=== PATIENT | female | born 1940 | race Caucasian/White ===

== ENCOUNTER 2016-12-30 17:05 | Observation (INO) | payer MEDICARE, OTHER ==
[~2016-12-30] VITALS: Ht 154.9 cm; Wt 71.3 kg
[~2016-12-30 17:05] MED LIST: ADV250INH INH; LEVO100T5 PO; LOTE1TAB PO
[2016-12-30] MEDS ORDERED: ALBU83IN INH (17:25)
[2016-12-30 17:54] LABS: BASO % 0.7 % (0.0-1.0); EOS # 0.3 K/mm3 (0.0-0.50); EOS % 3.2 % (0.0-3.0); LARGE UNSTAINED CELL # 0.1 K/mm3 (0.0-0.4); LARGE UNSTAINED CELL % 1.3 % (0.0-4.0); LYMPH # 1.5 K/mm3 (1.5-4.5); LYMPH % 16.6 % (24.0-44.0); MEAN CORPUSCULAR HEMOGLOBIN 35.9 pg (27.0-33.0); MEAN CORPUSCULAR VOLUME 105.5 fl (80.0-96.0); MONO # 0.5 K/mm3 (0.0-0.8); MONO % 5.5 % (0.0-5.0); NEUTROPHILS # 6.1 K/mm3 (1.8-7.7); NEUTROPHILS % 72.8 % (36.0-66.0); PLATELET COUNT, AUTOMATED 289 k/mm3 (150-450); WHITE BLOOD COUNT 8.4 K/mm3 (4.0-10.0)
[2016-12-30 18:14] LABS: CREATININE FOR GFR 1.65 MG/DL (0.55-1.02); GLOMERULAR FILTRATION RATE 32.2 (>39); POTASSIUM SERUM 3.4 MEQ/L (3.5-5.1)
[2016-12-30] MEDS ORDERED: SODIUM CHLORIDE 0.9% 1000 ML IV ONE (18:15)
[2016-12-30 19:01] LABS: MAGNESIUM LEVEL 1.4 MG/DL (1.8-2.4)
--- NOTE | 2016-12-30 19:20 | REPUSA ---
CT of the abdomen and pelvis without contrast Clinical statement: Pain. Technique: Multiple axial CT images were obtained from the base of the lungs to the floor of the pelv is utilizing 5 mm axial slices without administration of contrast. Coronal and sagittal reconstructio ns were also obtained. Comparison: 02/25/2015. Findings: Chest: The visualized lung bases demonstrate minimal atelectasis bilaterally. Abdomen: The kidneys are normal in size bilaterally. There is no evidence of hydronephrosis or nephro lithiasis. The liver, spleen, pancreas, gallbladder and adrenal glands are unremarkable. The aorta de monstrates normal caliber and contour. There is no abdominal lymphadenopathy or ascites. Pelvis: The bowel is unremarkable, with no obstructive or inflammatory changes. Diffuse left-sided di verticulosis is stable. The urinary bladder is within normal limits. There is no pelvic lymphadenopat hy or ascites. The other pelvic structures appear unremarkable. Bones: There are no suspicious osseous abnormalities seen. There is moderate degenerative disc diseas e at L2/L3 and L4/L5. Impression: 1. No obstructive or inflammatory bowel changes. Diffuse left-sided diverticulosis. 2. No evidence of hydronephrosis or nephrolithiasis. 3. Minimal atelectasis in the lung bases bilaterally. 4. Multilevel degenerative disc disease in the lumbar spine as described.
[2016-12-30] MEDS ORDERED: MAG SULF 1GM/100ML (MAG RUN) 1 GM in APPROPRIATE DILUENT 1 EA IV ONE (20:00)
[2016-12-30] MEDS ORDERED: VITA500L3 PO (20:45)
[2016-12-30] MEDS ORDERED: OMEP20CA3 PO (20:45)
[2016-12-30] MEDS ORDERED: VITA100041 PO (20:45)
[2016-12-30] MEDS ORDERED: VITA500C3 PO (20:45)
[2016-12-30] MEDS ORDERED: ALBUTEROL SULFATE 2.5 MG/0.5 ML INH NEB SOLN INH PRN (21:15)
[2016-12-30] MEDS ORDERED: OMEPRAZOLE 20 MG CAP PO PRN (21:15)
[2016-12-30] MEDS ORDERED: ACETAMINOPHEN TAB 650MG DOSE (2X325MG) PO PRN (21:15)
[2016-12-30] MEDS ORDERED: BENAZEPRIL 20 MG TAB PO ONE (21:30)
[2016-12-30] MEDS ORDERED: POTASSIUM CHLORIDE 10% LIQ 20 MEQ/15 ML UDC PO ONE (21:45)
--- NOTE | 2016-12-30 22:11 | HPE ---
DATE OF ADMISSION: 12/30/2016 CHIEF COMPLAINT: Syncopal episode. PRIMARY CARE PROVIDER: KECIA Pineda, [facility] in [place]. HISTORY OF PRESENT ILLNESS: This is a 76-year-old female with a history of asthma, hypothyroidism, hypertension who was out shopping with her daughter, they were going to get something to drink, when she became very diaphoretic, felt faint, lightheaded, and the daughter witnessed the patient to have a syncopal episode. Emergency medical service (EMS) was called. Patient was brought to the emergency room. Per EMS, their blood pressure was 99/82. Upon arrival in the emergency room, blood pressure was 113/62, pulse was 80, respirations were 18. Patient states that she has a history of intermittent low abdominal pain that will radiate into her back. She states that she started having the abdominal pain last evening, but it was more intense than she has had it in the past, it lasted all day. She denied any fever, chills, nausea, vomiting, diarrhea, hematochezia, or melena. She states they went shopping, the pain had eased up some, and then she had the faint episode. In the emergency room, white count was 8.4, hemoglobin 12.8, hematocrit 37.7, platelets were 289, sodium was slightly low at 135, potassium 3.4, BUN 48, creatinine 1.6. CPK, CK-MB and troponin were normal. TSH was slightly elevated at 6.38. Magnesium was 1.4. She was given a gram of magnesium and a liter of normal saline. She was feeling better. CT of the abdomen and pelvis was done. She had no obstructive or inflammatory bowel changes, diffuse left-sided diverticulosis, no evidence of hydronephrosis or nephrolithiasis, minimal atelectasis in the lung bases bilaterally, multilevel degenerative disc disease in the lumbar spine. Assessment was done. Patient will be admitted to observation status on telemetry, rule out cardiac arrhythmia, monitor blood pressure, recheck magnesium. ALLERGIES: CODEINE, DIPHENHYDRAMINE, MOXIFLOXACIN, SULFA. SOCIAL HISTORY: Patient is . She does not smoke cigarettes. She occasionally drinks alcohol. She does not use recreational drugs. PAST MEDICAL HISTORY: 1. Asthma. 2. Hypothyroidism. 3. Hypertension. She had a normal echocardiogram 02/26/2015, after a vasovagal syncopal episode at that time. She had normal EGD and colonoscopy, noting only a small hiatal hernia on 02/11/2014. PAST SURGICAL HISTORY: 1. Appendectomy. 2. Vaginal hysterectomy. 3. EGD and colonoscopy. 4. Skin cancer removed from left leg. FAMILY HISTORY: Noncontributory. 10-systems review, other than as described in history of present illness (HPI), was unremarkable. CURRENT MEDICATIONS: - Advair Diskus 250/50 one inhalation twice a day - Lotensin HCT 20/25 one by mouth daily - levothyroxine 100 mcg by mouth daily - albuterol 2.5 mg/3 mL one vial via nebulizer four times a day as needed for shortness of breath or wheeze PHYSICAL EXAMINATION: 76-year-old cooperative female in no acute distress. Blood pressure now 126/66. Height 5 feet 1 inches, weight 150 pounds. The patient is alert and oriented times three. Pupils equal and reactive to light. Extraocular movements are intact. Cornea and sclerae clear. Conjunctivae is normal. No facial asymmetry. Pharynx, tongue, gums pink and moist. Tongue is midline. Neck is supple without lymphadenopathy. No thyromegaly. No goiter. Carotids 2+ without bruit. Chest clear to auscultation without wheeze or retraction. Heart is regular. Abdomen is soft, minimal diffuse tenderness left lower quadrant. No rebound or guarding. No masses, pulsations, or bruits. No organomegaly. Bowel sounds are positive. Genitourinary/rectal not done. Extremities show equal strength, full range of motion. No cyanosis, clubbing, or edema. Hand seed cleaning manager equal. Peripheral pulses equal and palpable bilaterally. Skin is warm and dry. IMPRESSION: Syncopal episode, possible vasovagal. Admit, place on telemetry. Hypomagnesemia. Gram of replacement given. Recheck magnesium level. Hypokalemia. Replacement ordered. Recheck basic metabolic panel (BMP) in the morning. Hypothyroidism. Thyroid stimulating hormone (TSH) is slightly elevated. Will get a thyroid profile in the morning. Adjust dose if needed. History of asthma. Currently clinically stable. Hypertension. Will reorder Lotensin. Hold the HCT now as BUN and creatinine were up slightly. Patient will be admitted to observation status on telemetry. Will monitor for arrhythmias. Will do CT of the head.
[2016-12-30 23:10] VITALS: BP 148/76
--- NOTE | 2016-12-31 03:10 | REPUSA ---
CT of the head Clinical history: Headache. Comparison 02/25/2015. Protocol: Multiple axial CT images obtained with 5 mm slice thickness were obtained through the head without administration of contrast. Findings: The ventricles and sulci are symmetric but prominent in size bilaterally. There are periven tricular areas of low attenuation throughout the deep white matter. There is no evidence of acute hem orrhage or infarct. There is no midline shift, mass effect, or extra-axial fluid collection. The osse ous structures are unremarkable. The visualized paranasal sinuses and mastoid air cells are clear. Impression: No acute hemorrhage or infarct. Findings are consistent with age-related atrophy and [employer]orina small vessel ischemic disease.
[2016-12-31 04:00] VITALS: BP 120/57
[2016-12-31] MEDS ORDERED: LEVOTHYROXINE 0.1 MG TAB (100 MCG) PO SCH (06:00)
[2016-12-31 08:00] VITALS: BP 151/70
--- NOTE | 2016-12-31 08:27 | ECGEPIP ---
Stationary ECG Study [facility] - ED Test Date: 2016-12-30 Pat Name: FRANK SMITH Department: Room: [place] [address] Gender: F Mainframe Consultant: RAVIN : 1940 Requested By: Ronda Wallace Order Number: [id number] Reading MD: Ronda Wallace Measurements Intervals [place] Rate: 83 P: 28 MI: 166 QRS: 3 QRSD: 100 T: 7 QT: 380 QTc: 448 Interpretive Statements SINUS RHYTHM NONSPECIFIC T-WAVE ABNORMALITY DECREASED RATE 02/25/15 Electronically Signed On 12-31-2016 8:26:39 EDT by Ronda Wallace
[2016-12-31] MEDS ORDERED: VITAMIN D 1,000 INTERNATIONAL UNITS TABLET PO SCH (09:00)
[2016-12-31] MEDS ORDERED: ASCORBIC ACID 500 MG TAB PO SCH (09:00)
[2016-12-31] MEDS ORDERED: CYANOCOBALAMIN 500 MCG TAB PO SCH (09:00)
[2016-12-31] MEDS ORDERED: MAGNESIUM OXIDE 400 MG TAB (MAG-OX) PO ONE (09:00)
[2016-12-31] MEDS ORDERED: ADVAIR DISKUS 250/50 INH PWD INH SCH (09:00)
[2016-12-31 09:26] VITALS: BP_SYST 141; BP_SYST 142; BP_SYST 151; BP_DIAS 65; BP_DIAS 67; BP_DIAS 73
[2016-12-31 09:26] LABS: BASO % 0.6 % (0.0-1.0); EOS # 0.4 K/mm3 (0.0-0.50); EOS % 6.9 % (0.0-3.0); LARGE UNSTAINED CELL # 0.1 K/mm3 (0.0-0.4); LARGE UNSTAINED CELL % 2.1 % (0.0-4.0); LYMPH # 1.7 K/mm3 (1.5-4.5); LYMPH % 27.4 % (24.0-44.0); MEAN CORPUSCULAR HEMOGLOBIN 35.9 pg (27.0-33.0); MEAN CORPUSCULAR VOLUME 105.6 fl (80.0-96.0); MONO # 0.4 K/mm3 (0.0-0.8); MONO % 7.1 % (0.0-5.0); NEUTROPHILS # 3.5 K/mm3 (1.8-7.7); PLATELET COUNT, AUTOMATED 281 k/mm3 (150-450); RED CELL DISTRIBUTION WIDTH 12.5 % (11.5-14.5); WHITE BLOOD COUNT 6.2 K/mm3 (4.0-10.0)
[2016-12-31] MEDS ORDERED: POTASSIUM CHLORIDE 10 MEQ SR TABLET PO ONE (09:45)
[2016-12-31] MEDS ORDERED: SODIUM CHLORIDE 0.9% 1000 ML IV ONE (09:45)
[2016-12-31 09:59] LABS: ALBUMIN 3.2 GM/DL (3.2-5.2); ALKALINE PHOSPHATASE 49 U/L (45-117); ALT/SGPT 19 U/L (12-78); ANION GAP 11 MEQ/L (8-16); AST/SGOT 15 U/L (15-37); BILIRUBIN,TOTAL 0.7 MG/DL (0.2-1.0); BLOOD UREA NITROGEN 33 MG/DL (7-18); CALCIUM LEVEL 8.7 MG/DL (8.8-10.2); CARBON DIOXIDE LEVEL 24 MEQ/L (21-32); CHLORIDE LEVEL 101 MEQ/L (98-107); CREATININE FOR GFR 1.23 MG/DL (0.55-1.02); GLOMERULAR FILTRATION RATE 45.2 (>39); GLUCOSE, FASTING 100 MG/DL (83-110); MAGNESIUM LEVEL 1.7 MG/DL (1.8-2.4); POTASSIUM SERUM 4.1 MEQ/L (3.5-5.1); SODIUM LEVEL 136 MEQ/L (136-145); TOTAL PROTEIN 6.1 GM/DL (6.4-8.2)
[2016-12-31 10:06] LABS: T UPTAKE 35 % (30-39)
[2016-12-31 10:09] LABS: FOLATE 10.2 NG/ML; VITAMIN B12 LEVEL 334 PG/ML
--- NOTE | 2016-12-31 10:16 | DSES ---
DATE OF ADMISSION: 12/30/2016 DATE OF DISCHARGE: 12/31/16 PRIMARY CARE PHYSICIAN: Gerhard Watt. PRIMARY DISCHARGE DIAGNOSES: Vasovagal syncope. Abnormal EKG with T wave inversions anterolaterally. negative cardiac markers x3. History of asthma. Hypothyroidism. Hypertension. DISCHARGE MEDICATIONS: - albuterol as needed - vitamin C 500 daily - vitamin D 1000 units daily - vitamin B12 500 mcg daily - levothyroxine 100 mcg daily - Lotensin one tablet daily - omeprazole 20 daily - Advair discus one puff twice daily DISCHARGE INSTRUCTIONS: Hold Lotensin for systolic pressure less than 120. HOSPITAL COURSE: 76-year-old female presented to the emergency room with complaints of diaphoresis, lightheadedness and near syncope. Patient was brought into the emergency room, was found to have blood pressure of 99/82 to 113/62. At that time, patient was also having abdominal cramping and pain. CT abdomen and pelvis were negative. CT of the head to evaluate syncopal episode was negative. EKG initial set had no irregular rhythm. Echo 2014 after vasovagal episode was normal. Normal EGD, colonoscopy 02/11/2014. Patient was admitted on telemetry which showed sinus rhythm. No irregular arrhythmias. Patient was adamant about leaving. Today she felt well. CBC, metabolic panel were within normal limits. Creatinine was 1.65, potassium was low at 3.4 which was supplemented. Baseline creatinine was 1.05. Patient was hydrated with IV fluids. Patient most likely had syncopal episode most likely secondary to dehydration with acute on chronic renal failure. Lotensin was discontinued and potassium was supplemented. Patient is to have repeat metabolic panel to be ordered by her primary care physician as outpatient. Repeat EKG was abnormal with recommendations for outpatient stress test. Troponins were negative times three sets. CT abdomen and pelvis showed no obstructive or inflammatory bowel changes. Diffuse left sided diverticulosis. No inflammation. No evidence of hydronephrosis or nephrolithiasis. Atelectasis bilateral lungs. Mild degenerative disc disease of the lumbar spine. CT of the head: No acute hemorrhage or infarct consistent with age related atrophy and chronic small vessel ischemic disease. LABORATORY DATA: 12/31 CBC, white count 6.2, hemoglobin 12, hematocrit 37, platelet count 281. Metabolic panel is still pending. Baseline creatinine 1.05 02/27/2015. 12/30/2016 sodium 135, potassium 3.4, chloride 100, bicarbonate 22, BUN 48, creatinine 1.65, glucose 112. Troponin less than 0.02. MB fraction 1.3. Total CK of 80. Microbiology: None. FOLLOWUP ISSUES: 1. Abnormal EKG. Will need outpatient stress test for further evaluation of her current syncopal episodes, may benefit from a loop recorder. Check orthostatics to rule out hydration. Hold patient Lotensin if severe dehydration or worsening creatinine. Time spent on discharge: 30 minutes. MTDD
--- NOTE | 2017-01-02 17:40 | ECGEPIP ---
Stationary ECG Study [facility] Test Date: 2016-12-31 Pat Name: FRANK SMITH Department: Room: [place] [address] Gender: F Rubber Splicer: larry : 1940 Requested By: Jessica Gillis [facility] Order Number: [id number] Reading MD: Skip Reza Measurements Intervals [place] Rate: 76 P: 38 ND: 168 QRS: 6 QRSD: 101 T: 15 QT: 402 QTc: 455 Interpretive Statements SINUS RHYTHM MODERATE T-WAVE ABNORMALITY, CONSIDER ANTERIOR ISCHEMIA COMPARED TO THE 2 TRACINGS IN THE SYSTEM, NO SIGNIFICANT CHANGES Electronically Signed On 01-02-2017 17:40:14 EDT by Skip Reza
== END 2016-12-31 11:48 | disposition home or self-care (01) ==
LOC: M ED 18:37 → M ED INP 21:01
PROVIDERS: ADMIT Internal Medicine; ATTEND Internal Medicine
DX: R55 Syncope and collapse (principal); R94.31 Abnormal electrocardiogram [ECG] [EKG]; E03.9 Hypothyroidism, unspecified; E87.6 Hypokalemia; E83.42 Hypomagnesemia; J45.909 Unspecified asthma, uncomplicated; I10 Essential (primary) hypertension; Z79.899 Other long term (current) drug therapy; Z88.2 Allergy status to sulfonamides; Z88.8 Allergy status to other drugs, medicaments and biological substances
CPT/HCPCS: 36415; 70450; 74176; 80048; 80053; 81001; 82550; 82553; 82607; 82746; 83735; 84436; 84443; 84479; 84484; 85025; 87086; 93005; 93041; 94640; 94760; 96360; 96361; 97161; 99285; G0378; G8978; G8979; G8980; J3475

== ENCOUNTER → 2017-01-27 | Outpatient (CLI) | payer MEDICARE, OTHER ==
[~2017-01-27] MED LIST changes: +ALBU83IN INH; +OMEP20CA3 PO; +VITA100041 PO; +VITA500C3 PO; +VITA500L3 PO
[2017-01-27 09:50] LABS: ANION GAP 7 MEQ/L (8-16); BLOOD UREA NITROGEN 14 MG/DL (7-18); CALCIUM LEVEL 8.6 MG/DL (8.8-10.2); CARBON DIOXIDE LEVEL 24 MEQ/L (21-32); CHLORIDE LEVEL 109 MEQ/L (98-107); CREATININE FOR GFR 0.86 MG/DL (0.55-1.02); GLOMERULAR FILTRATION RATE > 60.0 (>39); GLUCOSE, FASTING 99 MG/DL (83-110); MAGNESIUM LEVEL 1.8 MG/DL (1.8-2.4); POTASSIUM SERUM 4.4 MEQ/L (3.5-5.1); SODIUM LEVEL 140 MEQ/L (136-145)
== END ==
LOC: M LAB 08:49
PROVIDERS: ATTEND Internal Medicine Cardiovascular Disease
DX: I10 Essential (primary) hypertension (principal); E83.42 Hypomagnesemia

== ENCOUNTER → 2017-03-19 | Outpatient (REF) ==
[~2017-03-19] MED LIST changes: +VITA-182 PO; -VITA100041 PO
== END ==
LOC: M LAB 11:45
PROVIDERS: ATTEND Nurse Practitioner Adult Health
DX: Z02.9 Encounter for administrative examinations, unspecified (principal)

== ENCOUNTER → 2017-06-02 | Outpatient (CLI) | payer MEDICARE, BC ==
--- NOTE | 2017-06-02 15:48 | REP ---
Chest x-ray: Two views. History: Acute bronchitis. Comparison radiograph February 25, 2015. Findings: There is a surgical clip at the right hilus, unchanged. The lungs are somewhat hyperinflated as before, but free of infiltrate. Pleural angles are sharp. Heart size is borderline, unchanged. The aorta is calcific and somewhat tortuous. There is a dextroconvex rotoscoliotic curve in the lumbar spine. No infiltrate is seen in the lung ramos. Impression: Hyperinflation consistent with COPD. No acute infiltrate. Signed by Rubén Wick MD 06/02/2017 04:58 P
== END ==
LOC: M WUC 14:06
PROVIDERS: ATTEND Family Medicine
DX: R06.9 Unspecified abnormalities of breathing (principal)

== ENCOUNTER → 2017-12-15 | Outpatient (CLI) | payer MEDICARE, BC, OTHER ==
[2017-12-15 16:24] LABS: BASO # 0.1 10^3/uL (0.0-0.2); BASO % 0.5 % (0.0-1.0); EOS # 0.5 10^3/uL (0.0-0.50); EOS % 4.8 % (0.0-3.0); HEMATOCRIT 40.5 % (36.0-47.0); HEMOGLOBIN 13.4 g/dl (12.0-15.5); IMMATURE GRANULOCYTE % 0.7 % (0-3.0); LYMPH # 1.9 10^3/uL (1.5-4.5); LYMPH % 19.9 % (24.0-44.0); MEAN CORPUSCULAR HEMOGLOBIN 33.5 pg (27.0-33.0); MEAN CORPUSCULAR HGB CONC 33.1 g/dl (32.0-36.5); MEAN CORPUSCULAR VOLUME 101.3 fl (80.0-96.0); MONO # 1.1 10^3/uL (0.0-0.8); MONO % 11.1 % (0.0-5.0); NEUTROPHILS # 6.1 10^3/uL (1.8-7.7); PLATELET COUNT, AUTOMATED 261 10^3/uL (150-450); RED CELL DISTRIBUTION WIDTH 12.3 % (11.5-14.5); WHITE BLOOD COUNT 9.7 10^3/uL (4.0-10.0)
[2017-12-15 16:39] LABS: ALBUMIN 3.4 GM/DL (3.2-5.2); ALBUMIN/GLOBULIN RATIO 0.92 (1.00-1.93); ALKALINE PHOSPHATASE 81 U/L (45-117); ALT/SGPT 19 U/L (12-78); ANION GAP 7 MEQ/L (8-16); AST/SGOT 19 U/L (7-37); BILIRUBIN,TOTAL 1.6 MG/DL (0.2-1.0); BLOOD UREA NITROGEN 13 MG/DL (7-18); CALCIUM LEVEL 9.3 MG/DL (8.8-10.2); CARBON DIOXIDE LEVEL 23 MEQ/L (21-32); CHLORIDE LEVEL 109 MEQ/L (98-107); CREATININE FOR GFR 0.88 MG/DL (0.55-1.30); GLOMERULAR FILTRATION RATE > 60.0 (>39); GLUCOSE, FASTING 106 MG/DL (70-100); POTASSIUM SERUM 4.6 MEQ/L (3.5-5.1); SODIUM LEVEL 139 MEQ/L (136-145); TOTAL PROTEIN 7.1 GM/DL (6.4-8.2)
== END ==
LOC: M WUC 12:35
DX: R10.30 Lower abdominal pain, unspecified (principal)
CPT/HCPCS: 80053

== ENCOUNTER → 2018-04-16 | Outpatient (CLI) | payer MEDICARE, BC, OTHER | LOC: M RAD 07:04 | DX: R10.817 Generalized abdominal tenderness (principal); R14.0 Abdominal distension (gaseous); K76.0 Fatty (change of) liver, not elsewhere classified; Z90.710 Acquired absence of both cervix and uterus | CPT/HCPCS: 76700 ==

== ENCOUNTER → 2019-06-02 | Outpatient (CLI) | payer MEDICARE, BC, OTHER ==
[~2019-06-02] MED LIST changes: -OMEP20CA3 PO; +OMEP20CA4 PO
[2019-06-02 18:39] LABS: BASO # 0.1 10^3/uL (0.0-0.2); BASO % 1.4 % (0.0-1.0); EOS % 11.9 % (0.0-3.0); HEMATOCRIT 41.6 % (36.0-47.0); HEMOGLOBIN 13.7 g/dl (12.0-15.5); LYMPH # 1.9 10^3/uL (1.5-5.0); LYMPH % 22.5 % (24.0-44.0); MEAN CORPUSCULAR HEMOGLOBIN 35.1 pg (27.0-33.0); MEAN CORPUSCULAR HGB CONC 32.9 g/dl (32.0-36.5); MEAN CORPUSCULAR VOLUME 106.7 fl (80.0-96.0); MONO % 11.8 % (0.0-5.0); NEUTROPHILS # 4.5 10^3/uL (1.5-8.5); NEUTROPHILS % 52.1 % (36.0-66.0); PLATELET COUNT, AUTOMATED 311 10^3/uL (150-450); WHITE BLOOD COUNT 8.6 10^3/uL (4.0-10.0)
[2019-06-02 18:50] LABS: ALBUMIN 3.8 GM/DL (3.2-5.2); BILIRUBIN,TOTAL 0.7 MG/DL (0.2-1.0); CALCIUM LEVEL 9.2 MG/DL (8.8-10.2); CHOLESTEROL RISK RATIO 2.702 (<5); CREATININE FOR GFR 1.31 MG/DL (0.55-1.30); GLOMERULAR FILTRATION RATE 41.7 (>39); POTASSIUM SERUM 3.9 MEQ/L (3.5-5.1); TOTAL PROTEIN 7.5 GM/DL (6.4-8.2)
[2019-06-02 18:51] LABS: TOTAL 25(OH) VITAMIN D 20.8 NG/ML (30.0-100.0)
== END ==
LOC: M WUC 12:08
PROVIDERS: ATTEND Physician Assistant
DX: I10 Essential (primary) hypertension (principal)

== ENCOUNTER 2019-11-09 12:12 | Emergency (ER) | payer MEDICARE, BC, OTHER ==
[~2019-11-09] VITALS: Ht 154.9 cm; Wt 73.6 kg
[~2019-11-09 12:12] MED LIST changes: +OMEP1CAP73 PO; -OMEP20CA4 PO
[2019-11-09 13:13] LABS: BASO # 0.1 10^3/uL (0.0-0.2); BASO % 0.5 % (0.0-1.0); EOS # 0.1 10^3/uL (0.0-0.5); EOS % 0.4 % (0.0-3.0); HEMATOCRIT 43.2 % (36.0-47.0); LYMPH # 1.9 10^3/uL (1.5-5.0); LYMPH % 13.9 % (24.0-44.0); MEAN CORPUSCULAR HEMOGLOBIN 35.8 pg (27.0-33.0); MEAN CORPUSCULAR HGB CONC 34.7 g/dl (32.0-36.5); MEAN CORPUSCULAR VOLUME 103.1 fl (80.0-96.0); MONO # 1.1 10^3/uL (0.0-0.8); MONO % 7.9 % (0.0-5.0); NEUTROPHILS # 10.4 10^3/uL (1.5-8.5); NEUTROPHILS % 75.7 % (36.0-66.0); PLATELET COUNT, AUTOMATED 309 10^3/uL (150-450); RED BLOOD COUNT 4.19 10^6/uL (4.00-5.40); WHITE BLOOD COUNT 13.8 10^3/uL (4.0-10.0)
[2019-11-09 13:25] LABS: INR 1.01
[2019-11-09 13:26] LABS: PARTIAL THROMBOPLASTIN TIME 27.1 SECONDS (25.0-38.4)
--- NOTE | 2019-11-09 13:30 | REP ---
CT of the brain without IV contrast: Comparison is 12/30/2016. There is no subdural or epidural hematoma. There is no intraparenchymal or subarachnoid hemorrhage. There is no edema, mass effect or midline shift. The ventricles and sulci are dilated compatible with diffuse volume loss. This has progressed from the prior study. There are zones of decreased attenuation in the subcortical white matter, similar to the prior study, compatible with chronic microvascular ischemia. Impression: No acute hemorrhage, mass effect, or midline shift. Chronic diffuse volume loss which has progressed. Findings compatible with chronic microvascular ischemia, unchanged. Electronically Signed by Kingsley Mcdonald MD 11/09/2019 01:22 P
[2019-11-09 13:36] LABS: BLOOD UREA NITROGEN 35 MG/DL (7-18); CALCIUM LEVEL 10.7 MG/DL (8.8-10.2); CARBON DIOXIDE LEVEL 22 MEQ/L (21-32); CHLORIDE LEVEL 99 MEQ/L (98-107); CK-MB VALUE MASS 1.9 NG/ML (<3.6); CPK CREATINE PHOSPHOKINASE 83 U/L (26-192); CREATININE FOR GFR 1.57 MG/DL (0.55-1.30); FREE T4 1.64 NG/DL (0.76-1.46); GLOMERULAR FILTRATION RATE 33.8 (>39); GLUCOSE, FASTING 113 MG/DL (70-100); MAGNESIUM LEVEL 1.6 MG/DL (1.8-2.4); MB/CK RELATIVE INDEX 2.29 (< OR =4); POTASSIUM SERUM 3.6 MEQ/L (3.5-5.1); SODIUM LEVEL 131 MEQ/L (136-145); TROPONIN I < 0.02 NG/ML (< 0.10)
[2019-11-09] MEDS ORDERED: LEVO112T2 (13:36)
[2019-11-09] MEDS ORDERED: AZIT-12 (13:36)
--- NOTE | 2019-11-09 13:56 | REP ---
Chest x-ray: Two views. History: Syncope. Comparison study: June 02, 2017. Findings: The lungs are hyperinflated. There is a surgical clip in the right hilus. Pleural angles are sharp. The heart is enlarged. These findings are unchanged from the comparison study. No new infiltrate is seen. Pulmonary vasculature is not increased. There are degenerative changes in the thoracic spine. Impression: Hyperinflation and mild cardiomegaly unchanged from comparison study. Surgical clip in the right hilus. No acute infiltrate. Electronically Signed by Rubén Wick MD 11/09/2019 01:47 P
[2019-11-09] MEDS ORDERED: MAG SULF 1GM/100ML (MAG RUN) 1 GM in IV 1 EA IV ONE (14:45)
[2019-11-09] MEDS ORDERED: NS 500 ML IV ONE (14:45)
[2019-11-09 17:01] VITALS: BP 151/69
--- NOTE | 2019-11-10 20:48 | ECGEPIP ---
[facility] - ED Test Date: 2019-11-09 Pat Name: FRANK SMITH Department: Room: - Gender: Female Planner Scheduler: MELY : 1940 Requested By: DRU Oropeza Order Number: [id number] Reading MD: Ronda Wallace Measurements Intervals [place] Rate: 84 P: 21 KS: 140 QRS: -2 QRSD: 105 T: 27 QT: 376 QTc: 444 Interpretive Statements SINUS RHYTHM WITH OCCASIONAL SUPRAVENTRICULAR PREMATURE COMPLEXES LOW QRS VOLTAGE IN PRECORDIAL LEADS INCOMPLETE RIGHT BUNDLE BRANCH BLOCK NONSPECIFIC ST & T-WAVE ABNORMALITY LESS PRONOUNCED T-WAVE ABNORMALITY COMPARED 12/31/16 Electronically Signed on 11-10-2019 20:48:02 EDT by Ronda Wallace
== END 2019-11-09 17:06 | disposition home or self-care (01) ==
LOC: M ED 12:12
DX: R55 Syncope and collapse (principal); E86.0 Dehydration; E83.42 Hypomagnesemia; R10.84 Generalized abdominal pain; R94.31 Abnormal electrocardiogram [ECG] [EKG]; I51.7 Cardiomegaly; J45.909 Unspecified asthma, uncomplicated; K58.0 Irritable bowel syndrome with diarrhea; Z88.0 Allergy status to penicillin; Z88.2 Allergy status to sulfonamides; Z88.5 Allergy status to narcotic agent; Z88.8 Allergy status to other drugs, medicaments and biological substances; Z79.899 Other long term (current) drug therapy
CPT/HCPCS: 36415; 70450; 71046; 80048; 82550; 82553; 83735; 84439; 84443; 84484; 85025; 85610; 85730; 87486; 87581; 87633; 87798; 93005; 93041; 94760; 96361; 96365; 99285; J3475

== ENCOUNTER → 2020-06-01 | Outpatient (CLI) | payer MEDICARE, BC, OTHER ==
[~2020-06-01] MED LIST changes: +AUGM875T28 PO; +AZIT-12; +BENA20TA6 PO; +D31000TA2 PO; +DICY1CAP8 PO; +DIPH2.5T14 PO; +LEVO112T2 PO; +MAGN64TASA PO
--- NOTE | 2020-06-07 16:46 | REP ---
LUMBAR SPINE SERIES: 5-VIEWS HISTORY: Low back pain. COMPARISON: No comparison lumbosacral spine radiographs. Comparison is made with imaging CT abdomen and pelvis 12/30/2016. RADIOGRAPHIC FINDINGS: There is a dextroconvex curvature visible on the AP view unchanged from coronal reformation images from 12/2016. Vascular calcification is seen in a normal caliber aorta and in the left upper quadrant. Bowel gas pattern is normal. Psoas margins are symmetric. Sacrum and sacroiliac (SI) joints are intact. There is osteoarthritic facet sclerosis and hypertrophy at L5-S1 and L4-5 bilaterally mild in degree. Degenerative disc changes are noted most pronounced at L4-5 and L2-3, but also present at L3-4. No bony destructive lesion. Pedicles and posterior elements are otherwise intact. There is no evidence of spondylolysis or spondylolisthesis. IMPRESSION: Degenerative spondylosis changes. Degenerative disc disease most pronounced at L4-5 and L2-3. Osteoarthritic facet sclerosis and hypertrophy bilaterally at L5- S1 and L4-5. This latter facet arthropathy finding is more pronounced on the right than the left. No significant change from 12/30/2016 MPR images. MTDD
== END ==
LOC: M RAD 09:17
PROVIDERS: ATTEND Physician Assistant
DX: R10.9 Unspecified abdominal pain (principal); R14.0 Abdominal distension (gaseous); M54.5 Low back pain

== ENCOUNTER → 2020-06-06 | Outpatient (CLI) | payer MEDICARE, BC, OTHER ==
[~2020-06-06] MED LIST changes: -AUGM875T28 PO; -BENA20TA6 PO; -D31000TA2 PO; -DICY1CAP8 PO; -DIPH2.5T14 PO; +LEVO112T2; -LEVO112T2 PO; -MAGN64TASA PO
--- NOTE | 2020-06-12 15:53 | REP ---
COMPLETE ABDOMINAL SONOGRAPHY HISTORY: Abdomen pain and bloating. FINDINGS: Scanning through the right upper quadrant of the abdomen demonstrates a normal size thin walled gallbladder without evidence of stone or polyp. Common bile duct is normal measuring 0.6 cm in greatest diameter. Liver parenchyma is somewhat hyperechoic consistent with fatty infiltration and mildly coarse in texture. No hepatic mass lesion is seen. The liver is not enlarged. No pancreatic abnormality is observed. Normal caliber aorta is seen with mild atherosclerotic plaquing, 2.7 cm in AP dimension. Scanning of the left upper quadrant demonstrates a homogeneous normal size spleen, 8.9 cm x 9.0 x 3.8 cm. There is no evidence of ascites. Renal cortical echogenicity pattern is normal and contours are smooth bilaterally. Right renal dimensions are 8.4 x 3.9 x 4.2 cm. The left kidney measures 9.5 x 3.7 x 4.1 cm. There are two small echogenic foci in the right kidney, one in the upper pole and one in the lower pole, which could conceivably be intrarenal calculi. Vascular calcification could have this appearance as well. No hydronephrosis seen on either side. No renal mass or cyst is observed. IMPRESSION: Cannot exclude intrarenal nephrolithiasis on the right. No hydronephrosis seen. Probable mild fatty infiltration of the liver. Otherwise negative. MTDD
== END ==
LOC: M RAD 09:31
PROVIDERS: ATTEND Physician Assistant
DX: R10.9 Unspecified abdominal pain (principal); R14.0 Abdominal distension (gaseous); M54.5 Low back pain

== ENCOUNTER 2020-07-10 08:44 | Observation (INO) | payer MEDICARE, BC, OTHER ==
[~2020-07-10] VITALS: Ht 154.9 cm; Wt 66.2 kg
[~2020-07-10 08:44] MED LIST changes: -LEVO112T2; +LEVO112T2 PO
[2020-07-10] MEDS ORDERED: DIPH2.5T14 PO (08:57)
[2020-07-10] MEDS ORDERED: ONDANSETRON 4MG/2ML VIAL IV ONE (09:15)
[2020-07-10 09:28] LABS: BASO # 0.1 10^3/uL (0.0-0.2); BASO % 0.5 % (0.0-1.0); EOS # 0.2 10^3/uL (0.0-0.5); EOS % 2.3 % (0.0-3.0); HEMATOCRIT 35.6 % (36.0-47.0); HEMOGLOBIN 11.9 g/dl (12.0-15.5); LYMPH # 1.1 10^3/uL (1.5-5.0); MEAN CORPUSCULAR HEMOGLOBIN 33.8 pg (27.0-33.0); MEAN CORPUSCULAR HGB CONC 33.4 g/dl (32.0-36.5); MEAN CORPUSCULAR VOLUME 101.1 fl (80.0-96.0); MONO # 0.9 10^3/uL (0.0-0.8); MONO % 8.6 % (0.0-5.0); NEUTROPHILS # 7.7 10^3/uL (1.5-8.5); NEUTROPHILS % 77.1 % (36.0-66.0); PLATELET COUNT, AUTOMATED 356 10^3/uL (150-450); RED BLOOD COUNT 3.52 10^6/uL (4.00-5.40)
[2020-07-10] MEDS: NS 1,000 ML IV SCH ×3 (09:33→13:34)
[2020-07-10] MEDS: MORPHINE 2 MG/ML 1ML VIAL (J2270) IV PRN ×2 (09:33→16:41)
[2020-07-10] MEDS: NS 500 ML IV ONE ×2 (09:33→11:02)
[2020-07-10 09:38] LABS: INR 0.99; PROTHROMBIN TIME 13.3 SECONDS (12.5-14.3)
[2020-07-10] MEDS ORDERED: POTASSIUM CHLORIDE 10 MEQ SR TABLET PO ONE ×2 (09:45→21:45)
[2020-07-10 09:52] LABS: ALBUMIN 2.6 GM/DL (3.2-5.2); BILIRUBIN,DIRECT 0.2 MG/DL (0.0-0.2); BILIRUBIN,TOTAL 0.4 MG/DL (0.2-1.0); MAGNESIUM LEVEL 1.5 MG/DL (1.8-2.4); TOTAL PROTEIN 5.8 GM/DL (6.4-8.2)
--- NOTE | 2020-07-10 09:57 | ECGEPIP ---
[facility] - ED Test Date: 2020-07-10 Pat Name: FRANK SMITH Department: Room: - Gender: Female Cannery Worker: vidal : 1940 Requested By: Ronda Wallace Order Number: [id number] Reading MD: Maikel Franklin Measurements Intervals [place] Rate: 77 P: 28 CT: 173 QRS: 15 QRSD: 108 T: 41 QT: 397 QTc: 450 Interpretive Statements SINUS RHYTHM INCOMPLETE RIGHT BUNDLE BRANCH BLOCK NONSPECIFIC ST & T-WAVE ABNORMALITY SIMILAR TO 11/09/19 Electronically Signed on 07-10-2020 9:57:21 EST by Maikel Franklin
[2020-07-10] MEDS ORDERED: METOCLOPRAMIDE INJ 10MG/2ML VIAL (J2765 PER 1) IV ONE (10:45)
[2020-07-10] MEDS ORDERED: ISOVUE-370 76% 100ML VIAL As Ordered ONE (10:55)
--- NOTE | 2020-07-10 11:41 | REP ---
INDICATION: abd pain diarrhea. COMPARISON: CT 12/30/2016. TECHNIQUE: Patient received bolus 100 mL Isovue 370 with scanning through the abdomen pelvis and both coronal and sagittal reconstructions provided. FINDINGS: CT abdomen lung bases show some linear fibrotic change is some eventration of posterior diaphragms with fat unchanged heart mildly prominent no pericardial thickening or effusion. There is no hiatal hernia. Stomach collapsed. There is no hepatomegaly, splenomegaly, focal hepatic or splenic lesion, intrahepatic biliary dilatation or perihepatic ascites. Adrenal glands were normal gallbladder shows no calcified stone or mass. Pancreas shows no ductal dilatation, calcification, peripancreatic adenopathy or fluid. Small bowel loops show some dilatation and wall thickening and proximal loops of jejunum in a nonspecific pattern there is minimal mesenteric edema adjacent to these. Lung window review of all CT slices shows no perforation or free air. Kidneys show some lobation and evidence of scarring bilaterally unchanged. Sinus lipomatosis noted. No visible renal mass, hydronephrosis, stone or hydroureter. Bone windows show degenerative changes greatest at L2-3 and L4-5 disc space narrowing and osteophytes. No compression deformity or destructive lesion. Posterior elements with facet arthropathy but no spondylolysis. Visualized lower ribs are intact. CT pelvis: Sacrum, pelvis hips, SI joints and pubic rami show no fracture or focal bone lesion there are some degenerative changes. Bladder well filled without mass or wall thickening no distal ureteral stone or dilatation. From mid jejunum to the terminal ileum, the small bowel loops were normal caliber. There is extensive diverticulosis of the left colon and particularly the sigmoid I do not see definite diverticulitis, colitis stricture or mass. The cecum and remainder of the abdominal portion of the colon show only a few scattered diverticula without acute finding. Uterus absent. The vaginal cuff intact. No pelvic mass or free fluid. No ventral or inguinal hernia nor pathologic sized inguinal/pelvic adenopathy. IMPRESSION: 1. Nonspecific dilatation and wall thickening of proximal loops of jejunum in the left upper quadrant to central abdomen suggesting gastroenteritis. Caliber of the distal jejunum and ileum is normal and there are no inflammatory changes. No air-fluid levels. 2. Extensive diverticulosis of sigmoid colon somewhat less in the left colon but no definite diverticulitis or colitis, stricture nor mass. 3. Atherosclerotic calcification of the aorta without aneurysm. There is scarring of both kidneys but no mass, hydronephrosis or stone. Solid organs in the upper abdomen were unremarkable otherwise. <Electronically signed by Jim Dunn > 07/10/20 1132
[2020-07-10] MEDS ORDERED: BENA20TA6 PO (11:56)
[2020-07-10] MEDS ORDERED: D31000TA2 PO (11:56)
[2020-07-10] MEDS ORDERED: MAGN64TASA PO (11:56)
[2020-07-10] MEDS ORDERED: MAG SULF 1GM/100ML (MAG RUN) 1 GM in IV 1 EA IV ONE ×2 (13:15→14:15)
[2020-07-10] MEDS: ADVAIR HFA 115/21MCG INHALER INH SCH ×2 (13:32→19:56)
[2020-07-10] MEDS ORDERED: metroNIDAZOLE 500 MG in IV 1 EA IV SCH (14:00)
[2020-07-10] MEDS ORDERED: KETOROLAC 30 MG/ML 1ML VIAL IV PRN (14:15)
--- NOTE | 2020-07-10 14:20 | HPEPDOC ---
[facility] Medical History & Physical Date of Admission Jul 10, 2020 Date of Service: Jul 10, 2020 Attending Physician: Carlie Noyola MD History and Physical CHIEF COMPLAINT: Diarrhea HISTORY OF PRESENT ILLNESS: Patient is an 80-year-old female with past medical history of hypertension, asthma, hypothyroidism, hypomagnesemia, history of TB status post treatment, history of right bundle-branch block who presented to [facility] emergency room after having diarrhea, increased weakness with decreased appetite over the past several weeks. Her symptoms began on 06/28/2020 when she began experiencing inc reased nausea, mid abdominal/epigastric cramping, 5/10, constant. She was having up to 6 bowel movements watery, slimy and the color yellow a day. She also admits to having chills, decreased appetite, weakness with lightheadedness. She went to see her primary care provider on 07/07/2020 and when she was in the office she had a near syncopal episode. Her PCP advised her to continue to hydrate with water, Gatorade and to rest. She admits to losing a total of 9 lbs over the past several weeks. Today she comes to the ER because she continues to have increased loose stools with decreased appetite and weakness. She denies any recent sick contacts, use of antibiotics, recent hospitalization, recent travel, fevers or vomiting. In the emergency room, vital signs were stable. Abnormal labs were H&H 11/35, potassium 2.8, magnesium 1.5. She was given 40 mEq of potassium supplement. CT of the abdomen and pelvis showed gastroenteritis. The patient continued to have some lightheadedness and displayed weakness. She was started on IV fluids. The patient was admitted under observation status for gastroenteritis, dehydration and weakness. REVIEW OF SYSTEMS: CONSTITUTIONAL: Denies unexplained weight gain, fever, night sweats EYES: Denies eye drainage, eye pain, visual changes, dry/irritated eye EARS, NOSE, MOUTH, THROAT: Denies difficulty hearing, ringing in ears, mouth sores, loose teeth, sore throat, facial numbness or pain NECK: Denies swollen glands CARDIOVASCULAR: Denies irregular heartbeat, racing heart, chest pains, swelling of feet or legs, pain in legs with walking RESPIRATORY: Denies shortness of breath, night sweats, wheezing, sputum production, oxygen at home, coughing up blood, cough lasting > 1 month GASTROINTESTINAL: Denies constipation, bloody stool, heartburn, nausea GENITOURINARY: Denies painful urination, bloody urine, frequent urination, urgency, leaking urine, impotence MUSCULOSKELETAL: Denies joint pain, muscle pain, leg swelling INTEGUMENTARY: Denies rash, itching, new skin lesion, change in existing skin lesion, hair loss or increase, breast changes. NEUROLOGICAL: Denies headaches,difficulty walking, numbness or tingling PSYCHIATRIC: Denies depression, anxiety, recurrent bad thoughts, mood swings, hallucinations PAST MEDICAL HISTORY: 1. Hypertension 2. Asthma 3. Hypothyroidism 4. Hx of TB s/p treatment 5. RBBB, old 6. Hypomagnesemia PAST SURGICAL HISTORY: 1. Partial hysterectomy 2. Tonsillectomy 3. appendectomy FAMILY HISTORY: Father: kidney failure. at 34 y/o Mother: Healthy. at 94 y/o SOCIAL HISTORY: Denies smoking, drug use. Drinks alcohol socially. Lives alone. Pcp: Gerhard Watt, Biological Science Aide: Dr. Hassan. DNR with trial intubation per patient. ALLERGIES: Please see below. HOME MEDICATIONS: Please see below. PHYSICAL EXAMINATION: VS: Please see below CONSTITUTIONAL: No acute distress, resting comfortably, AAO x 3 EYES: PERRLA, EOM intact HENT, MOUTH: Normocephalic, atraumatic, moist mucous membranes, NECK: SUPPLE, no JVD, no lymphadenopathy, no carotid bruit CV: Regular rate and rhythm, S1S2 normal, no murmurs/rubs/gallops RESPIRATORY: Clear to auscultation bilaterally, no rales/rhonchi/wheezes GI: BS positive in 4 quadrants, soft, nontender, nondistended, no rebound or guarding, no organomegaly : Deferred MUSCULOSKELETAL: Normal ROM. No cyanosis, clubbing, swelling, joint deformity, extremity edema INTEGUMENTARY: Dry skin, Intact, no rashes, no lesions, no erythema NEUROLOGIC: Cranial Nerves II-XII are intact, no focal deficits PSYCHIATRIC: Mood and affect are normal LABORATORY DATA: Please see below MICROBIOLOGY: GI panel-pending IMAGING: CT abd/pelvis: 1. Nonspecific dilatation and wall thickening of proximal loops of jejunum in the left upper quadrant to central abdomen suggesting gastroenteritis. Caliber of the distal jejunum and ileum is normal and there are no inflammatory changes. No air-fluid levels. 2. Extensive diverticulosis of sigmoid colon somewhat less in the left colon but no definite diverticulitis or colitis, stricture nor mass. 3. Atherosclerotic calcification of the aorta without aneurysm. There is scarring of both kidneys but no mass, hydronephrosis or stone. Solid organs in the upper abdomen were unremarkable otherwise. ASSESSMENT: 80-year-old female with past medical history of hypertension, asthma, hypothyroidism, hypomagnesemia, history of TB status post treatment, history of right bundle-branch block admitted under observation status for further treatment of gastroenteritis, dehydration and weakness. PLAN: #Acute gastroenteritis -Decreased PO intake, persistent diarrhea, continued weakness, lightheadedness -CT abd/pelvis above -Multiple electrolyte deficiencies mentioned below -F/u GI panel to r/o infectious cause, daily labs -Started on IVFs at 100 cc/hr, IV ceftriaxone, flagyl. If infectious cause r/o, can start loperamide PRN #Dehydration likely 2/2 to acute gastroenteritis -Electrolytes low, poor skin turgor, decreased PO intake -IVFs, advance diet as can tolerate with diarrhea #Hypokalemia, acute -K 2.8 in ER, s/p 40m Eq. -F/u repeat BMP this evening -Replace PRN #Hypomagnesemia, chronic -Mag 1.5 -Starting home dose mag plus giving magrun x1 -F/u AM magnesium #Asthma -Stable -C/w home medication #Hypothyroidism -C/w home med #HTN -Stable -Holding diuretic but restarting benazepril #GI px. -PPI # DVT px -Enoxaparin DISPOSITION: Admitted under observation status. Plan is discharge home when medically improved. PT/OT ordered. Vital Signs Vital Signs Date Time Temp Pulse Resp B/P (MAP) Pulse Ox O2 Delivery O2 Flow Rate FiO2 07/10/20 10:00 124/59 (80) 07/10/20 09:59 74 100 07/10/20 09:50 18 07/10/20 09:10 96.9 07/10/20 09:04 Room Air Laboratory Data Labs 24H Laboratory Tests 2 07/10/20 09:16: Immature Granulocyte % (Auto) 0.5, Neutrophils (%) (Auto) 77.1H, Lymphocytes (%) (Auto) 11.0L, Monocytes (%) (Auto) 8.6H, Eosinophils (%) (Auto) 2.3, Basophils (%) (Auto) 0.5, Neutrophils # (Auto) 7.7, Lymphocytes # (Auto) 1.1L, Monocytes # (Auto) 0.9H, Eosinophils # (Auto) 0.2, Basophils # (Auto) 0.1, Nucleated Red Bl ood Cells % (auto) 0.0, Prothrombin Time 13.3, Prothromb Time International Ratio 0.99, Magnesium Level 1.5L, Total Bilirubin 0.4, Direct Bilirubin 0.2, Aspartate Amino Transf (AST/SGOT) 12, Alanine Aminotransferase (ALT/SGPT) 14, Alkaline Phosphatase 78, Total Protein 5.8L, Albumin 2.6L, Albumin/Globulin Ratio 0.8L, Lipase 322 07/10/20 09:17: Lactic Acid Level 1.5 07/10/20 09:18: POC Glucose (Misc Panel) 112H, POC Sodium (Misc Panel) 135L, POC Potassium (Misc Panel) 2.8*L, POC Chloride (Misc Panel) 108, POC Total CO2 (Misc Panel) 15.0L, POC Blood Urea Nitrogen (Misc Panel 22, POC Ionized Calcium (Misc Panel) 5.0, POC Creatinine (Misc Panel) 1.5H, POC Hematocrit (Misc Panel) 38.0 CBC/BMP Laboratory Tests 07/10/20 09:16 Home Medications Scheduled Benazepril/Hydrochlorothiazide (Benazepril-Hctz 20-12.5 mg Tab) 1 Each Tablet, 1 TAB PO DAILY Cholecalciferol (Vitamin D3) (Vitamin D3) 1,000 Unit Tablet, 1,000 UNITS PO DAILY Levothyroxine Sodium (Levothyroxine Sodium) 112 Mcg Tablet, 112 MCG PO DAILY Magnesium Chloride (Mag64) 64 Mg Tablet.dr, 128 MG PO DAILY Salmeterol/Fluticasone (Advair 250-50 Diskus) 14 Puff/Inhaler Aerp, 1 PUFF INH BID Scheduled PRN Diphenoxylate HCl/Atropine (Diphenoxylate-Atrop 2.5-0.025) 1 Each Tablet, 1 TAB PO Q4H PRN for DIARRHEA Allergies Coded Allergies: diphenhydramine (Verified Allergy, Unknown, resp distress, 11/09/19) Sulfa (Sulfonamide Antibiotics) (Verified Adverse Reaction, Unknown, "can' t tolerate them", 11/09/19) codeine (Verified Adverse Reaction, Unknown, "works the opposite way", 11/09/19) doxycycline (Verified Adverse Reaction, Unknown, stomach upset, 11/09/19) moxifloxacin (Verified Adverse Reaction, Unknown, "can't tolerate them", 11/09/19) A-FIB/CHADSVASC A-FIB History Current/History of A-Fib/PAF?: No Current PO Anticoag Therapy: No Age/Risk Factor Scoring CHADSVASC: CHADSVASC Response (Comments) Value Age Risk Factor Age >/= 75 years old 2 Gender Risk Factor Female 1 Hx of CHF No 0 Hx of HTN Yes 1 Hx of Stroke/TIA/or VTE No 0 Hx of Diabetes No 0 Hx of Vascular Disease No 0 Total 4 Treatment Treatment ordered: Other Other anticoagulant ordered: enoxaparin Carlie Noyola MD Jul 10, 2020 14:20
[2020-07-10 14:41] LABS: ALBUMIN 2.5 GM/DL (3.2-5.2); BILIRUBIN,TOTAL 0.4 MG/DL (0.2-1.0); CALCIUM LEVEL 8.5 MG/DL (8.8-10.2); CREATININE FOR GFR 1.37 MG/DL (0.55-1.30); GLOMERULAR FILTRATION RATE 39.5 (>32); TOTAL PROTEIN 6.1 GM/DL (6.4-8.2)
[2020-07-10] MEDS ORDERED: cefTRIAXone SOD 1 GM in D5W MINI-BAG PLUS 50 ML IV SCH (15:00)
[2020-07-10 17:00] VITALS: BP 140/64
[2020-07-10] MEDS: metroNIDAZOLE 500 MG in IV 1 EA IV SCH (18:06)
[2020-07-10] MEDS: VITAMIN D 1,000 INTERNATIONAL UNITS TABLET PO SCH (18:06)
[2020-07-10] MEDS: cefTRIAXone SOD 1 GM in D5W MINI-BAG PLUS 50 ML IV SCH (19:33)
[2020-07-10 22:00] VITALS: BP 111/55
[2020-07-10] MEDS ORDERED: DICYCLOMINE 10 MG CAP PO PRN (22:00)
[2020-07-11] MEDS: metroNIDAZOLE 500 MG in IV 1 EA IV SCH ×3 (02:50→18:16)
[2020-07-11] MEDS ORDERED: ACETAMINOPHEN TAB 650MG DOSE (2X325MG) PO PRN (03:15)
[2020-07-11] MEDS: LEVOTHYROXINE 112MCG TABLET (0.112MG) PO SCH (05:41)
[2020-07-11 06:00] VITALS: BP 112/98
[2020-07-11] MEDS: NS 1,000 ML IV SCH ×2 (06:30→09:14)
[2020-07-11] MEDS: DICYCLOMINE 10 MG CAP PO SCH ×3 (06:30→17:38)
[2020-07-11 06:57] LABS: HEMATOCRIT 32.9 % (36.0-47.0); MEAN CORPUSCULAR HGB CONC 33.4 g/dl (32.0-36.5); MEAN CORPUSCULAR VOLUME 101.5 fl (80.0-96.0); PLATELET COUNT, AUTOMATED 324 10^3/uL (150-450); RED BLOOD COUNT 3.24 10^6/uL (4.00-5.40); WHITE BLOOD COUNT 9.8 10^3/uL (4.0-10.0)
[2020-07-11 07:39] LABS: ALBUMIN 2.1 GM/DL (3.2-5.2); BILIRUBIN,TOTAL 0.2 MG/DL (0.2-1.0); CALCIUM LEVEL 8.4 MG/DL (8.8-10.2); CREATININE FOR GFR 1.23 MG/DL (0.55-1.30); GLOMERULAR FILTRATION RATE 44.7 (>32); TOTAL PROTEIN 5.3 GM/DL (6.4-8.2)
[2020-07-11] MEDS: ADVAIR HFA 115/21MCG INHALER INH SCH ×2 (07:43→20:00)
[2020-07-11] MEDS: ENOXAPARIN 30MG/0.3ML SYRINGE (J1650 PER 10MG) SC SCH (09:12)
[2020-07-11] MEDS: BENAZEPRIL 20 MG TAB PO SCH (09:13)
[2020-07-11] MEDS: OMEPRAZOLE 20 MG CAP PO SCH (09:13)
[2020-07-11] MEDS: MAGNESIUM CHLORIDE 64 MG TABCR (SLO MAG) PO SCH (09:13)
[2020-07-11] MEDS: VITAMIN D 1,000 INTERNATIONAL UNITS TABLET PO SCH (09:14)
[2020-07-11] MEDS ORDERED: ONDANSETRON 4 MG TAB PO PRN (11:00)
[2020-07-11] MEDS ORDERED: ONDANSETRON 4MG/2ML VIAL IV PRN (12:00)
[2020-07-11 14:00] VITALS: BP 128/67
[2020-07-11] MEDS: cefTRIAXone SOD 1 GM in D5W MINI-BAG PLUS 50 ML IV SCH (21:08)
[2020-07-11 22:00] VITALS: BP 111/52
[2020-07-12] MEDS: DICYCLOMINE 10 MG CAP PO SCH ×3 (01:00→12:29)
[2020-07-12] MEDS: metroNIDAZOLE 500 MG in IV 1 EA IV SCH ×2 (01:00→10:07)
[2020-07-12] MEDS: NS 1,000 ML IV SCH ×2 (02:27→07:40)
[2020-07-12] MEDS: LEVOTHYROXINE 112MCG TABLET (0.112MG) PO SCH (05:30)
[2020-07-12 05:58] LABS: HEMATOCRIT 36.7 % (36.0-47.0); HEMOGLOBIN 11.7 g/dl (12.0-15.5); MEAN CORPUSCULAR HGB CONC 31.9 g/dl (32.0-36.5); MEAN CORPUSCULAR VOLUME 106.7 fl (80.0-96.0); PLATELET COUNT, AUTOMATED 251 10^3/uL (150-450); RED BLOOD COUNT 3.44 10^6/uL (4.00-5.40); WHITE BLOOD COUNT 7.8 10^3/uL (4.0-10.0)
[2020-07-12 06:00] VITALS: BP 112/53
[2020-07-12 06:19] LABS: ALBUMIN 2.2 GM/DL (3.2-5.2); BILIRUBIN,TOTAL 0.3 MG/DL (0.2-1.0); CALCIUM LEVEL 8.4 MG/DL (8.8-10.2); GLOMERULAR FILTRATION RATE 56.8 (>32); POTASSIUM SERUM 3.6 MEQ/L (3.5-5.1); TOTAL PROTEIN 4.9 GM/DL (6.4-8.2)
--- NOTE | 2020-07-12 07:42 | IPNPDOC ---
Date Seen The patient was seen on 07/12/20. Progress Note SUBJECTIVE: Patient is a -year-old [RACE] [GENDER] with OBJECTIVE PHYSICAL EXAMINATION: VITAL SIGNS: Please see below. GENERAL: HEENT: CARDIOVASCULAR: . RESPIRATORY: . ABDOMINAL: EXTREMITIES: NEUROLOGICAL: PSYCHOLOGICAL: LABORATORY DATA, IMAGING STUDIES, MICROBIOLOGY: Please see below. Echocardiogram: . DVT prophylaxis ordered?: ASSESSMENT AND PLAN: This is a -year-old [RACE] [GENDER] with . PROBLEMS: 1. : . 2. : . 3. : . DISPOSITION: . [facility]s/[facility]&O Vital Signs Date Time Temp Pulse Resp B/P (MAP) Pulse Ox O2 Delivery O2 Flow Rate FiO2 07/12/20 06:00 98.6 63 18 112/53 (72) 99 Room Air I&O- Last 24 Hours up to 6 AM 07/12/20 06:00 Intake Total 2370 ml Output Total 1300 ml Balance 1070 ml Laboratory Data 24H LABS Laboratory Tests 2 07/12/20 05:45: Nucleated Red Blood Cells % (auto) 0.4H, Anion Gap 12, Glomerular Filtration Rate 56.8, Calcium Level 8.4L, Total Bilirubin 0.3, Aspartate Amino Transf (AST/SGOT) 16, Alanine Aminotransferase (ALT/SGPT) 11L, Alkaline Phosphatase 68, Total Protein 4.9L, Albumin 2.2L, Albumin/Globulin Ratio 0.8L CBC/BMP Laboratory Tests 07/12/20 05:45 Microbiology Microbiology 07/11/20 Campylobacter (PCR), Received Pending 07/11/20 Clostridium difficile Toxin A&B PCR, Received Pending 07/11/20 Plesiomonas shigelloides (PCR), Received Pending 07/11/20 Salmonella (PCR)(VICTORINO), Received Pending 07/11/20 Vibrio Species (PCR), Received Pending 07/11/20 Vibrio Cholerae (PCR), Received Pending 07/11/20 Yersinia enterocolitica (PCR), Received Pending 07/11/20 Enteroaggregative E. coli (PCR), Received Pending 07/11/20 Enteropathogenic E. coli (PCR), Received Pending 07/11/20 Enterotoxigenic E. coli (PCR), Received Pending 07/11/20 E. coli Shiga-like Toxin (PCR), Received Pending 07/11/20 Escherichia coli 0157 (PCR), Received Pending 07/11/20 Enteroinvasive E. coli/Shigella PCR, Received Pending 07/11/20 Cryptosporidium (PCR), Received Pending 07/11/20 Cyclospora cayetanensis (PCR), Received Pending 07/11/20 Entamoeba histolytica (PCR), Received Pending 07/11/20 Giardia lamblia (PCR), Received Pending 07/11/20 Adenovirus Type F 40/41 (PCR), Received Pending 07/11/20 Astrovirus (PCR), Received Pending 07/11/20 Norovirus GI/GII (PCR), Received Pending 07/11/20 Rotavirus A (PCR), Received Pending 07/11/20 Sapovirus I/II/IV/V (PCR), Received Pending JANINA MAHAN MD Jul 12, 2020 07:42
[2020-07-12] MEDS: ADVAIR HFA 115/21MCG INHALER INH SCH (07:58)
[2020-07-12] MEDS ORDERED: FLUBLOK(EGG FREE)(QUAD)INFLUENZA VACC 0.5ML SYRINGE 18YRS & OLDER IM ONE (09:00)
[2020-07-12] MEDS: ENOXAPARIN 30MG/0.3ML SYRINGE (J1650 PER 10MG) SC SCH (10:06)
[2020-07-12] MEDS: MAGNESIUM CHLORIDE 64 MG TABCR (SLO MAG) PO SCH (10:07)
[2020-07-12] MEDS: OMEPRAZOLE 20 MG CAP PO SCH (10:08)
[2020-07-12] MEDS: VITAMIN D 1,000 INTERNATIONAL UNITS TABLET PO SCH (10:08)
[2020-07-12 10:14] VITALS: BP 135/65
[2020-07-12] MEDS: BENAZEPRIL 20 MG TAB PO SCH (10:14)
[2020-07-12 10:26] LABS: THYROID STIMULATING HORMONE 0.258 uIU/ML (0.358-3.740)
[2020-07-12] MEDS ORDERED: AUGM875T28 PO (11:27)
[2020-07-12] MEDS ORDERED: DICY1CAP8 PO (11:27)
--- NOTE | 2020-07-12 11:28 | DS.PDOC ---
Discharge Summary General Date of Admission Jul 10, 2020 at 08:45 Date of Discharge 07/12/20 Discharge Summary PROCEDURES PERFORMED DURING STAY: [None]. ADMITTING DIAGNOSES: 1. . DISCHARGE DIAGNOSES: 1. . COMPLICATIONS/CHIEF COMPLAINT: Gastroenteritis. HISTORY OF PRESENT ILLNESS: . HOSPITAL COURSE: . DISCHARGE MEDICATIONS: Please see below. ALLERGIES: Please see below. PHYSICAL EXAMINATION ON DISCHARGE: VITAL SIGNS: Please see below. GENERAL: HEENT: NECK: CARDIOVASCULAR EXAMINATION: RESPIRATORY EXAMINATION: ABDOMINAL EXAMINATION: EXTREMITIES: SKIN: NEUROLOGICAL EXAMINATION: PSYCHIATRIC EXAMINATION: LABORATORY DATA: Please see below. IMAGING: PROGNOSIS: ACTIVITY: [As tolerated]. DIET: DISCHARGE PLAN: DISPOSITION: . DISCHARGE INSTRUCTIONS: 1. . ITEMS TO FOLLOWUP ON ON OUTPATIENT: 1. . DISCHARGE CONDITION: [Stable]. TIME SPENT ON DISCHARGE: Greater than minutes. Vital Signs/I&Os Vital Signs Date Time Temp Pulse Resp B/P (MAP) Pulse Ox O2 Delivery O2 Flow Rate FiO2 07/12/20 10:14 135/65 07/12/20 06:00 98.6 63 18 99 Room Air I&O- Last 24 Hours up to 6 AM 07/12/20 06:00 Intake Total 2370 ml Output Total 1300 ml Balance 1070 ml Laboratory Data Labs 24H Laboratory Tests 2 07/12/20 05:45: Nucleated Red Blood Cells % (auto) 0.4H, Anion Gap 12, Glomerular Filtration Rate 56.8, Calcium Level 8.4L, Total Bilirubin 0.3, Aspartate Amino Transf (AST/SGOT) 16, Alanine Aminotransferase (ALT/SGPT) 11L, Alkaline Phosphatase 68, Total Protein 4.9L, Albumin 2.2L, Albumin/Globulin Ratio 0.8L, Thyroid Stimul ating Hormone (TSH) 0.258L CBC/BMP Laboratory Tests 07/12/20 05:45 Microbiology Microbiology 07/11/20 Campylobacter (PCR), Received Pending 07/11/20 Clostridium difficile Toxin A&B PCR, Received Pending 07/11/20 Plesiomonas shigelloides (PCR), Received Pending 07/11/20 Salmonella (PCR)(VICTORINO), Received Pending 07/11/20 Vibrio Species (PCR), Received Pending 07/11/20 Vibrio Cholerae (PCR), Received Pending 07/11/20 Yersinia enterocolitica (PCR), Received Pending 07/11/20 Enteroaggregative E. coli (PCR), Received Pending 07/11/20 Enteropathogenic E. coli (PCR), Received Pending 07/11/20 Enterotoxigenic E. coli (PCR), Received Pending 07/11/20 E. coli Shiga-like Toxin (PCR), Received Pending 07/11/20 Escherichia coli 0157 (PCR), Received Pending 07/11/20 Enteroinvasive E. coli/Shigella PCR, Received Pending 07/11/20 Cryptosporidium (PCR), Received Pending 07/11/20 Cyclospora cayetanensis (PCR), Received Pending 07/11/20 Entamoeba histolytica (PCR), Received Pending 07/11/20 Giardia lamblia (PCR), Received Pending 07/11/20 Adenovirus Type F 40/41 (PCR), Received Pending 07/11/20 Astrovirus (PCR), Received Pending 07/11/20 Norovirus GI/GII (PCR), Received Pending 07/11/20 Rotavirus A (PCR), Received Pending 07/11/20 Sapovirus I/II/IV/V (PCR), Received Pending Discharge Medications Scheduled Amoxicillin/Potassium Clav (Augmentin 875-125 Tablet) 1 Each Tablet, 1 TAB PO BID Benazepril/Hydrochlorothiazide (Benazepril-Hctz 20-12.5 mg Tab) 1 Each Tablet, 1 TAB PO DAILY, (Reported) Cholecalciferol (Vitamin D3) (Vitamin D3) 1,000 Unit Tablet, 1,000 UNITS PO DAILY, (Reported) Levothyroxine Sodium (Levothyroxine Sodium) 112 Mcg Tablet, 112 MCG PO DAILY, (Reported) Magnesium Chloride (Mag64) 64 Mg Tablet.dr, 128 MG PO DAILY, (Reported) Salmeterol/Fluticasone (Advair 250-50 Diskus) 14 Puff/Inhaler Aerp, 1 PUFF INH BID, (Reported) Scheduled PRN Dicyclomine HCl (Dicyclomine HCl) 10 Mg Capsule, 10 MG PO Q12HP PRN for ABDOMINAL PAIN Diphenoxylate HCl/Atropine (Diphenoxylate-Atrop 2.5-0.025) 1 Each Tablet, 1 TAB PO Q4H PRN for DIARRHEA, (Reported) Allergies Coded Allergies: diphenhydramine (Verified Allergy, Unknown, resp distress, 11/09/19) Sulfa (Sulfonamide Antibiotics) (Verified Adverse Reaction, Unknown, "can't tolerate them", 11/09/19) codeine (Verified Adverse Reaction, Unknown, "works the opposite way", 11/09/19) doxycycline (Verified Adverse Reaction, Unknown, stomach upset, 11/09/19) moxifloxacin (Verified Adverse Reaction, Unknown, "can't tolerate them", 11/09/19) JANINA MAHAN MD Jul 12, 2020 11:28
[2020-07-12 12:03] LABS: FREE T4 1.45 NG/DL (0.76-1.46); MAGNESIUM LEVEL 1.9 MG/DL (1.8-2.4)
[2020-07-12 12:15] LABS: CLOSTRIDIUM DIFFICILE PCR NEGATIVE (NEGATIVE)
== END 2020-07-12 13:30 | disposition home or self-care (01) ==
LOC: M ED 08:44 → M ED INP 08:45 → ENRESERV 13:44 → M MSPAV 16:55
PROVIDERS: ADMIT Internal Medicine; ATTEND Family Medicine
DX: K52.9 Noninfective gastroenteritis and colitis, unspecified (principal); N17.9 Acute kidney failure, unspecified; E86.0 Dehydration; I10 Essential (primary) hypertension; E87.6 Hypokalemia; E83.42 Hypomagnesemia; E03.9 Hypothyroidism, unspecified; Z88.8 Allergy status to other drugs, medicaments and biological substances; Z88.5 Allergy status to narcotic agent; Z88.2 Allergy status to sulfonamides; Z79.899 Other long term (current) drug therapy
CPT/HCPCS: 36415; 74177; 80047; 80053; 83605; 83690; 83735; 84439; 84443; 85025; 85027; 85610; 87493; 87507; 90682; 93005; 93041; 94640; 96361; 96365; 96366; 96372; 96375; 96376; 97112; 97161; 97165; 99285; G0008; G0378; J0696; J1650; J1885; J2270; J2405; J2765; J3475; Q9967; U0002

== ENCOUNTER → 2020-10-10 | Outpatient (CLI) | payer SELFPAY ==
[~2020-10-10] MED LIST changes: +AUGM875T28 PO; +BENA20TA6 PO; +D31000TA2 PO; +DICY1CAP8 PO; +DIPH2.5T14 PO; +MAGN64TASA PO
== END ==
LOC: M LABSMTC 12:56
PROVIDERS: ATTEND Pediatrics
DX: Z20.822 Contact with and (suspected) exposure to COVID-19 (principal)

== ENCOUNTER 2020-10-24 12:47 | Inpatient (IN) | payer MEDICARE, BC, OTHER ==
[~2020-10-24] VITALS: Ht 154.9 cm; Wt 62.3 kg
--- OUTSIDE RECORDS SUMMARY | 2020-10-24 13:39 | CCD | Continuity of Care Document ---
Author Author Rosalee WATT [facility] Organization Unknown Address [address] [facility] [address] [place] [address] Phone [phone] Problems Active Problems Provider Date Asthma without status asthmaticus Evan Watt RPA Ons et: 05/02/2009 Hypothyroidism Evan Watt RPA Onset: 05/02/2009 Anemia Evan Watt RPA Onset: 05/03/2009 Hyperlipidemia Evan Watt RPA Onset: 05/03/2009 Vitamin D deficiency Evan Watt RPA Onset: 0 Sarcoidosis Evan Watt RPA Onset: 01/20/2012 Note: By history von Willebrand disorder Evan Watt RPA Onset: 2011 Impaired renal function disorder Evan Watt RPA Onse t: 12/13/2013 Elevated levels of transaminase & lactic acid dehydrog enase Evan Watt RPA Onset: 12/13/2013 History of polyp of colon Evan Watt RPA Onset: 01/30 Note: 02/11/14 Colonoscopy and Egd-Dr. Mary oscar Hyperparathyroidism Evan Watt RPA Onset: 07/08/2014 Essential hypertension Evan Watt RPA Onset: 015 Proteinuria Evan Watt RPA Onset: 06/23/2015 Hypocalcemia Evan Watt RPA Onset: 01/28/2017 Note: [facility] ER. Insomnia Evan Watt RPA Onset: 03/06/2017 Disorder of magnesium metabolism Evan Watt RPA Onse t: 12/06/2019 Chronic kidney disease stage 3 Evan Watt RPA Onset: 12/06/2019 Hypokalemia Evan Watt RPA Onset: 07/10/2020 Hypomagnesemia ShukriEvan, RPA Onset: 07/10/2020 Social History Type Date Description Comments Sex Unknown ETOH Use Occasionally consumes wine Tobacco Use Start: Unknown Patient has never smoked Allergies, Adverse Reactions, Alerts Active Allergies Reaction Severity Comments Date Benadryl 06/12/2005 Sulfa Drugs 06/12/2005 Penicillin 06/12/2005 Levaquin [employer] and GI effects 0 Pneumovax Contact dermatitis 1 Lexapro Severe 03/08/2015 Escitalopram Severe 03/08/2015 Medications Active Medications SIG Qnty Indications Ordering Provide r Date Lotensin 20mg Tablets 1 by mouth every day (change 07/24/20) 30tabs Min Mcclelland D.O., FAAFP 1 09/23/2019 Potassium Chloride Nany ER 10Meq Tablets ER 1 by mouth every other day 30tabs Min kim D.O., FAAFP 07/19/2020 Lomotil 2.5-0.025mg Tablets 1-2 by mouth four times a day as needed diarrhea (istop: [id number]) 56tabs Min Mcclelland D.O., FAAFP 07/07/2020 Cyclobenzaprine HCL 10mg Tablets take one tablet by mouth every night at bedtime 30tabs Min Mcclelland D.O., FAAFP 06/07/2020 16.2mg/5ML Elixir 1 tsp po bid 120ml Min Mcclelland D.O., FAAFP 06/07/2020 Diclofenac Sodium 1% Gel apply 3 gm to affected area four times a day (hands) 100gm Min Mcclelland D.O., FAAFP 03/21/[address] 1 by mouth every day 90caps Min Mcclelland D.O., FAAFP 01/2020 Proair HFA 108(90Base) mcg/Act Aer osol inhale 2 puffs by mouth every 4 hours as needed for shortness of breath 8.5units J45.909 Min Mcclelland D.O., FAAFP 09/06/2019 Advair Diskus 250-50mcg/Dose Aeros ol inhale one puff by mouth twice a day 180units Min Mcclelland D.O., [facility] WITH [facility] 09/03/2019 Albuterol Sulfate (2 .5mg/3ML) 0.083% Nebulizer 1 vial via nebulizer every 4 hours as needed 100units Min Mcclelland D.O., [facility] 07/01/2019 Zyrtec Allergy 10mg Tablets one tab nightly x 30 30tabs [facility] Nasonex 50mcg/Act Suspension 2 sprays both nares every day - nose over toes! 17gm [facility]im D[facility] 03/27/2018 Levothyroxine Sodium 112mcg Tablet s 1 by mouth every day (replaces the 125mcg dose 01/13/18) 90tabs Min Mcclelland D.O., [facility] 01/13/2018 Vitamin D 2000Unit Capsules 1 by mouth every day Unknown Mag64 64mg Tablets DR 1 by [facility] qd Unknown History Medications Ondansetron 4mg Tablets Dispers dissolve 1 tab on the tongue every 8 hours as needed for nausea 90tabs Min Mcclelland D.O., FAA 05/31/2020 - 06/30/2020 Esgic 50-325-40mg Tablets 1-2 tabs by mouth three times a day for as needed pain 30tabs Min Mcclelland D.O., FAA 05/31/2020 - 06/08/2020 Medrol 4mg TBPK medrol dose pack, standard tapering dose 21units Min Mcclelland D.O., [facility] - 02/23/2020 Medications Administered in Office Medication SIG Qnty Indications Ordering Provider Date Injection (SC)/(Im) Injection Evan Watt, RPA 07/05/2019 Injection (SC)/(Im) Injection Evan Watt, RPA 10/30/2018 Injection (SC)/(Im) Injection Richard Watters RPA 06/23/2018 Injection (SC)/(Im) Injection Richard Watters RPA 03/27/2018 Injection (SC)/(Im) Injection Evan Watt, RPA 10/15/2017 Injection (SC)/(Im) Injection DAVION De [place] 06/02/2017 Injection (SC)/(Im) Injection Evan Watt, RPA 05/01/2017 Injection (SC)/(Im) Injection Evan Watt, RPA 01/09/2017 Injection (SC)/(Im) Injection Min Mcclelland D.O., [facility] 10/22/2016 Injection (SC)/(Im) Injection Evan Watt, RPA 02/29/2016 Injection (SC)/(Im) Injection Evan Watt, RPA 06/23/2015 Injection (SC)/(Im) Injection Evan Watt, RPA 06/26/2010 Injection (SC)/(Im) Injection Evan Watt, RPA 01/26/2010 Injection (SC)/(Im) Injection Evan Watt, RPA 06/20/2009 Injection Subcutaneous Or Intramuscular Injection Evan Watt, RPA 01/14 Immunizations CPT Code Status Date Vaccine Lot # [id number] Given 12/25/2010 Pneumococcal Immunization 12 [id number] Refused 07/29/2016 Influenza Virus Vaccine, Quadrivalent, Slit Virus, Im Use 3Y & Up Vital Signs Date Vital Result Comment 07/24/2020 2:04pm BP Systolic 92 mmHg BP Diastolic 54 mmHg Body Temperature 97.1 F Heart Rate 87 /min Respiratory Rate 16 /min Height 61 inches 5'1" Weight 142.00 lb [place] Body Weight 105 lb BMI (Body Mass Index) 26.8 kg/m2 O2 % BldC Oximetry 98 % 07/17/2020 1:30pm BP Systolic 102 mmHg BP Diastolic 64 mmHg Body Temperature 97.8 F Heart Rate 103 /min Respiratory Rate 16 /min Height 61 inches 5'1" Weight 144.00 lb [place] Body Weight 105 lb BMI (Body Mass Index) 27.2 kg/m2 O2 % BldC Oximetry 99 % Results Test Acquired Date Facility Test Result H/L Range Note Laboratory test finding 07/24/2020 [facility] [place] Magnesium 1.8 mg/dL 1.6-2.3 CMP 07/24/2020 [facility] Glu 118 mg/dL High 70 - 110 1 BUN 25 mg/dL High 8 - 23 Creat 1.6 mg/dL High 0.5 - 1.0 BUN/Creatinine Ratio 15.0 Calc Na 137 mmol/L 136 - 145 K 4.4 mmol/L 3.5 - 5.1 CL 111.3 mmol/L High 98.0 - 107.0 Co2 12.5 mmol/L Low 22.0 - 29.0 CA 9.7 mg/dL 8.6 - 10.2 TP 5.8 g/dL Low 6.6 - 8.7 Alb 3.6 g/dL 3.4 - 4.8 A/G Ratio 1.6 Calc Globulin 2.2 Calc Alp 69.7 U/L 35 - 129 Alt (SGPT) 11 U/L 0 - 41 Ast (Sgot) 18 U/L 0 - 40 Tbili 0.31 mg/dL 0.0 - 1.2 Osmolality-Calculated 279.5 Calc Anion Gap 18 mmol/L Comment VERY SHORT SAMPL <SEE NOTE> High 2 eGFR 35 # Calc 3 eGFR Non-Afr. Brazilian 30 # Calc 4 CMP 07/17/2020 [facility] Glu 95 mg/dL 70 - 110 BUN 10 mg/dL 8 - 23 Creat 1.2 mg/dL High 0.5 - 1.0 BUN/Creatinine Ratio 8.5 CALC Na 136 mmol/L 136 - 145 K 3.3 mmol/L Low 3.5 - 5.1 CL 108.1 mmol/L High 98.0 - 107.0 Co2 11.7 mmol/L Low 22.0 - 29.0 CA 9.5 mg/dL 8.6 - 10.2 TP 5.5 g/dL Low 6.6 - 8.7 Alb 3.5 g/dL 3.4 - 4.8 A/G Ratio 1.7 CALC Globulin 2.1 CALC Alp 81.5 U/L 35 - 129 Alt (SGPT) 15 U/L 0 - 41 Ast (Sgot) 23 U/L 0 - 40 Tbili 0.24 mg/dL 0.0 - 1.2 Osmolality-Calculated 271.1 CALC Anion Gap 20 mmol/L eGFR 49 # Calc 5 eGFR Non-Afr. Brazilian 43 # Calc 6 Laboratory test finding 07/17/2020 [facility] [place] Magnesium 1.4 mg/dL Low 1.6-2.3 Istat Chem8+ Panel 07/10/2020 [facility] (I nterface) [phone] iSTAT HCT 38.0 % Normal 38.0-51.0 iSTAT Glucose 112 mg/dL High 70-105 iSTAT Sodium 135 mEq/L Low 136-145 iSTAT Potassium 2.8 mEq/L Critical low 3.5-5.1 iSTAT CA++ 5.0 mg/dL Normal 4.5-5.3 iSTAT Chloride 108 mEq/L Normal 98-109 iSTAT Co2 15.0 MM/L Low 23.0-27.0 iSTAT BUN 22 mg/dL Normal 8-26 iSTAT Creatinine 1.5 mg/dL High 0.6-1.3 Laboratory test finding 07/10/2020 [facility] (Interface) [phone] Lactic Acid Sepsis Protocol 1.5 mmol/L Normal 0.4- 2.0 7 CBC With Differential 07/10/2020 [facility] (Interface) [phone] White Blood Count 10.0 10 Normal 4.0-10.0 Red Blood Count 3.52 10 Low 4.00-5.40 Hemoglobin 11.9 g/dL Low 12.0-15.5 Hematocrit 35.6 % Low 36.0-47.0 Mean Corpuscular Volume 101.1 fl High 80.0-96.0 Mean Corpuscular Hemoglobin 33.8 pg High 27.0-33.0 Mean Corpuscular HGB Conc 33.4 g/dL Normal 32.0-36.5 Red Cell Distribution Width 12.5 % Normal 11.5-14.5 Platelet Count, Automated 356 10 Normal 150-450 Neutrophils % 77.1 % High 36.0-66.0 Lymph % 11.0 % Low 24.0-44.0 [place] % 8.6 % High 0.0-5.0 Eos % 2.3 % Normal 0.0-3.0 Baso % 0.5 % Normal 0.0-1.0 Immature Granulocyte % 0.5 % Normal 0-3.0 Nucleated Red Blood Cell % 0.0 % Normal 0-0 Neutrophils # 7.7 10 Normal 1.5-8.5 Lymph # 1.1 10 Low 1.5-5.0 [place] # 0.9 10 High 0.0-0.8 Eos # 0.2 10 Normal 0.0-0.5 Baso # 0.1 10 Normal 0.0-0.2 Prothrombin Time/Inr 07/10/2020 [facility] ( Interface) [phone] Prothrombin Time 13.3 seconds Normal 12.5-14.3 Inr 0.99 Normal 8 Liver Profile 07/10/2020 [facility] (I nterface) [phone] Ast/Sgot 12 U/L Normal 7-37 Alt/SGPT 14 U/L Normal 12-78 Alkaline Phosphatase 78 U/L Normal 45-117 Bilirubin,Total 0.4 mg/dL Normal 0.2-1.0 Bilirubin,Direct 0.2 mg/dL Normal 0.0-0.2 Total Protein 5.8 GM/DL Low 6.4-8.2 Albumin 2.6 GM/DL Low 3.2-5.2 Albumin/Globulin Ratio 0.8 Low 1.2-2.2 Laboratory test finding 07/10/2020 [facility] l (Interface) [phone] Magnesium Level 1.5 mg/dL Low 1.8-2.4 Lipase 322 U/L Normal 73-393 Laboratory test finding 03/21/2020 [facility] TSH 0.718 ulU/mL 0.60 - 4.8 1 CHRONIC KIDNEY DISEASE STAGI NG PER NKF: MALE GFR INTERPRETATION: 20-49 YRS: >60 mL/min Normal 50-59 YRS: >56 mL/min Normal 60-69 YRS: >49 mL/min Normal 70-79 YRS: >42 mL/min Normal 80 and above >35 mL/min Normal FEMALE GRF INTERPRETATION: 20-39 YRS: >60 mL/min Normal 40-49 YRS: >58 mL/min Normal 50-59 YRS: >51 mL/min Normal 60-69 YRS: >45 mL/min Normal 70-79 YRS: >39 mL/min Normal 80 and above >32 mL/min Normal 2 VERY SHORT SAMPLE 3 CKD-EPI 4 CKD-EPI 5 CKD-EPI 6 CKD-EPI 7 Y/N query for Sepsis Lactate Rule: Y 8 THERAPUTIC HUMAN INR VALUES INDICATIONS NORMAL RANGES PROPHYLAXIS/TREATMENT OF: VENOUS THROMBOSIS 2.0-3.0 PULMONARY EMBOLISM 2.0-3.0 PREVENTION OF SYSTEMIC EMBOLISM FROM: TISSUE HEART VALVES 2.0-3.0 ACUTE MYOCARDIAL INFARCTION 2.0-3.0 VALVULAR HEART DISEASE 2.0-3.0 ATRIAL FIBRILLATION 2.0-3.0 MECHANICAL VALVES(HIGH RISK) 2.5-3.5 RECURRENT MYOCARDIAL INFARCTION 2.5-3.5 Procedures Description No Information Available Medical Devices Description No Information Available Encounters Type Date Location Provider Dx Diagnosis Office Visit 07/24/2020 2:00p [facility] Evan Watt, RP A E87.6 Hypokalemia E83.42 Hypomagnesemia I95.2 Hypotension due to drugs Office Visit 07/17/2020 1:30p [facility] Evan Watt, RP A R19.7 Diarrhea, unspecified R11.0 Nausea E87.6 Hypokalemia E83.42 Hypomagnesemia Office Visit 07/07/2020 3:00p [facility] Evan Watt, RP A R19.7 Diarrhea, unspecified Office Visit 05/31/2020 2:20p [facility] Evan Watt, RP A M54.5 Low back pain K58.0 Irritable bowel syndrome wit h diarrhea R11.0 Nausea R10.9 Unspecified abdominal pain R14.0 Abdominal distension (gaseou s) Office Visit 03/21/2020 3:00p [facility] Evan Watt, RP A I10 Essential (primary) hypertension J45.909 Unspecified asthma, uncompli cated G47.00 Insomnia, unspecified D86.0 Sarcoidosis of lung D68.0 Von Willebrand's disease E83.42 Hypomagnesemia N18.3 Chronic kidney disease, stag e 3 (moderate) D64.9 Anemia, unspecified E78.5 Hyperlipidemia, unspecified E55.9 Vitamin D deficiency, unspec ified R53.83 Other fatigue Assessments Date Code Description Provider 07/24/2020 E87.6 Hypokalemia Evan Watt, RPA 07/24/2020 E83.42 Hypomagnesemia Evan Watt, RPA 07/24/2020 I95.2 Hypotension due to drugs Evan Watt, RPA 07/17/2020 R19.7 Diarrhea, unspecified Shukri, Mi chael D, RPA 07/17/2020 R11.0 Nausea Evan Watt, RPA 07/17/2020 E87.6 Hypokalemia Evan Watt, RPA 07/17/2020 E83.42 Hypomagnesemia Evan Watt, RPA 07/07/2020 R19.7 Diarrhea, unspecified Shira Watt, RPA 05/31/2020 M54.5 Low back pain Evan Watt, RPA 05/31/2020 K58.0 Irritable bowel syndrome with di arrhea Evan Watt, RPA 05/31/2020 R11.0 Nausea Evan Watt, RPA 05/31/2020 R10.9 Unspecified abdominal pain Evan Sifuentes, RPA 05/31/2020 R14.0 Abdominal distension (gaseous) H Evan anna, RPA 03/21/2020 I10 Essential (primary) hypertension Evan Watt, RPA 03/21/2020 J45.909 Unspecified asthma, uncomplicate d Evan Watt, RPA 03/21/2020 G47.00 Insomnia, unspecified Shria Watt, RPA 03/21/2020 D86.0 Sarcoidosis of lung Manny Watt, RPA 03/21/2020 D68.0 Von Willebrand's disease Evan Watt, RPA 03/21/2020 E83.42 Hypomagnesemia Evan Watt, RPA 03/21/2020 N18.3 Chronic kidney disease, stage 3 (moderate) Evan Watt, RPA 03/21/2020 D64.9 Anemia, unspecified Manny Watt, RPA 03/21/2020 E78.5 Hyperlipidemia, unspecified Evan Smith, RPA 03/21/2020 E55.9 Vitamin D deficiency, unspecifie d Evan Watt, RPA 03/21/2020 R53.83 Other fatigue Evan Watt, RPA Plan of Treatment No Information Available Functional Status Description No Information Available Mental Status Description No Information Available Referrals Refer to Reason for Referral Status Appt Date [facility] Orthopedics Low back pain--see xray and note. Sen t [address] [address] [phone]
--- OUTSIDE RECORDS SUMMARY | 2020-10-24 13:40 | CCD ---
Author Author [facility] Organization [facility] Address Unknown Phone Unavailable Care Team Providers Care Crane Man Name Role Phone Geraldo Watt Unavailable Unavailable Geraldo Watt Unavailable Unavailable Geraldo Watt Unavailable Unavailable Geraldo Watt Unavailable Unavailable Geraldo Watt PA Unavailable Unavailable Geraldo Watt PA Unavailable Unavailable ShukriGeraldo PA Unavailable Unavailable Geraldo Watt PA Unavailable Unavailable Geraldo Watt PA Unavailable Unavailable Geraldo Watt PA Unavailable Unavailable Geraldo Watt PA Unavailable Unavailable Geraldo Watt PA Unavailable Unavailable Shukri, Geraldo Gordon PA Unavailable Unavailable Shukri, Geraldo Gordon PA Unavailable Unavailable Shukri, Geraldo Gordon PA Unavailable Unavailable Geraldo Watt PA Unavailable Unavailable Geraldo Watt PA Unavailable Unavailable Geraldo Watt PA Unavailable Unavailable Geraldo Watt PA Unavailable Unavailable Geraldo Watt PA Unavailable Unavailable Shukri, D Evan PA Unavailable Unavailable Shukri, D Evan PA Unavailable Unavailable Shukri, D Evan PA Unavailable Unavailable Shukri, D Evan PA Unavailable Unavailable Shukri, D Evan PA Unavailable Unavailable Shukri, D Evan PA Unavailable Unavailable Shukri, D Evan PA Unavailable Unavailable Shukri, D Evan PA Unavailable Unavailable Shukri, D Evan PA Unavailable Unavailable Shukri, D Evan PA Unavailable Unavailable Shukri, D Evan PA Unavailable Unavailable Shukri, D Evan PA Unavailable Unavailable Shukri, D Evan PA Unavailable Unavailable Shukri, D Evan PA Unavailable Unavailable Shukri, D Evan PA Unavailable Unavailable Shukri, D Evan PA Unavailable Unavailable Shukri, D Evan PA Unavailable Unavailable Shukri, D Evan PA Unavailable Unavailable Shukri, D Evan PA Unavailable Unavailable Shukri, D Evan PA Unavailable Unavailable Shukri, D Evan PA Unavailable Unavailable Shukri, D Evan PA Unavailable Unavailable Shukri, D Evan PA Unavailable Unavailable Shukri, D Evan PA Unavailable Unavailable Shukri, D Evan PA Unavailable Unavailable Shukri, D Evan PA Unavailable Unavailable Shukri, D Evan PA Unavailable Unavailable Shukri, D Evan PA Unavailable Unavailable Shukri, D Evan PA Unavailable Unavailable Shukri, D Evan PA Unavailable Unavailable Shukri, D Evan PA Unavailable Unavailable Shukri, D Evan PA Unavailable Unavailable Shukri, D Evan PA Unavailable Unavailable Shukri, D Evan PA Unavailable Unavailable Shukri, D Evan PA Unavailable Unavailable Shukri, D Evan PA Unavailable Unavailable Shukri, D Evan PA Unavailable Unavailable Shukri, D Evan PA Unavailable Unavailable Shukri, D Evan PA Unavailable Unavailable Shukri, D Evan PA Unavailable Unavailable Shukri, D Evan PA Unavailable Unavailable Shukri, D Evan PA Unavailable Unavailable Shukri, D Evan PA Unavailable Unavailable Shukri, D Evan PA Unavailable Unavailable Shukri, D Evan PA Unavailable Unavailable Shukri, D Evan PA Unavailable Unavailable Shukri, D Evan PA Unavailable Unavailable Shukri, D Evan PA Unavailable Unavailable Shukri, D Evan PA Unavailable Unavailable Shukri, D Evan PA Unavailable Unavailable Shukri, D Evan PA Unavailable Unavailable Shukri, D Evan PA Unavailable Unavailable Shukri, D Evan PA Unavailable Unavailable Shukri, D Evan PA Unavailable Unavailable Shukri, D Evan PA Unavailable Unavailable Shukri, D Evan PA Unavailable Unavailable Shukri, D Evan PA Unavailable Unavailable Shukri, D Evan PA Unavailable Unavailable Shukri, D Evan PA Unavailable Unavailable Shukri, D Evan PA Unavailable Unavailable Shukri, D Evan PA Unavailable Unavailable Shukri, D Evan PA Unavailable Unavailable Shukri, D Evan PA Unavailable Unavailable Shukri, D Evan PA Unavailable Unavailable Shukri, D Evan PA Unavailable Unavailable Shukri, D Evan PA Unavailable Unavailable Shukri, D Evan PA Unavailable Unavailable Shukri, D Evan PA Unavailable Unavailable Shkuri, D Evan PA Unavailable Unavailable Shukri, D Evan PA Unavailable Unavailable Shukri, D Evan PA Unavailable Unavailable Shukri, D Evan PA Unavailable Unavailable Shukri, D Evan PA Unavailable Unavailable Shukri, D Evan PA Unavailable Unavailable Shukri, D Evan PA Unavailable Unavailable Shukri, D Evan PA Unavailable Unavailable Shukri, D Evan PA Unavailable Unavailable Shukri, D Evan PA Unavailable Unavailable Shukri, D Evan PA Unavailable Unavailable Shukri, D Evan PA Unavailable Unavailable Shukri, D Evan PA Unavailable Unavailable Shukri, D Evan PA Unavailable Unavailable Shukri, D Evan PA Unavailable Unavailable Shukri, D Evan PA Unavailable Unavailable Shukri, D Evan PA Unavailable Unavailable Shukri, D Evan PA Unavailable Unavailable Shukri, D Evan PA Unavailable Unavailable Shukri, D Evan PA Unavailable Unavailable Shukri, D Evan PA Unavailable Unavailable Shukri, D Evan PA Unavailable Unavailable Shukri, D Evan PA Unavailable Unavailable Shukri, D Evan PA Unavailable Unavailable Shukri, D Evan PA Unavailable Unavailable Shukri, D Evan PA Unavailable Unavailable Shukri, D Evan PA Unavailable Unavailable Shukri, D Evan PA Unavailable Unavailable Shukri, D Evan PA Unavailable Unavailable Shukri, D Evan PA Unavailable Unavailable Shukri, D Evan PA Unavailable Unavailable Shukri, D Evan PA Unavailable Unavailable Shukri, D Evan PA Unavailable Unavailable Shukri, D Evan PA Unavailable Unavailable Shukri, D Evan PA Unavailable Unavailable Shukri, D Evan PA Unavailable Unavailable Shukri, D Evan PA Unavailable Unavailable Shukri, D Evan PA Unavailable Unavailable KELVIN, M RACHELLE PA Unavailable Unavailable KELVIN, M RACHELLE PA Unavailable Unavailable KELVIN, M RACHELLE PA Unavailable Unavailable KELVIN, M ARCHELLE PA Unavailable Unavailable KELVIN, M RACHELLE PA Unavailable Unavailable KELVIN, M RACHELLE PA Unavailable Unavailable KELVIN, M RACHELLE PA Unavailable Unavailable KLEVIN, M RACHELLE PA Unavailable Unavailable KELVIN, M RACHELLE PA Unavailable Unavailable KELVIN, M RACHELLE PA Unavailable Unavailable KELVIN, M RACHELLE PA Unavailable Unavailable KELVIN, M RACHELLE PA Unavailable Unavailable KELVIN, M RACHELLE PA Unavailable Unavailable KELVIN, M RACHELLE PA Unavailable Unavailable KELVIN, M RACHELLE PA Unavailable Unavailable KELVIN, M RACHELLE PA Unavailable Unavailable KELVIN, M RACHELLE PA Unavailable Unavailable KELVIN, M RACHELLE PA Unavailable Unavailable KELVIN, M RACHELLE PA Unavailable Unavailable KELVIN, M RACHELLE PA Unavailable Unavailable KELVIN, M RACHELLE PA Unavailable Unavailable KELVIN, M RACHELLE PA Unavailable Unavailable KELVIN, M RACHELLE PA Unavailable Unavailable KELVIN, M RACHELLE PA Unavailable Unavailable Re-disclosure Warning The records that you are about to access may contain information from federally-assisted alcohol or drug abuse programs. If such information is present, then the following federally mandated warning applies: This information has been disclosed to you from records protected by federal confidentiality rules (42 CFR part 2). The federal rules prohibit you from making any further disclosure of this information unless further disclosure is expressly permitted by the written consent of the person to whom it pertains or as otherwise permitted by 42 CFR part 2. A general authorization for the release of medical or other information is NOT sufficient for this purpose. The Federal rules restrict any use of the information to criminally investigate or prosecute any alcohol or drug abuse patient.The records that you are about to access may contain highly sensitive health information, the redisclosure of which is protected by Article 27-F of the [facility] Public Health law. If you continue you may have access to information: Regarding HIV / AIDS; Provided by facilities licensed or operated by the [facility] Office of Mental Health; or Provided by the [facility] Office for People With Developmental Disabilities. If such information is present, then the following [facility] mandated warning applies: This information has been disclosed to you from confidential records which are protected by state law. State law prohibits you from making any further disclosure of this information without the specific written consent of the person to whom it pertains, or as otherwise permitted by law. Any unauthorized further disclosure in violation of state law may result in a fine or longterm sentence or both. A general authorization for the release of medical or other information is NOT sufficient authorization for further disc losure. Family History Family Member Name Family Member Gender Family Member Status Date o f Status Description Data Source(s) Unknown Unknown Problem [facility] ([facility]) Unknown Unknown Problem [facility] ([facility] mother Unknown Unknown Problem [facility] ([facility]) Unknown Male Problem [facility] ([facility] () Unknown Male Problem [facility] ([facility] Unknown Female Problem MED[facility] ([facility]) Encounters Encounter Providers Location Date Indications Data Source(s ) Outpatient Attender: Evan MCDONNELL [place] [facility] 01:00:00 PM EST [facility] ([facility] Outpatient Attender: Evan MCDONNELL [place] [facility] 12:30:00 PM EST [facility] ([facility] Outpatient Attender: Evan MCDONNE[facility] [place] [facility] 01/2020 02:00:00 PM EST MED[facility] ([facility] OFFICE OUTPATIENT NEW 30 MINUTES Attender: RACHELLE MCDONNELL Phys ical Therapy 06/20/2020 01:00:00 PM EDT MED[facility] ([facility]) Outpatient Attender: Evan MCDONNELL [place] [facility] 02:20:00 PM EDT MED[facility] ([facility] Outpatient Attender: Evan MCDONNELL [place] [facility] 03:00:00 PM EDT MED[facility] ([facility] Outpatient Attender: Evan MCDONNELL [place] [facility] 12/2019 02:20:00 PM EDT MED[facility] ([facility] Outpatient Attender: Evan MCDONNELL [place] [facility] 02:20:00 PM EDT MED[facility] ([facility] Outpatient Attender: Evan MCDONNELL [place] [facility] 01/2020 01:30:00 PM EDT [facility] ([facility] Outpatient Attender: Evan VALLECILLO eferrer: Evan Watt PAConsultant: Evan MCDONNELL 12/06/2019 11:24:00 AM EDT - 12/06/2019 11:34: 00 AM EDT [facility] Patient discharged. Outpatient Attender: Evan MCDONNELL [place] [facility] 01/2020 09:00:00 AM EST [facility] ([facility] Immunizations Vaccine Date Status Description Data Source(s) COVID-19 VACCINE, [id number], LNP-S (MODERNA)/PF 10/06/2020 1 2:00:00 AM EST completed [facility] Medications Medication Brand Name Start Date Product Form Dose Route Admi nistrative Instructions Pharmacy Instructions Status Indications Reaction Description Data Source(s) 112 mcg 10/03/2020 12:00:00 AM EST tablet 90 TAKE ONE TABLET BY MOUTH EVERY DAY TAKE ONE TABLET BY MOUTH EVERY DAY SOLD: 10/04/2020 [facility] 20-12.5 mg 09/07/2020 12:00:00 AM EST tablet 90 TAKE ONE TABLET BY MOUTH EVERY DAY TAKE ONE TABLET BY MOUTH EVERY DAY SOLD: 09/10/2020 [facility] buspirone hydrochloride 5 MG Oral Tablet BUSPIRONE HCL 08/01/2020 12:00:00 AM EST tablet 30 TAKE ONE TABLET BY MOUTH THREE TIMES A DAY NEEDED FOR ANXIETY TAKE ONE TABLET BY MOUTH THREE TIMES A DAY NEEDED F OR ANXIETY SOLD: 08/01/2020 [facility] Benazepril hydrochloride 20 MG Oral Tablet [Lotensin] Lotens in 07/24/2020 12:00:00 AM EST ORAL active M EDENT ([facility] Potassium Chloride 10 MEQ Extended Release Oral Tablet Potassium Chloride Nany ER 07/19/2020 12:00:00 AM EST ORAL active [facility] ([facility] 10 mEq 07/19/2020 12:00:00 AM EST tablet,ER particles/cry stals 30 TAKE ONE TABLET BY MOUTH EVERY DAY TAKE ONE TABLET BY MOUTH EVERY DAY SOLD: 07/19/2020 [facility] 875-125 mg 07/12/2020 12:00:00 AM EST tablet 10 TAKE ONE TABLET BY MOUTH TWICE A DAY WITH FOOD FOR 5 DAYS TAKE ONE TABLET BY MOUTH TWICE A DAY WIT H FOOD FOR 5 DAYS SOLD: 07/12/2020 [facility] 10 mg 07/12/2020 12:00:00 AM EST capsule 14 TAKE ONE CAPSULE BY MOUTH EVERY 12 HOURS NEEDED FOR ABDOMINAL PAIN TAKE ONE CAPSULE BY MOUTH EVERY 12 HOURS NEEDED FOR ABDOMINAL PAIN SOLD: 07/12/2020 [facility] 2.5-0.025 mg 07/08/2020 12:00:00 AM EST tablet 56 TAKE ONE TO TWO TABLETS BY MOUTH FOUR TIMES A DAY NEEDED FOR DIARRHEA MAXIMUM DAILY DOSE = EIGHT TABLETS TAKE ONE TO TWO TABLETS BY MOUTH FOUR TI MES A DAY NEEDED FOR DIARRHEA MAXIMUM DAILY DOSE = EIGHT TABLETS SOLD: 07/08/2020 [facility] Atropine Sulfate 0.025 MG / Diphenoxylat e Hydrochloride 2.5 MG Oral Tablet [Lomotil] Lomotil 07/07/2020 12:00:00 AM EST ORAL activ e MEDENT ([facility] 20-12.5 mg 06/29/2020 12:00:00 AM EDT tablet 90 TAKE ONE TABLET BY MOUTH EVERY DAY TAKE ONE TABLET BY MOUTH EVERY DAY SOLD: 07/01/2020 [facility] 112 mcg 06/29/2020 12:00:00 AM EDT tablet 90 TAKE ONE TABLET BY MOUTH EVERY DAY TAKE ONE TABLET BY MOUTH EVERY DAY SOLD: 07/01/2020 [facility] Atropine Sulfate 0.54179 MG/ML / Hyoscya mine Sulfate 0.0207 MG/ML / Phenobarbital 3.24 MG/ML / Scopolamine Hydrobromide 0.0013 MG/ML Oral Solution 16.2-0.1037 -0.0194 mg/5 mL PHENOBARBITAL/HYOSCYAMINE SULF/ATROPINE SULF/SCOPOLAMINE HB 06/09/2020 12:00:00 AM EDT [facility]ixir 120 TAKE 5ML BY MOUTH TWO TIMES A DAY MAXIMUM DAILY DOSE = 10ML TAKE 5ML BY MOUTH TWO TIMES A DAY MAXIMUM DAILY DOSE = 10ML SOLD: 06/10/2020 [facility] Cyclobenzaprine hydrochloride 10 MG Oral Tablet CYCLOBENZAPR INE HCL 06/08/2020 12:00:00 AM EDT tablet 30 TAKE ONE TABLET BY MOUTH AT BEDTIME TAKE ONE TABLET BY MOUTH AT BEDTIME SOLD: 06/10/2020 [facility] Atropine Sulfate 0.20624 MG/ML / Hyoscya mine Sulfate 0.0207 MG/ML / Phenobarbital 3.24 MG/ML / Scopolamine Hydrobromide 0.0013 MG/ML Oral Solution [] 06/07/2020 12:00:00 AM EDT ORAL act adrian MED[facility] ([facility] Cyclobenzaprine hydrochloride 10 MG Oral Tablet Cyclobenzapr ine HCL 06/07/2020 12:00:00 AM EDT ORAL active M [facility] ([facility] 50-325-40 mg 06/01/2020 12:00:00 AM EDT tablet 30 TAKE 1-2 TABLETS BY MOUTH THREE TIMES A DAY NEEDED FOR PAIN TAKE 1-2 TABLETS BY MOUTH THREE TIMES A DAY NEEDED FOR PAIN SOLD: 06/01/2020 [facility] 250-50 mcg/dose 06/01/2020 12:00:00 AM EDT blister with maximino ce 180 INHALE ONE PUFF BY MOUTH TWO TIMES A DAY INHALE ONE PUFF BY MOUTH TWO TIMES A DAY SOLD: 06/01/2020 [facility] 4 mg 06/01/2020 12:00:00 AM EDT tablet,disintegrating 9 0 DISSOLVE ONE TABLET ON TONGUE EVERY 8 HOURS NEEDED FOR NAUSEA DISSOLVE ONE TABLET ON TONGUE EVERY 8 HOURS NEEDED FOR NAUSEA SOLD: 06/01/2020 [facility] Acetaminophen 325 MG / butalbital 50 MG / Caffeine 40 MG Oral Tablet [Esgic] Esgic 05/31/2020 12:00:00 AM EDT ORAL completed [facility] ([facility] Ondansetron 4 MG Disintegrating Oral Tablet Ondansetron 05/31/2020 12:00:00 AM EDT completed [facility] ([facility] 1 % 04/29/2020 12:00:00 AM EDT cream 30 APPLY TO THE FACE SPARINGLY ONCE DAILY APPLY TO THE FACE SPARINGLY ONCE DAILY SOLD: 04/30/2020 [facility] 20-12.5 mg 03/22/2020 12:00:00 AM EDT tablet 90 TAKE ONE TABLET BY MOUTH EVERY DAY TAKE ONE TABLET BY MOUTH EVERY DAY SOLD: 03/24/2020 [facility] 90 mcg/actuation 03/21/2020 12:00:00 AM EDT HFA aerosol inha ler 8 INHALE TWO PUFFS BY MOUTH EVERY 4 HOURS NEEDED FOR SHORTNESS OF BREATH INHALE TWO PUFFS BY MOUTH EVERY 4 HOURS NEEDED FOR SHORTNESS OF BREATH SOLD: 03/22/2020 [facility] Diclofenac Sodium 0.01 MG/MG Topical Gel Diclofenac Sodium 03/21/2020 12:00:00 AM EDT active MED[facility] ([facility] 1 % 03/21/2020 12:00:00 AM EDT gel 100 APPLY 3 GRAMS TO AFFECTED AREA FOUR TIMES A DAY APPLY 3 GRAMS TO AFFECTED AREA FOUR TIMES A DAY SOLD: 03/22/2020 [facility] 112 mcg 03/21/2020 12:00:00 AM EDT tablet 90 TAKE ONE TABLET BY MOUTH EVERY DAY TAKE ONE TABLET BY MOUTH EVERY DAY SOLD: 03/22/2020 [facility] 10 mg 03/21/2020 12:00:00 AM EDT capsule 30 TAKE ONE CAPSULE BY MOUTH FOUR TIMES A DAY NEEDED, 30 MINUTES PRIOR TO EATING AND BEDTIME TAKE ONE CAPSULE BY MOUTH FOUR TIMES A DAY NEEDED, 30 MINUTES PRIOR TO EATING AND BEDTIME SOLD: 03/22/2020 [facility] 10 mg 03/17/2020 12:00:00 AM EDT tablet 120 TAKE ONE TABLET BY MOUTH EVERY 6 HOURS FOR THE ITCH TAKE ONE TABLET BY MOUTH EVERY 6 HOURS FOR THE ITCH SO LD: 03/22/2020 [facility] 0.005 % 03/10/2020 12:00:00 AM EDT ointment 15 APPLY TO FACE TWO TIMES A DAY FOR 5 DAYS NEEDED APPLY TO FACE TWO TIMES A DAY FOR 5 DAYS NEEDED PETTY [facility] 4 mg 02/20/2020 12:00:00 AM EDT tablets,dose pack 21 TAKE BY MOUTH DIRECTED ON PACKAGE TAKE BY MOUTH DIRECTED ON PACKAGE SOLD: 02/22/2020 [facility] Medrol Medrol 02/15/2020 12:00:00 AM EDT completed MED[facility] ([facility] 4 mg 02/15/2020 12:00:00 AM EDT tablets,dose pack 21 DIRECTED DIRECTED SOLD: 02/16/2020 [facility] 10 mg 01/04/2020 12:00:00 AM EDT capsule 30 TAKE ONE CAPSULE BY MOUTH FOUR TIMES A DAY NEEDED, 30 MINUTES PRIOR TO EATING AND AT BEDTIME TAKE ONE CAPSULE BY MOUTH FOUR TIMES A DAY NEEDED, 30 MINUTES PRIOR TO EATING AND AT BEDTIME SOLD: 01/06/2020 [facility] Dicyclomine Hydrochloride 10 MG Oral Capsule Dicyclomine HCL 01/04/2020 12:00:00 AM EDT ORAL active [facility] ([facility] 112 mcg 01/04/2020 12:00:00 AM EDT tablet 90 TAKE ONE TABLET BY MOUTH EVERY DAY REPLACES THE 125MG DOSE 01/13/2018 TAKE ONE TABLET BY MOUTH EVERY DAY REPLACES THE 125MG DOSE 01/13/2018 SOLD: 01/06/2020 [facility] Methylprednisolone 4 MG Oral Tablet [Medrol] Medrol 12:00:00 AM EDT completed MED[facility] ([facility] 4 mg 12/27/2019 12:00:00 AM EDT tablet 21 USE A S DIRECTED USE DIRECTED SOLD: 12/28/2019 [facility] 100 mg 12/10/2019 12:00:00 AM EDT capsule 20 TAKE ONE CAPSULE BY MOUTH TWICE A DAY TAKE ONE CAPSULE BY MOUTH TWICE A DAY SOLD: 12/10/2019 [facility] NITROFURANTOIN, MACROCRYSTALS 100 MG Oral Capsule [Macrodant in] Macrodantin 12/10/2019 12:00:00 AM EDT ORAL completed [facility] ([facility] 40 mg 12/06/2019 12:00:00 AM EDT capsule,delayed release (DR/EC) 90 TAKE ONE CAPSULE BY MOUTH EVERY DAY TAKE ONE CAPSULE BY MOUTH EVERY DAY SOLD: 12/06/2019 [facility] 20 mg 12/06/2019 12:00:00 AM EDT tablet 90 TAKE ONE TABLET BY MOUTH EVERY DAY TAKE ONE TABLET BY MOUTH EVERY DAY SOLD: 12/06/2019 [facility] 10 mg 12/06/2019 12:00:00 AM EDT capsule 30 TAKE ONE CAPSULE BY MOUTH FOUR TIMES A DAY NEEDED 30 MINUTES PRIOR TO EATING AND AT BEDTIME TAKE ONE CAPSULE BY MOUTH FOUR TIMES A DAY NEEDED 30 MINUTES PRIOR TO EATING AND AT BEDTIME SOLD: 12/23/2019 [facility] 40 mg 12/06/2019 12:00:00 AM EDT capsule,delayed release (DR/EC) 90 TAKE ONE CAPSULE BY MOUTH EVERY DAY TAKE ONE CAPSULE BY MOUTH EVERY DAY SOLD: 04/09/2020 [facility] 40 mg 12/06/2019 12:00:00 AM EDT capsule,delayed release (DR/EC) 90 TAKE ONE CAPSULE BY MOUTH EVERY DAY TAKE ONE CAPSULE BY MOUTH EVERY DAY SOLD: 09/25/2020 [facility] 10 mg 12/06/2019 12:00:00 AM EDT capsule 30 TAKE ONE CAPSULE BY MOUTH FOUR TIMES A DAY NEEDED 30 MINUTES PRIOR TO EATING AND AT BEDTIME TAKE ONE CAPSULE BY MOUTH FOUR TIMES A DAY NEEDED 30 MINUTES PRIOR TO EATING AND AT BEDTIME SOLD: 12/06/2019 [facility] Omeprazole 40 MG Delayed Release Oral Capsule Omeprazole 12/06/2019 12:00:00 AM EDT ORAL active MED[facility] ([facility] Dicyclomine Hydrochloride 10 MG Oral Capsule Dicyclomine HCL 12/06/2019 12:00:00 AM EDT ORAL completed [facility] ([facility] Benazepril hydrochloride 20 MG Oral Tablet [Lotensin] Lotens in 12/06/2019 12:00:00 AM EDT ORAL completed [facility] ([facility] 250-50 mcg/dose 11/29/2019 12:00:00 AM EDT blister with maximino ce 180 INHALE ONE PUFF BY MOUTH TWICE A DAY INHALE ONE PUFF BY MOUTH TWICE A DAY SOLD: 03/01/2020 [facility] 250-50 mcg/dose 11/29/2019 12:00:00 AM EDT blister with maximino ce 180 INHALE ONE PUFF BY MOUTH TWICE A DAY INHALE ONE PUFF BY MOUTH TWICE A DAY SOLD: 12/01/2019 [facility] 250 mg 11/04/2019 12:00:00 AM EST tablet 6 TAKE TWO TABLETS BY MOUTH AT ONCE ON THE FIRST DAY THEN TAKE ONE DAILY THEREAFTER TAKE TWO TABLETS BY MOUTH AT ONCE ON THE FIRST DAY THEN TAKE ONE DAILY THEREAFTER SOLD: 11/04/2019 [facility] 100 mg 11/03/2019 12:00:00 AM EST capsule 20 TAKE ONE CAPSULE BY MOUTH TWICE A DAY FOR 10 DAYS TAKE ONE CAPSULE BY MOUTH TWICE A DAY FOR 10 DAYS SOLD : 11/03/2019 [facility] Methylprednisolone Sodium Succinate To 125 MG 11/03/2019 1 2:00:00 AM EST completed MEDENT ([facility]) Medication administered onsite 4 mg 11/03/2019 12:00:00 AM EST tablets,dose pack 21 DIRECTED WITH FOOD DIRECTED WITH FOOD SOLD: 11/03/2019 [facility] Methylprednisolone 4 MG Oral Tablet Methylprednisolone 12/2019 12:00:00 AM EST ORAL active MEDENT ([facility]) Doxycycline Monohydrate 100 MG Oral Capsule Doxycycline [place] hydrate 11/03/2019 12:00:00 AM EST ORAL active M [facility] ([facility]) 20-12.5 mg 10/04/2019 12:00:00 AM EST tablet 90 TAKE ONE TABLET BY MOUTH EVERY DAY TAKE ONE TABLET BY MOUTH EVERY DAY SOLD: 10/06/2019 [facility] 112 mcg 10/04/2019 12:00:00 AM EST tablet 90 TAKE ONE TABLET BY MOUTH EVERY DAY(REPLACES THE 125MG DOSE) TAKE ONE TABLET BY MOUTH EVERY DAY(REPLA MAINOR THE 125MG DOSE) SOLD: 10/06/2019 [facility] 90 mcg/actuation 09/06/2019 12:00:00 AM EST HFA aerosol inha ler 8 INHALE TWO PUFFS BY MOUTH EVERY 4 HOURS NEEDED FOR FOR SHORTNESS OF BREATH INHALE TWO PUFFS BY MOUTH EVERY 4 HOURS NEEDED FOR FOR SHORTNESS OF BREATH SOLD: 09/07/2019 [facility] 200 ACTUAT Albuterol 0.09 MG/ACTUAT Metered Dose Inhaler [Pr oAir] Proair HFA 09/06/2019 12:00:00 AM EST ORAL active [facility] ([facility] 10-8 mg/5 mL 09/06/2019 12:00:00 AM EST suspension,extended rel 12 hr 95 TAKE 5 ML BY MOUTH TWO TIMES A DAY NEEDED FOR COUGH MAXIMUM DAILY DOSE = 10ML TAKE 5 ML BY MOUTH TWO TIMES A DAY NE EDED FOR COUGH MAXIMUM DAILY DOSE = 10ML SOLD: 09/07/2019 [facility] 250-50 mcg/dose 09/06/2019 12:00:00 AM EST blister with maximino ce 180 INHALE ONE PUFF BY MOUTH TWICE A DAY INHALE ONE PUFF BY MOUTH TWICE A DAY SOLD: 09/07/2019 [facility] 60 ACTUAT Fluticasone propionate 0.25 MG /ACTUAT / salmeterol 0.05 MG/ACTUAT Dry Powder Inhaler [Advair] Advair Diskus 09/03/2019 12:00:00 AM EST ORAL active [facility] ([facility] Insurance Providers Payer name Policy type / Coverage type Policy ID Covered libertarian ID Covered libertarian's relationship to garza Policy Garza Plan Information MEDICARE [id number] SP [id number] BCBS EMPIRE KARI DIV [id number] SP [id number] UNITED HEALTHCARE [id number] SP [id number] SELF PAY ONLY MEDICARE [id number] SP [id number] MEDICARE PART A -O/P [id number] 18 [id number] EMPIRE BLUE CROSS BLUE SHIELD -O/P [id number] 18 [id number] EMPIRE BLUE CROSS BLUE SHIELD -O/P [id number] 18 [id number] [place] Medicare Primary [id number] Self [id number] [employer] [place] Medigap Part B [id number] Self [id number] [employer] [place] Medigap Part B [id number] Self [id number] Medicare [place] Gov't Servi Medicare Primary [id number] Self [id number] MEDICARE [id number] SP [id number] A BCBS EMPIRE KARI DIV [id number] SP [id number] [place] Medicare Primary [id number] Self [id number] [employer] [place] Medigap Part B [id number] Self [id number] Medicare [facility] Medicare Primary [id number] Self [id number] [employer] [place] Medigap Part B [id number] Self [id number] Medicare [place] Gov't Servi Medicare Primary [id number] Self [id number] UNITED HEALTHCARE([place]) O [id number] S [id number] MEDICARE C [id number] S [id number] A [employer], [facility] C [id number] S [id number] [place] Plan Medigap Part B [id number] Family Dependent [id number] Medicare - [facility] Medicare Primary [id number] Self [id number] BCBS EMPIRE KARI DIV UNAVAILABLE UNAVAILABLE MEDICAID UNAVAILABLE UNAVAILA BLE [facility] COMMUNITY PLAN MCDO [id number] SP [id number] UNITED HEALTHCARE [id number] [facility] [id number] SP [id number] [facility] DIV [id number] [facility] [id number] [place] Plan-[facility] Medigap Part B [id number] Self [id number] Medicare (Part B) Medicare Primary [id number] Family Depende nt [id number] [facility] [place] Par Medigap Part B [id number] Family Depen dent [id number] Medicare - [place] Medicare Primary [id number] Self [id number] [place] Plan-[facility] Medigap Part B [id number] Self [id number] [facility] Medierie Part B Self [place] Primary Self [facility] DIV [id number] Problems, Conditions, and Diagnoses Code Display Name Description Problem Type Effective Dates Data Source(s) 922653846 Hypomagnesemia Hypomagnesemia Problem 07/10/2020 12:00: 00 AM EST [facility] ([facility] [id number] Hypokalemia Hypokalemia Problem 07/10/2020 12:00:00 AM EST [facility] ([facility] [id number] Chronic kidney disease stage 3 Chronic kidney disease stage 3 Problem 12/06/2019 12:00:00 AM EDT [facility] ([facility] 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 and reported by [facility]. ID Date Data Source [id number] 07/24/2020 02:41:00 PM EST [facility] ([facility] Name Value Range Interpretation Code Description Data Tere rce(s) Supporting Document(s) Magnesium [Mass/volume] in Serum or Plasma 1.8 mg/dL 1.6-2.3 [facility] ([facility] ID Date Data Source [id number] 07/24/2020 02:40:00 PM EST [facility] ([facility] Name Value Range Interpretation Code Description Data Tere rce(s) Supporting Document(s) Glu 118 mg/dL 70-110 Above high normal [facility] ([facility] CHRONIC KIDNEY DISEASE STAGING PER NKF: MALE GFR INTERPRETATION: 20-49 YRS: [...] Normal 80 and above >32 mL/min Normal Creat 1.6 mg/dL 0.5-1.0 Above high normal [facility] ([facility] CHRONIC KIDNEY DISEASE STAGING PER NKF: MALE GFR INTERPRETATION: 20-49 YRS: [...] Normal 80 and above >32 mL/min Normal BUN 25 mg/dL 8-23 Above high normal [facility] ([facility] CHRONIC KIDNEY DISEASE STAGING PER NKF: MALE GFR INTERPRETATION: 20-49 YRS: [...] Normal 80 and above >32 mL/min Normal CL 111.3 mmol/L 98.0-107.0 Above high normal MEDEN T ([facility] CHRONIC KIDNEY DISEASE STAGING PER NKF: MALE GFR INTERPRETATION: 20-49 YRS: [...] Normal 80 and above >32 mL/min Normal BUN/Creatinine Ratio 15.0 Calc [facility] ([facility] CHRONIC KIDNEY DISEASE STAGING PER NKF: MALE GFR INTERPRETATION: 20-49 YRS: [...] Normal 80 and above >32 mL/min Normal Na 137 mmol/L 136-145 [facility] CHRONIC KIDNEY DISEASE STAGING PER NKF: MALE GFR INTERPRETATION: 20-49 YRS: [...] Normal 80 and above >32 mL/min Normal K 4.4 mmol/L 3.5-5.1 [facility] ([facility] CHRONIC KIDNEY DISEASE STAGING PER NKF: MALE GFR INTERPRETATION: 20-49 YRS: [...] Normal 80 and above >32 mL/min Normal CA 9.7 mg/dL 8.6-10.2 [facility] CHRONIC KIDNEY DISEASE STAGING PER NKF: MALE GFR INTERPRETATION: 20-49 YRS: [...] Normal 80 and above >32 mL/min Normal Co2 12.5 mmol/L 22.0-29.0 Below low normal [facility] ([facility] CHRONIC KIDNEY DISEASE STAGING PER NKF: MALE GFR INTERPRETATION: 20-49 YRS: [...] Normal 80 and above >32 mL/min Normal A/G Ratio 1.6 Calc [facility] ([facility] CHRONIC KIDNEY DISEASE STAGING PER NKF: MALE GFR INTERPRETATION: 20-49 YRS: [...] Normal 80 and above >32 mL/min Normal Globulin 2.2 Calc [facility] ([facility] CHRONIC KIDNEY DISEASE STAGING PER NKF: MALE GFR INTERPRETATION: 20-49 YRS: [...] Normal 80 and above >32 mL/min Normal TP 5.8 g/dL 6.6-8.7 Below low normal [facility] ( [facility] CHRONIC KIDNEY DISEASE STAGING PER NKF: MALE GFR INTERPRETATION: 20-49 YRS: [...] Normal 80 and above >32 mL/min Normal Alb 3.6 g/dL 3.4-4.8 [facility] ([facility] CHRONIC KIDNEY DISEASE STAGING PER NKF: MALE GFR INTERPRETATION: 20-49 YRS: [...] Normal 80 and above >32 mL/min Normal Ast (Sgot) 18 U/L 0-40 [facility] ([facility] CHRONIC KIDNEY DISEASE STAGING PER NKF: MALE GFR INTERPRETATION: 20-49 YRS: [...] Normal 80 and above >32 mL/min Normal Alt (SGPT) 11 U/L 0-41 [facility] ([facility] CHRONIC KIDNEY DISEASE STAGING PER NKF: MALE GFR INTERPRETATION: 20-49 YRS: [...] Normal 80 and above >32 mL/min Normal Alp 69.7 U/L 35-129 [facility] ([facility] CHRONIC KIDNEY DISEASE STAGING PER NKF: MALE GFR INTERPRETATION: 20-49 YRS: [...] Normal 80 and above >32 mL/min Normal Osmolality-Calculated 279.5 Calc MED ENT ([facility] CHRONIC KIDNEY DISEASE STAGING PER NKF: MALE GFR INTERPRETATION: 20-49 YRS: [...] Normal 80 and above >32 mL/min Normal Tbili 0.31 mg/dL 0.0-1.2 [facility] ([facility] CHRONIC KIDNEY DISEASE STAGING PER NKF: MALE GFR INTERPRETATION: 20-49 YRS: [...] Normal 80 and above >32 mL/min Normal Anion Gap 18 mmol/L [facility] ([facility] CHRONIC KIDNEY DISEASE STAGING PER NKF: MALE GFR INTERPRETATION: 20-49 YRS: [...] Normal 80 and above >32 mL/min Normal eGFR 35 # MEDNESHA ( [facility] CHRONIC KIDNEY DISEASE STAGING PER NKF: MALE GFR INTERPRETATION: 20-49 YRS: [...] Normal 80 and above >32 mL/min Normal Comment Laboratory test result Above high normal [facility] ([facility] CHRONIC KIDNEY DISEASE STAGING PER NKF: MALE GFR INTERPRETATION: 20-49 YRS: [...] Normal 80 and above >32 mL/min Normal eGFR Non-Afr. Gibraltarian 30 # [facility] ([facility] CHRONIC KIDNEY DISEASE STAGING PER NKF: MALE GFR INTERPRETATION: 20-49 YRS: [...] Normal 80 and above >32 mL/min Normal ID Date Data Source [id number] 07/17/2020 01:36:00 PM EST [facility] ([facility] Name Value Range Interpretation Code Description Data Tere rce(s) Supporting Document(s) Magnesium [Mass/volume] in Serum or Plasma 1.4 mg/dL 1.6-2.3 Bel[place] w low normal [facility] ([facility] ID Date Data Source [id number] 07/17/2020 01:36:00 PM EST [facility] ([facility] Name Value Range Interpretation Code Description Data Tere rce(s) Supporting Document(s) Glu 95 mg/dL 70-110 [facility] ([facility] CHRONIC KIDNEY DISEASE STAGING PER NKF: MALE GFR INTERPRETATION: 20-49 YRS: [...] Normal 80 and above >32 mL/min Normal BUN 10 mg/dL 8-23 [facility] ([facility] CHRONIC KIDNEY DISEASE STAGING PER NKF: MALE GFR INTERPRETATION: 20-49 YRS: [...] Normal 80 and above >32 mL/min Normal BUN/Creatinine Ratio 8.5 CALC [facility] ([facility] CHRONIC KIDNEY DISEASE STAGING PER NKF: MALE GFR INTERPRETATION: 20-49 YRS: [...] Normal 80 and above >32 mL/min Normal Creat 1.2 mg/dL 0.5-1.0 Above high normal [facility] ([facility] CHRONIC KIDNEY DISEASE STAGING PER NKF: MALE GFR INTERPRETATION: 20-49 YRS: [...] Normal 80 and above >32 mL/min Normal Na 136 mmol/L 136-145 [facility] CHRONIC KIDNEY DISEASE STAGING PER NKF: MALE GFR INTERPRETATION: 20-49 YRS: [...] Normal 80 and above >32 mL/min Normal CL 108.1 mmol/L 98.0-107.0 Above high normal MEDEN T ([facility] CHRONIC KIDNEY DISEASE STAGING PER NKF: MALE GFR INTERPRETATION: 20-49 YRS: [...] Normal 80 and above >32 mL/min Normal K 3.3 mmol/L 3.5-5.1 Below low normal [facility] ( [facility] CHRONIC KIDNEY DISEASE STAGING PER NKF: MALE GFR INTERPRETATION: 20-49 YRS: [...] Normal 80 and above >32 mL/min Normal Co2 11.7 mmol/L 22.0-29.0 Below low normal [facility] ([facility] CHRONIC KIDNEY DISEASE STAGING PER NKF: MALE GFR INTERPRETATION: 20-49 YRS: [...] Normal 80 and above >32 mL/min Normal TP 5.5 g/dL 6.6-8.7 Below low normal [facility] ( [facility] CHRONIC KIDNEY DISEASE STAGING PER NKF: MALE GFR INTERPRETATION: 20-49 YRS: [...] Normal 80 and above >32 mL/min Normal CA 9.5 mg/dL 8.6-10.2 [facility] ([facility] CHRONIC KIDNEY DISEASE STAGING PER NKF: MALE GFR INTERPRETATION: 20-49 YRS: [...] Normal 80 and above >32 mL/min Normal Alb 3.5 g/dL 3.4-4.8 [facility] ([facility] CHRONIC KIDNEY DISEASE STAGING PER NKF: MALE GFR INTERPRETATION: 20-49 YRS: [...] Normal 80 and above >32 mL/min Normal A/G Ratio 1.7 CALC [facility] ([facility] CHRONIC KIDNEY DISEASE STAGING PER NKF: MALE GFR INTERPRETATION: 20-49 YRS: [...] Normal 80 and above >32 mL/min Normal Alp 81.5 U/L 35-129 [facility] ([facility] CHRONIC KIDNEY DISEASE STAGING PER NKF: MALE GFR INTERPRETATION: 20-49 YRS: [...] Normal 80 and above >32 mL/min Normal Globulin 2.1 CALC [facility] ([facility] CHRONIC KIDNEY DISEASE STAGING PER NKF: MALE GFR INTERPRETATION: 20-49 YRS: [...] Normal 80 and above >32 mL/min Normal Alt (SGPT) 15 U/L 0-41 [facility] CHRONIC KIDNEY DISEASE STAGING PER NKF: MALE GFR INTERPRETATION: 20-49 YRS: [...] Normal 80 and above >32 mL/min Normal Osmolality-Calculated 271.1 CALC MED ENT ([facility] CHRONIC KIDNEY DISEASE STAGING PER NKF: MALE GFR INTERPRETATION: 20-49 YRS: [...] Normal 80 and above >32 mL/min Normal Tbili 0.24 mg/dL 0.0-1.2 [facility] ([facility] CHRONIC KIDNEY DISEASE STAGING PER NKF: MALE GFR INTERPRETATION: 20-49 YRS: [...] Normal 80 and above >32 mL/min Normal Ast (Sgot) 23 U/L 0-40 [facility]HA ([facility] CHRONIC KIDNEY DISEASE STAGING PER NKF: MALE GFR INTERPRETATION: 20-49 YRS: [...] Normal 80 and above >32 mL/min Normal Anion Gap 20 mmol/L JORGE L ([facility] CHRONIC KIDNEY DISEASE STAGING PER NKF: MALE GFR INTERPRETATION: 20-49 YRS: [...] Normal 80 and above >32 mL/min Normal eGFR 49 # JORGE L ( [facility] CKD-EPI eGFR Non-Afr. [place]ral[place] 43 # JORGE L ([facility] CKD-EPI ID Date Data Source [id number] 07/10/2020 09:18:00 AM EST JORGE L ([facility] Name Value Range Interpretation Code Description Data Tere rce(s) Supporting Document(s) Laboratory test finding (navigational concept) 112 mg/dL 7 0-105 Above high normal JORGE L ([facility] ) Laboratory test finding (navigational concept) 38.0 % 3 8.0-51.0 Normal (applies to non-numeric results) JORGE L ([facility] Laboratory test finding (navigational concept) 2.8 meq/L 3 .5-5.1 Below lower panic limits [facility] ([facility] ) Laboratory test finding (navigational concept) 135 meq/L 1 36-145 Below low normal [facility] ([facility] ) Laboratory test finding (navigational concept) 15.0 MM/L 2 3.0-27.0 Below low normal [facility] ([facility] ) Laboratory test finding (navigational concept) 108 meq/L 9 8-109 Normal (applies to non-numeric results) [facility] ([facility] Laboratory test finding (navigational concept) 5.0 mg/dL 4 .5-5.3 Normal (applies to non-numeric results) [facility] ([facility] Laboratory test finding (navigational concept) 1.5 mg/dL 0 .6-1.3 Above high normal [facility] ([facility] ) Laboratory test finding (navigational concept) 22 mg/dL 8 -26 Normal (applies to non-numeric results) [facility] ([facility]) ID Date Data Source [id number] 07/10/2020 09:17:00 AM EST [facility] ([facility] Name Value Range Interpretation Code Description Data Tere rce(s) Supporting Document(s) Lactate [Mass/volume] in Serum or Plasma 1.5 mmol/L 0.4-2.0 Normal (applies to non-numeric results) [facility] ([facility]) Y/N query for Sepsis Lactate Rule: Y ID Date Data Source [id number] 07/10/2020 09:16:00 AM EST [facility] ([facility] Name Value Range Interpretation Code Description Data Tere rce(s) Supporting Document(s) Lipoprotein lipase [Enzymatic activity/volume] in Serum or P lasma 322 U/L 73-393 Normal (applies to non-numeric results) [facility] ([facility] Magnesium [Mass/volume] in Serum or Plasma 1.5 mg/dL 1.8-2.4 Bel[place] w low normal [facility] ([facility] ID Date Data Source [id number] 07/10/2020 09:16:00 AM EST [facility] ([facility] Name Value Range Interpretation Code Description Data Tere rce(s) Supporting Document(s) Ast/Sgot 12 U/L 7-37 Normal (applies to non-numeric resul ts) [facility] ([facility] Bilirubin,Total 0.4 mg/dL 0.2-1.0 Normal (applies to non-numeric results) [facility] ([facility] Alkaline Phosphatase 78 U/L 45-117 Normal (applies to non-num racquel results) [facility] ([facility] Bilirubin,Direct 0.2 mg/dL 0.0-0.2 Normal (applies to non-numeric results) [facility] ([facility] Alt/SGPT 14 U/L 12-78 Normal (applies to non-numeric resul ts) [facility] ([facility] Albumin 2.6 GM/DL 3.2-5.2 Below low normal [facility] ( [facility] Albumin/Globulin Ratio 0.8 1.2-2.2 Below low normal [facility] ([facility] Total Protein 5.8 GM/DL 6.4-8.2 Below low normal MEDEN T ([facility] ID Date Data Source [id number] 07/10/2020 09:16:00 AM EST [facility] ([facility] Name Value Range Interpretation Code Description Data Tere rce(s) Supporting Document(s) Prothrombin Time 13.3 s 12.5-14.3 Normal (applies to non-numeric results) [facility] ([facility] Inr 0.99 Normal (applies to non-numeric resul ts) [facility] ([facility] THERAPUTIC HUMAN INR VALUES INDICATIONS NORMAL RANGES PROPHYLAXIS/TREATMENT OF: VENOUS THROMBOSIS 2.0-3.0 PULMONARY EMBOLISM 2.0-3.0 PREVENTION OF SYSTEMIC EMBOLISM FROM: TISSUE HEART VALVES 2.0-3.0 ACUTE MYOCARDIAL INFARCTION 2.0-3.0 VALVULAR HEART DISEASE 2.0-3.0 ATRIAL FIBRILLATION 2.0-3.0 MECHANICAL VALVES(HIGH RISK) 2.5-3.5 RECURRENT MYOCARDIAL INFARCTION 2.5-3.5 ID Date Data Source [id number] 07/10/2020 09:16:00 AM EST [facility] ([facility] Name Value Range Interpretation Code Description Data Tere rce(s) Supporting Document(s) Red Blood Count 3.52 10 4.00-5.40 Below low normal MED ENT ([facility] Hemoglobin 11.9 g/dL 12.0-15.5 Below low normal [facility] ( [facility] White Blood Count 10.0 10 4.0-10.0 Normal (applies to non-numeri c results) [facility] ([facility] Hematocrit 35.6 % 36.0-47.0 Below low normal [facility] ( [facility] Mean Corpuscular Volume 101.1 fl 80.0-96.0 Above high normal [facility] ([facility] Mean Corpuscular Hemoglobin 33.8 pg 27.0-33.0 Above high normal [facility] ([facility] Mean Corpuscular HGB Conc 33.4 g/dL 32.0-36.5 Normal (applies to non-numeric results) [facility] ([facility] ) Red Cell Distribution Width 12.5 % 11.5-14.5 Norm al (applies to non-numeric results) [facility] ([facility] ) Platelet Count, Automated 356 10 150-450 Normal (applies to non-numeric results) [facility] ([facility] ) Neutrophils % 77.1 % 36.0-66.0 Above high normal MEDE NT ([facility] Eos % 2.3 % 0.0-3.0 Normal (applies to non-numeric resul ts) [facility] ([facility] Lymph % 11.0 % 24.0-44.0 Below low normal [facility] ( [facility] Traverse % 8.6 % 0.0-5.0 Above high normal [facility] ([facility] Nucleated Red Blood Cell % 0.0 % 0-0 Normal (applies to n on-numeric results) [facility] ([facility] Baso % 0.5 % 0.0-1.0 Normal (applies to non-numeric resul ts) [facility] ([facility] Immature Granulocyte % 0.5 % 0-3.0 Normal (applies to non-n umeric results) [facility] ([facility] Neutrophils # 7.7 10 1.5-8.5 Normal (applies to non-numeric re sults) [facility] ([facility] Eos # 0.2 10 0.0-0.5 Normal (applies to non-numeric resul ts) [facility] ([facility] Traverse # 0.9 10 0.0-0.8 Above high normal [facility] ([facility] Lymph # 1.1 10 1.5-5.0 Below low normal [facility] ( [facility] Baso # 0.1 10 0.0-0.2 Normal (applies to non-numeric resul ts) [facility] ([facility] ID Date Data Source [id number] 03/21/2020 03:35:00 PM EDT [facility] ([facility] Name Value Range Interpretation Code Description Data Tere rce(s) Supporting Document(s) Thyrotropin [Units/volume] in Serum or Plasma 0.718 ulU/mL 0.60-4.8 [facility] ([facility] ID Date Data Source [id number] 01/04/2020 02:29:00 PM EDT [facility] ([facility] Name Value Range Interpretation Code Description Data Tere rce(s) Supporting Document(s) Urine Culture, Routine Laboratory test result [facility] ([facility] SRC:URINE Bacteria identified in Urine by Culture Laboratory test result [facility] ([facility] SRC:URINE ID Date Data Source [id number] 01/04/2020 02:28:00 PM EDT [facility] ([facility] Name Value Range Interpretation Code Description Data Tere rce(s) Supporting Document(s) Appearance of Urine Laboratory test result [facility] ([facility] Specific [place] 1.020 1.00-1.03 [facility] ([facility] Color Urine Laboratory test result M EDENT ([facility] PH Urine 5.5 5.0-8.0 [facility] Glucose Urine Laboratory test result [facility] ([facility] Blood Urine Laboratory test result M EDENT ([facility] Bilirubin.total [Presence] in Urine by Test strip Laboratory alma delia t result Above high normal [facility] ([facility] ) Ketones Laboratory test result [facility] ([facility] Urobilinogen 0.2 EU/dl 0.2-1.0 [facility] Protein Urine Laboratory test result [facility] ([facility] Nitrite Laboratory test result [facility] ([facility] Leukocytes Laboratory test result Above high normal [facility] ([facility] ID Date Data Source [id number] 12/06/2019 02:49:00 PM EDT [facility] ([facility] Name Value Range Interpretation Code Description Data Tere rce(s) Supporting Document(s) Culture Urine Laboratory test result [facility] ([facility] <content>_CULTURE URINE_</content>
<content>^$720850</content>
<content>^^435026</content>
<content>$$121447</content>
<content>^^822251</content>
<content>$$ 903847</content>
<content>$$449756</content>
<content>$$581973</content>
<content>$$ 666509</content>
<content>$$860076</content>
<content>$$780719</content>
<content> $$707067</content>
<content>$$442516</content>
<content>$$007562</conten t>
<content>$$720054</content>
<content>$$602019</content>
<content> $$383212</content>
<content>$$260245</content>
<content>$$659184</content>
<content>$$48212 0</content>
<content>$$622004</content>
<content>$$149085</content>
<content>$$698183</content>
<content>$$223754</content>
<content>$$472373</content>
<content>$$ 744588</content>
<content>$$957534</content>
<content>$$938004</content>
<content> ^^934238</content>
<content>$$512577</content>
<content>$$141376</conten t>
<content>$$626305</content>
<content></content>
<content>-- Continued on next page --</content>
<content>Patient: LUIS Ragsdale Order: [id number] Page 2</content>
<content>Culture: CULTURE URINE Status: Final</rosalino nt>
<content> < /content>
<content></content>
<content></content>
<content>-- Continued on next page --</content>
<content>Patient: LUIS Ragsdale Order: [id number] Page 2</content>
<content>Culture: CULTURE URINE Status: Prelim</content>
<content> < /content>
<content></content>
<content>$$136012</content>
<content>$ $262371</content>
<content></content>
<content>REPORTED DATE/TIME: 12/10/2019 10:05</content>
<content>Culture: CULTURE URINE Status: Final</content>
<content></content>
<content>Isolate 1 Escherichia coli Flag: A . . . . . . .1</content>
<content>10,000-25,000 colony forming units per mL</content>
<content>Cefazolin with an VICTORINO <=16 predicts susceptibility to the oral agents</content>
<content>cefaclor, cefdinir, cefpodoxime, cefprozil, cefuroxime, cephalexin,</content>
<content>and loracarbef when used for therapy of uncomplicated urinary tract</content>
<content>infections due to E. coli, Klebsiella pneumoniae, and Proteus</content>
<content>mirabilis.</content>
<content> Previous result entered on 12/09/2019 03:47 ET </content>
<content>Gram negative rods</content>
<content>Urine Culture,Comprehensive: P1</content>
<content>Escherichia coli Flag: A</content>
<content></content>
<content>Isolate 2 Enterococcus faecalis Flag: A . . . . . . .7</content>
<content>10,000-25,000 colony forming units per mL</content>
<content> Previous result entered on 12/09/2019 03:47 ET </content>
<content>Microbiological testing to rule out the presence of possible pathogens</content>
<content>is in progress.</content>< br/><content>Enterococcus faecalis Flag: A</content>
<content></content>
<content></content>
<content> Patient: LUIS Ragsdale Order: [id number] Page 3</content>
<content>Culture: CULTURE URINE Status: Final</content>
<content> < /content>
<content></content>
<content>ISOLATE 1 Escherichia coli</content>
<content>ISOLATE 2 Enterococcus faecalis</content>
<content></content>
<content>Isolate 1 Isolate 2</content>
<content>Antibiotic VICTORINO Int VICTORINO Int</content>
<content>Units ug/mL ug/mL</content>
<content> </content>
<content></content>
<content> Amoxicillin/Clavulanic Acid I I</content>
<content>Ampicillin R R</content>
<content>Cefazolin S S</content>
<content>Cefepime S S</content>
<content>Ceftriaxone S S</content>
<content>Cefuroxime I I</content>
<content>Ciprofloxacin R R</content>
<content>Ertapenem S S</content>
<content>Gentamicin R R</content>
<content>Imipenem S S</content>
<content>Levofloxacin R R</content>
<content>Meropenem S S</content>
<content>Nitrofurantoin S S</content>
<content>Penicillin</content>
<content>Piperacillin/Tazobact am S S</content>
<content>Tetracycline S S</content>
<content>Tobramycin R R</content>
<content>Trimethoprim/Sulfa R R</content>
<content> Vancomycin</content>
<content></content>
<content>P1 Test performed by: Garrett BECERRA #: [id number]</content>
<content>[address]</content>
<content> [id number]</content>
<content>[place] [address]</content>
<content>Corporate Law Specialist : Tate Wells MD NPI #:</content>
<content>Linoleum Layer Apprentice :</content>
<content>12/09/19.0612.XMT.SENT REF</content>
<content>12/10/19.1045.XMT.SENT REF</content>
<content>12/10/19. .to SHUKRI GLEASON via fax</content>
<content></content>
<content></content> ID Date Data Source [id number] 12/06/2019 02:48:00 PM EDT [facility] Name Value Range Interpretation Code Description Data Tere rce(s) Supporting Document(s) Magnesium [Mass/volume] in Serum or Plasma 2.1 mg/dL 1.6-2.3 [facility] ([facility] ID Date Data Source [id number] 12/06/2019 02:48:00 PM EDT [facility] ([facility] Name Value Range Interpretation Code Description Data Tere rce(s) Supporting Document(s) Color Urine Laboratory test result M [facility] ([facility] Specific [place] 1.020 1.00-1.03 [facility] Appearance of Urine Laboratory test result [facility] PH Urine 6.0 5.0-8.0 [facility] Bilirubin.total [Presence] in Urine by Test strip Laboratory test res ult [facility] Ketones Laboratory test result [facility] Glucose Urine Laboratory test result [facility] Urobilinogen 0.2 EU/dl 0.2-1.0 [facility] Blood Urine Laboratory test result M [facility] ([facility] Protein Urine Laboratory test result [facility] Leukocytes Laboratory test result Above high normal [facility] Nitrite Laboratory test result [facility] ID Date Data Source [id number] 12/10/2019 10:44:00 AM EDT [facility] Name Value Range Interpretation Code Description Data Tere rce(s) Supporting Document(s) CULTURE URINE [facility] _CULTURE URINE_$$[id number]$$[id number]$$[id number]$$[id number]$$[id number]$$[id number]$$[id number]$$424434$$[id number]$$ 704331$$[id number]$$[id number]$$[id number]$$165417$$[id number]$$[id number]$$745010$$423911$$697421$$ 929760$$336774$$[id number]$$[id number]$$[id number]$$[id number]$$[id number]$$[id number] -- Continued on next page --Patient: LUIS Ragsdale Order: [id number] Page 2Culture: CULTURE URINE Status: Final ==== -- Continued on next page --Patient: LUIS Ragsdale Order: [id number] Page 2Culture: CULTURE URINE Status: Prelim =====$$[id number]$$[id number] DATE/TIME: 12/10/2019 10:05Culture: CULTURE URINE Status: FinalIsolate 1 Escherichia coli Flag: A . . . . . . .110,000-25,000 colony forming units per mLCefazolin with an VICTORINO <=16 predicts susceptibility to the oral agentscefaclor, cefdinir, cefpodoxime, cefprozil, cefuroxime, cephalexin,and loracarbef when used for therapy of uncomplicated urinary tractinfections due to E. coli, Klebsiella pneumoniae, and Proteusmirabilis. Previous result entered on 12/09/2019 03:47 ET Gram negative rodsUrine Culture,Comprehensive: [id number] coli Flag: AIsolate 2 Enterococcus faecalis Flag: A . . . . . . .710,000-25,000 colony forming units per mL Previous result entered on 12/09/2019 03:47 ET Microbiological testing to rule out the presence of possible pathogensis in progress.Enterococcus faecalis Flag: APatient: LUIS Ragsdale Order: [id number] Page 3Culture: CULTURE URINE Status: Final ISOLATE 1 Escherichia coliISOLATE 2 Enterococcus faecalis Isolate 1 Isolate 2Antibiotic VICTORINO Int VICTORINO IntUnits ug/mL ug/mL ----Amoxicillin/Clavulanic Acid I I Ampicillin R R Cefazolin S S Cefepime S S Ceftriaxone S S Cefuroxime I I Ciprofloxacin R R Ertapenem S S Gentamicin R R Imipenem S S Levo floxacin R R Meropenem S S Nitrofurantoin S S Penicillin Piperacillin/Tazobactam S S Tetracycline S S Tobramycin R R Trimethoprim/Sulfa R R Vancomycin P1 Test performed by: [facility] #: [id number] [address] [place] [address] [id number] [facility] [id number] Director : Tate Wells MD NPI #:Linoleum Layer Apprentice : 12/09/1912.XMT.SENT REF 12/10/19.5.LURDES.SENT REF 12/10/19. .to [facility] via fax ID Date Data Source [id number] 12/06/2019 02:09:00 PM EDT [facility] ([facility] Name Value Range Interpretation Code Description Data Tere rce(s) Supporting Document(s) Glu 115 mg/dL 70-110 Above high normal [facility] CHRONIC KIDNEY DISEASE STAGING PER NKF: MALE GFR INTERPRETATION: 20-49 YRS: [...] mL/min Normal 80 and above >32 mL/min NormalNORMAL RANGES Age WBC RBC HGB HCT MCV PLT Adult M 4.1-10.9 4.20-6.30 12.0-18.0 37.0-51.0 80-97 140-440 Adult F 4.1-10.9 4.04-5.48 12.0-18.0 37.0-51.0 80-97 140-440 0- 1 Yr 5.0-20.0 3.9-5.9 15-18 MV: 44 MV: 91 MV: 277 2-9 Yr. 6.0-17.0 3.8-5.4 11-13 MV: 37 MV: 78 MV: 300 10 Yrs. 5.0-13.0 3.8-5.4 12-15 MV: 39 MV: 80 MV: 250 NOTE: * FOR ADULT BLACK MALES AND FEMALES, NORMAL WBC IS 2.9-7.7 K/ML * FOR ADULT BLACK MALES AND FEMALES, NORMAL RBC,HGB, AND HCT IS 5% LESS SOURCE FOR DATA: [employer] 1800 OPERATION MANUAL( AUTOMATED BLOOD COUNTS AND DIFF.) APPENDIX B-3 Creat 1.2 mg/dL 0.5-1.0 Above high normal [facility] CHRONIC KIDNEY DISEASE STAGING PER NKF: MALE GFR INTERPRETATION: 20-49 YRS: [...] mL/min Normal 80 and above >32 mL/min NormalNORMAL RANGES Age WBC RBC HGB HCT MCV PLT Adult M 4.1-10.9 4.20-6.30 12.0-18.0 37.0-51.0 80-97 140-440 Adult F 4.1-10.9 4.04-5.48 12.0-18.0 37.0-51.0 80-97 140-440 0- 1 Yr 5.0-20.0 3.9-5.9 15-18 MV: 44 MV: 91 MV: 277 2-9 Yr. 6.0-17.0 3.8-5.4 11-13 MV: 37 MV: 78 MV: 300 10 Yrs. 5.0-13.0 3.8-5.4 12-15 MV: 39 MV: 80 MV: 250 NOTE: * FOR ADULT BLACK MALES AND FEMALES, NORMAL WBC IS 2.9-7.7 K/ML * FOR ADULT BLACK MALES AND FEMALES, NORMAL RBC,HGB, AND HCT IS 5% LESS SOURCE FOR DATA: JAIME DYN 1800 OPERATION MANUAL( AUTOMATED BLOOD COUNTS AND DIFF.) APPENDIX B-3 BUN 14 mg/dL 04-23 [facility] ([facility] CHRONIC KIDNEY DISEASE STAGING PER NKF: MALE GFR INTERPRETATION: 20-49 YRS: [...] mL/min Normal 80 and above >32 mL/min NormalNORMAL RANGES Age WBC RBC HGB HCT MCV PLT Adult M 4.1-10.9 4.20-6.30 12.0-18.0 37.0-51.0 80-97 140-440 Adult F 4.1-10.9 4.04-5.48 12.0-18.0 37.0-51.0 80-97 140-440 0- 1 Yr 5.0-20.0 3.9-5.9 15-18 MV: 44 MV: 91 MV: 277 2-9 Yr. 6.0-17.0 3.8-5.4 11-13 MV: 37 MV: 78 MV: 300 10 Yrs. 5.0-13.0 3.8-5.4 12-15 MV: 39 MV: 80 MV: 250 NOTE: * FOR ADULT BLACK MALES AND FEMALES, NORMAL WBC IS 2.9-7.7 K/ML * FOR ADULT BLACK MALES AND FEMALES, NORMAL RBC,HGB, AND HCT IS 5% LESS SOURCE FOR DATA: [employer] 1800 OPERATION MANUAL( AUTOMATED BLOOD COUNTS AND DIFF.) APPENDIX B-3 K 3.9 mmol/L 3.5-5.1 [facility] CHRONIC KIDNEY DISEASE STAGING PER NKF: MALE GFR INTERPRETATION: 20-49 YRS: [...] mL/min Normal 80 and above >32 mL/min NormalNORMAL RANGES Age WBC RBC HGB HCT MCV PLT Adult M 4.1-10.9 4.20-6.30 12.0-18.0 37.0-51.0 80-97 140-440 Adult F 4.1-10.9 4.04-5.48 12.0-18.0 37.0-51.0 80-97 140-440 0- 1 Yr 5.0-20.0 3.9-5.9 15-18 MV: 44 MV: 91 MV: 277 2-9 Yr. 6.0-17.0 3.8-5.4 11-13 MV: 37 MV: 78 MV: 300 10 Yrs. 5.0-13.0 3.8-5.4 12-15 MV: 39 MV: 80 MV: 250 NOTE: * FOR ADULT BLACK MALES AND FEMALES, NORMAL WBC IS 2.9-7.7 K/ML * FOR ADULT BLACK MALES AND FEMALES, NORMAL RBC,HGB, AND HCT IS 5% LESS SOURCE FOR DATA: [employer] 1800 OPERATION MANUAL( AUTOMATED BLOOD COUNTS AND DIFF.) APPENDIX B-3 BUN/Creatinine Ratio 12.0 CALC [facility] ([facility] CHRONIC KIDNEY DISEASE STAGING PER NKF: MALE GFR INTERPRETATION: 20-49 YRS: [...] mL/min Normal 80 and above >32 mL/min NormalNORMAL RANGES Age WBC RBC HGB HCT MCV PLT Adult M 4.1-10.9 4.20-6.30 12.0-18.0 37.0-51.0 80-97 140-440 Adult F 4.1-10.9 4.04-5.48 12.0-18.0 37.0-51.0 80-97 140-440 0- 1 Yr 5.0-20.0 3.9-5.9 15-18 MV: 44 MV: 91 MV: 277 2-9 Yr. 6.0-17.0 3.8-5.4 11-13 MV: 37 MV: 78 MV: 300 10 Yrs. 5.0-13.0 3.8-5.4 12-15 MV: 39 MV: 80 MV: 250 NOTE: * FOR ADULT BLACK MALES AND FEMALES, NORMAL WBC IS 2.9-7.7 K/ML * FOR ADULT BLACK MALES AND FEMALES, NORMAL RBC,HGB, AND HCT IS 5% LESS SOURCE FOR DATA: [employer] DYN 1800 OPERATION MANUAL( AUTOMATED BLOOD COUNTS AND DIFF.) APPENDIX B-3 Na 130 mmol/L 136-145 Below low normal [facility] ( [facility] CHRONIC KIDNEY DISEASE STAGING PER NKF: MALE GFR INTERPRETATION: 20-49 YRS: [...] mL/min Normal 80 and above >32 mL/min NormalNORMAL RANGES Age WBC RBC HGB HCT MCV PLT Adult M 4.1-10.9 4.20-6.30 12.0-18.0 37.0-51.0 80-97 140-440 Adult F 4.1-10.9 4.04-5.48 12.0-18.0 37.0-51.0 80-97 140-440 0- 1 Yr 5.0-20.0 3.9-5.9 15-18 MV: 44 MV: 91 MV: 277 2-9 Yr. 6.0-17.0 3.8-5.4 11-13 MV: 37 MV: 78 MV: 300 10 Yrs. 5.0-13.0 3.8-5.4 12-15 MV: 39 MV: 80 MV: 250 NOTE: * FOR ADULT BLACK MALES AND FEMALES, NORMAL WBC IS 2.9-7.7 K/ML * FOR ADULT BLACK MALES AND FEMALES, NORMAL RBC,HGB, AND HCT IS 5% LESS SOURCE FOR DATA: JAIME DYN 1800 OPERATION MANUAL( AUTOMATED BLOOD COUNTS AND DIFF.) APPENDIX B-3 Co2 18.2 mmol/L 22.0-29.0 Below low normal [facility] ([facility] CHRONIC KIDNEY DISEASE STAGING PER NKF: MALE GFR INTERPRETATION: 20-49 YRS: [...] mL/min Normal 80 and above >32 mL/min NormalNORMAL RANGES Age WBC RBC HGB HCT MCV PLT Adult M 4.1-10.9 4.20-6.30 12.0-18.0 37.0-51.0 80-97 140-440 Adult F 4.1-10.9 4.04-5.48 12.0-18.0 37.0-51.0 80-97 140-440 0- 1 Yr 5.0-20.0 3.9-5.9 15-18 MV: 44 MV: 91 MV: 277 2-9 Yr. 6.0-17.0 3.8-5.4 11-13 MV: 37 MV: 78 MV: 300 10 Yrs. 5.0-13.0 3.8-5.4 12-15 MV: 39 MV: 80 MV: 250 NOTE: * FOR ADULT BLACK MALES AND FEMALES, NORMAL WBC IS 2.9-7.7 K/ML * FOR ADULT BLACK MALES AND FEMALES, NORMAL RBC,HGB, AND HCT IS 5% LESS SOURCE FOR DATA: [employer] DYN 1800 OPERATION MANUAL( AUTOMATED BLOOD COUNTS AND DIFF.) APPENDIX B-3 CL 96.5 mmol/L 98.0-107.0 Below low normal [facility] ([facility] CHRONIC KIDNEY DISEASE STAGING PER NKF: MALE GFR INTERPRETATION: 20-49 YRS: [...] mL/min Normal 80 and above >32 mL/min NormalNORMAL RANGES Age WBC RBC HGB HCT MCV PLT Adult M 4.1-10.9 4.20-6.30 12.0-18.0 37.0-51.0 80-97 140-440 Adult F 4.1-10.9 4.04-5.48 12.0-18.0 37.0-51.0 80-97 140-440 0- 1 Yr 5.0-20.0 3.9-5.9 15-18 MV: 44 MV: 91 MV: 277 2-9 Yr. 6.0-17.0 3.8-5.4 11-13 MV: 37 MV: 78 MV: 300 10 Yrs. 5.0-13.0 3.8-5.4 12-15 MV: 39 MV: 80 MV: 250 NOTE: * FOR ADULT BLACK MALES AND FEMALES, NORMAL WBC IS 2.9-7.7 K/ML * FOR ADULT BLACK MALES AND FEMALES, NORMAL RBC,HGB, AND HCT IS 5% LESS SOURCE FOR DATA: [employer] 1800 OPERATION MANUAL( AUTOMATED BLOOD COUNTS AND DIFF.) APPENDIX B-3 CA 10.0 mg/dL 8.6-10.2 [facility] ([facility] CHRONIC KIDNEY DISEASE STAGING PER NKF: MALE GFR INTERPRETATION: 20-49 YRS: [...] mL/min Normal 80 and above >32 mL/min NormalNORMAL RANGES Age WBC RBC HGB HCT MCV PLT Adult M 4.1-10.9 4.20-6.30 12.0-18.0 37.0-51.0 80-97 140-440 Adult F 4.1-10.9 4.04-5.48 12.0-18.0 37.0-51.0 80-97 140-440 0- 1 Yr 5.0-20.0 3.9-5.9 15-18 MV: 44 MV: 91 MV: 277 2-9 Yr. 6.0-17.0 3.8-5.4 11-13 MV: 37 MV: 78 MV: 300 10 Yrs. 5.0-13.0 3.8-5.4 12-15 MV: 39 MV: 80 MV: 250 NOTE: * FOR ADULT BLACK MALES AND FEMALES, NORMAL WBC IS 2.9-7.7 K/ML * FOR ADULT BLACK MALES AND FEMALES, NORMAL RBC,HGB, AND HCT IS 5% LESS SOURCE FOR DATA: [employer] 1800 OPERATION MANUAL( AUTOMATED BLOOD COUNTS AND DIFF.) APPENDIX B-3 A/G Ratio 1.5 CALC [facility] CHRONIC KIDNEY DISEASE STAGING PER NKF: MALE GFR INTERPRETATION: 20-49 YRS: [...] mL/min Normal 80 and above >32 mL/min NormalNORMAL RANGES Age WBC RBC HGB HCT MCV PLT Adult M 4.1-10.9 4.20-6.30 12.0-18.0 37.0-51.0 80-97 140-440 Adult F 4.1-10.9 4.04-5.48 12.0-18.0 37.0-51.0 80-97 140-440 0- 1 Yr 5.0-20.0 3.9-5.9 15-18 MV: 44 MV: 91 MV: 277 2-9 Yr. 6.0-17.0 3.8-5.4 11-13 MV: 37 MV: 78 MV: 300 10 Yrs. 5.0-13.0 3.8-5.4 12-15 MV: 39 MV: 80 MV: 250 NOTE: * FOR ADULT BLACK MALES AND FEMALES, NORMAL WBC IS 2.9-7.7 K/ML * FOR ADULT BLACK MALES AND FEMALES, NORMAL RBC,HGB, AND HCT IS 5% LESS SOURCE FOR DATA: JAIME DYN 1800 OPERATION MANUAL( AUTOMATED BLOOD COUNTS AND DIFF.) APPENDIX B-3 Alb 3.7 g/dL 3.4-4.8 [facility] ([facility] CHRONIC KIDNEY DISEASE STAGING PER NKF: MALE GFR INTERPRETATION: 20-49 YRS: [...] mL/min Normal 80 and above >32 mL/min NormalNORMAL RANGES Age WBC RBC HGB HCT MCV PLT Adult M 4.1-10.9 4.20-6.30 12.0-18.0 37.0-51.0 80-97 140-440 Adult F 4.1-10.9 4.04-5.48 12.0-18.0 37.0-51.0 80-97 140-440 0- 1 Yr 5.0-20.0 3.9-5.9 15-18 MV: 44 MV: 91 MV: 277 2-9 Yr. 6.0-17.0 3.8-5.4 11-13 MV: 37 MV: 78 MV: 300 10 Yrs. 5.0-13.0 3.8-5.4 12-15 MV: 39 MV: 80 MV: 250 NOTE: * FOR ADULT BLACK MALES AND FEMALES, NORMAL WBC IS 2.9-7.7 K/ML * FOR ADULT BLACK MALES AND FEMALES, NORMAL RBC,HGB, AND HCT IS 5% LESS SOURCE FOR DATA: JAIME DYN 1800 OPERATION MANUAL( AUTOMATED BLOOD COUNTS AND DIFF.) APPENDIX B-3 TP 6.2 g/dL 6.6-8.7 Below low normal [facility] ( [facility] CHRONIC KIDNEY DISEASE STAGING PER NKF: MALE GFR INTERPRETATION: 20-49 YRS: [...] mL/min Normal 80 and above >32 mL/min NormalNORMAL RANGES Age WBC RBC HGB HCT MCV PLT Adult M 4.1-10.9 4.20-6.30 12.0-18.0 37.0-51.0 80-97 140-440 Adult F 4.1-10.9 4.04-5.48 12.0-18.0 37.0-51.0 80-97 140-440 0- 1 Yr 5.0-20.0 3.9-5.9 15-18 MV: 44 MV: 91 MV: 277 2-9 Yr. 6.0-17.0 3.8-5.4 11-13 MV: 37 MV: 78 MV: 300 10 Yrs. 5.0-13.0 3.8-5.4 12-15 MV: 39 MV: 80 MV: 250 NOTE: * FOR ADULT BLACK MALES AND FEMALES, NORMAL WBC IS 2.9-7.7 K/ML * FOR ADULT BLACK MALES AND FEMALES, NORMAL RBC,HGB, AND HCT IS 5% LESS SOURCE FOR DATA: [employer] 1800 OPERATION MANUAL( AUTOMATED BLOOD COUNTS AND DIFF.) APPENDIX B-3 Globulin 2.5 CALC [facility] ([facility] CHRONIC KIDNEY DISEASE STAGING PER NKF: MALE GFR INTERPRETATION: 20-49 YRS: [...] mL/min Normal 80 and above >32 mL/min NormalNORMAL RANGES Age WBC RBC HGB HCT MCV PLT Adult M 4.1-10.9 4.20-6.30 12.0-18.0 37.0-51.0 80-97 140-440 Adult F 4.1-10.9 4.04-5.48 12.0-18.0 37.0-51.0 80-97 140-440 0- 1 Yr 5.0-20.0 3.9-5.9 15-18 MV: 44 MV: 91 MV: 277 2-9 Yr. 6.0-17.0 3.8-5.4 11-13 MV: 37 MV: 78 MV: 300 10 Yrs. 5.0-13.0 3.8-5.4 12-15 MV: 39 MV: 80 MV: 250 NOTE: * FOR ADULT BLACK MALES AND FEMALES, NORMAL WBC IS 2.9-7.7 K/ML * FOR ADULT BLACK MALES AND FEMALES, NORMAL RBC,HGB, AND HCT IS 5% LESS SOURCE FOR DATA: [employer] DYN 1800 OPERATION MANUAL( AUTOMATED BLOOD COUNTS AND DIFF.) APPENDIX B-3 Alp 81.1 U/L 35-129 [facility] ([facility] CHRONIC KIDNEY DISEASE STAGING PER NKF: MALE GFR INTERPRETATION: 20-49 YRS: [...] mL/min Normal 80 and above >32 mL/min NormalNORMAL RANGES Age WBC RBC HGB HCT MCV PLT Adult M 4.1-10.9 4.20-6.30 12.0-18.0 37.0-51.0 80-97 140-440 Adult F 4.1-10.9 4.04-5.48 12.0-18.0 37.0-51.0 80-97 140-440 0- 1 Yr 5.0-20.0 3.9-5.9 15-18 MV: 44 MV: 91 MV: 277 2-9 Yr. 6.0-17.0 3.8-5.4 11-13 MV: 37 MV: 78 MV: 300 10 Yrs. 5.0-13.0 3.8-5.4 12-15 MV: 39 MV: 80 MV: 250 NOTE: * FOR ADULT BLACK MALES AND FEMALES, NORMAL WBC IS 2.9-7.7 K/ML * FOR ADULT BLACK MALES AND FEMALES, NORMAL RBC,HGB, AND HCT IS 5% LESS SOURCE FOR DATA: [employer] 1800 OPERATION MANUAL( AUTOMATED BLOOD COUNTS AND DIFF.) APPENDIX B-3 Ast (Sgot) 16 U/L 0-40 [facility] ([facility] CHRONIC KIDNEY DISEASE STAGING PER NKF: MALE GFR INTERPRETATION: 20-49 YRS: [...] mL/min Normal 80 and above >32 mL/min NormalNORMAL RANGES Age WBC RBC HGB HCT MCV PLT Adult M 4.1-10.9 4.20-6.30 12.0-18.0 37.0-51.0 80-97 140-440 Adult F 4.1-10.9 4.04-5.48 12.0-18.0 37.0-51.0 80-97 140-440 0- 1 Yr 5.0-20.0 3.9-5.9 15-18 MV: 44 MV: 91 MV: 277 2-9 Yr. 6.0-17.0 3.8-5.4 11-13 MV: 37 MV: 78 MV: 300 10 Yrs. 5.0-13.0 3.8-5.4 12-15 MV: 39 MV: 80 MV: 250 NOTE: * FOR ADULT BLACK MALES AND FEMALES, NORMAL WBC IS 2.9-7.7 K/ML * FOR ADULT BLACK MALES AND FEMALES, NORMAL RBC,HGB, AND HCT IS 5% LESS SOURCE FOR DATA: [employer] 1800 OPERATION MANUAL( AUTOMATED BLOOD COUNTS AND DIFF.) APPENDIX B-3 Tbili 0.33 mg/dL 0.0-1.2 [facility] CHRONIC KIDNEY DISEASE STAGING PER NKF: MALE GFR INTERPRETATION: 20-49 YRS: [...] mL/min Normal 80 and above >32 mL/min NormalNORMAL RANGES Age WBC RBC HGB HCT MCV PLT Adult M 4.1-10.9 4.20-6.30 12.0-18.0 37.0-51.0 80-97 140-440 Adult F 4.1-10.9 4.04-5.48 12.0-18.0 37.0-51.0 80-97 140-440 0- 1 Yr 5.0-20.0 3.9-5.9 15-18 MV: 44 MV: 91 MV: 277 2-9 Yr. 6.0-17.0 3.8-5.4 11-13 MV: 37 MV: 78 MV: 300 10 Yrs. 5.0-13.0 3.8-5.4 12-15 MV: 39 MV: 80 MV: 250 NOTE: * FOR ADULT BLACK MALES AND FEMALES, NORMAL WBC IS 2.9-7.7 K/ML * FOR ADULT BLACK MALES AND FEMALES, NORMAL RBC,HGB, AND HCT IS 5% LESS SOURCE FOR DATA: JAIME DYN 1800 OPERATION MANUAL( AUTOMATED BLOOD COUNTS AND DIFF.) APPENDIX B-3 Alt (SGPT) 13 U/L 0-41 [facility] CHRONIC KIDNEY DISEASE STAGING PER NKF: MALE GFR INTERPRETATION: 20-49 YRS: [...] mL/min Normal 80 and above >32 mL/min NormalNORMAL RANGES Age WBC RBC HGB HCT MCV PLT Adult M 4.1-10.9 4.20-6.30 12.0-18.0 37.0-51.0 80-97 140-440 Adult F 4.1-10.9 4.04-5.48 12.0-18.0 37.0-51.0 80-97 140-440 0- 1 Yr 5.0-20.0 3.9-5.9 15-18 MV: 44 MV: 91 MV: 277 2-9 Yr. 6.0-17.0 3.8-5.4 11-13 MV: 37 MV: 78 MV: 300 10 Yrs. 5.0-13.0 3.8-5.4 12-15 MV: 39 MV: 80 MV: 250 NOTE: * FOR ADULT BLACK MALES AND FEMALES, NORMAL WBC IS 2.9-7.7 K/ML * FOR ADULT BLACK MALES AND FEMALES, NORMAL RBC,HGB, AND HCT IS 5% LESS SOURCE FOR DATA: [employer] 1800 OPERATION MANUAL( AUTOMATED BLOOD COUNTS AND DIFF.) APPENDIX B-3 eGFR 49 # [facility] ( [facility] CHRONIC KIDNEY DISEASE STAGING PER NKF: MALE GFR INTERPRETATION: 20-49 YRS: [...] mL/min Normal 80 and above >32 mL/min NormalNORMAL RANGES Age WBC RBC HGB HCT MCV PLT Adult M 4.1-10.9 4.20-6.30 12.0-18.0 37.0-51.0 80-97 140-440 Adult F 4.1-10.9 4.04-5.48 12.0-18.0 37.0-51.0 80-97 140-440 0- 1 Yr 5.0-20.0 3.9-5.9 15-18 MV: 44 MV: 91 MV: 277 2-9 Yr. 6.0-17.0 3.8-5.4 11-13 MV: 37 MV: 78 MV: 300 10 Yrs. 5.0-13.0 3.8-5.4 12-15 MV: 39 MV: 80 MV: 250 NOTE: * FOR ADULT BLACK MALES AND FEMALES, NORMAL WBC IS 2.9-7.7 K/ML * FOR ADULT BLACK MALES AND FEMALES, NORMAL RBC,HGB, AND HCT IS 5% LESS SOURCE FOR DATA: [employer] DYN 1800 OPERATION MANUAL( AUTOMATED BLOOD COUNTS AND DIFF.) APPENDIX B-3 Anion Gap 19 mmol/L [facility] ([facility] CHRONIC KIDNEY DISEASE STAGING PER NKF: MALE GFR INTERPRETATION: 20-49 YRS: [...] mL/min Normal 80 and above >32 mL/min NormalNORMAL RANGES Age WBC RBC HGB HCT MCV PLT Adult M 4.1-10.9 4.20-6.30 12.0-18.0 37.0-51.0 80-97 140-440 Adult F 4.1-10.9 4.04-5.48 12.0-18.0 37.0-51.0 80-97 140-440 0- 1 Yr 5.0-20.0 3.9-5.9 15-18 MV: 44 MV: 91 MV: 277 2-9 Yr. 6.0-17.0 3.8-5.4 11-13 MV: 37 MV: 78 MV: 300 10 Yrs. 5.0-13.0 3.8-5.4 12-15 MV: 39 MV: 80 MV: 250 NOTE: * FOR ADULT BLACK MALES AND FEMALES, NORMAL WBC IS 2.9-7.7 K/ML * FOR ADULT BLACK MALES AND FEMALES, NORMAL RBC,HGB, AND HCT IS 5% LESS SOURCE FOR DATA: JAIME DYN 1800 OPERATION MANUAL( AUTOMATED BLOOD COUNTS AND DIFF.) APPENDIX B-3 Osmolality-Calculated 261.3 [facility] ([facility] CHRONIC KIDNEY DISEASE STAGING PER NKF: MALE GFR INTERPRETATION: 20-49 YRS: [...] mL/min Normal 80 and above >32 mL/min NormalNORMAL RANGES Age WBC RBC HGB HCT MCV PLT Adult M 4.1-10.9 4.20-6.30 12.0-18.0 37.0-51.0 80-97 140-440 Adult F 4.1-10.9 4.04-5.48 12.0-18.0 37.0-51.0 80- 140-440 0- 1 Yr 5.0-20.0 3.9-5.9 15-18 MV: 44 MV: 91 MV: 277 2-9 Yr. 6.0-17.0 3.8-5.4 11-13 MV: 37 MV: 78 MV: 300 10 Yrs. 5.0-13.0 3.8-5.4 12-15 MV: 39 MV: 80 MV: 250 NOTE: * FOR ADULT BLACK MALES AND FEMALES, NORMAL WBC IS 2.9-7.7 K/ML * FOR ADULT BLACK MALES AND FEMALES, NORMAL RBC,HGB, AND HCT IS 5% LESS SOURCE FOR DATA: [employer] DYN 1800 OPERATION MANUAL( AUTOMATED BLOOD COUNTS AND DIFF.) APPENDIX B-3 eGFR Non-Afr. [place] 43 # [facility] ([facility] CHRONIC KIDNEY DISEASE STAGING PER NKF: MALE GFR INTERPRETATION: 20-49 YRS: [...] mL/min Normal 80 and above >32 mL/min NormalNORMAL RANGES Age WBC RBC HGB HCT MCV PLT Adult M 4.1-10.9 4.20-6.30 12.0-18.0 37.0-51.0 80-97 140-440 Adult F 4.1-10.9 4.04-5.48 12.0-18.0 37.0-51.0 80-97 140-440 0- 1 Yr 5.0-20.0 3.9-5.9 15-18 MV: 44 MV: 91 MV: 277 2-9 Yr. 6.0-17.0 3.8-5.4 11-13 MV: 37 MV: 78 MV: 300 10 Yrs. 5.0-13.0 3.8-5.4 12-15 MV: 39 MV: 80 MV: 250 NOTE: * FOR ADULT BLACK MALES AND FEMALES, NORMAL WBC IS 2.9-7.7 K/ML * FOR ADULT BLACK MALES AND FEMALES, NORMAL RBC,HGB, AND HCT IS 5% LESS SOURCE FOR DATA: [employer] 1800 OPERATION MANUAL( AUTOMATED BLOOD COUNTS AND DIFF.) APPENDIX B-3 ID Date Data Source [id number] 12/06/2019 02:09:00 PM EDT [facility] ([facility] Name Value Range Interpretation Code Description Data Tere rce(s) Supporting Document(s) RBC 3.94 10E6/uL 4.20-6.30 Below low normal [facility] ([facility] CHRONIC KIDNEY DISEASE STAGING PER NKF: MALE GFR INTERPRETATION: 20-49 YRS: [...] mL/min Normal 80 and above >32 mL/min NormalNORMAL RANGES Age WBC RBC HGB HCT MCV PLT Adult M 4.1-10.9 4.20-6.30 12.0-18.0 37.0-51.0 80-97 140-440 Adult F 4.1-10.9 4.04-5.48 12.0-18.0 37.0-51.0 80-97 140-440 0- 1 Yr 5.0-20.0 3.9-5.9 15-18 MV: 44 MV: 91 MV: 277 2-9 Yr. 6.0-17.0 3.8-5.4 11-13 MV: 37 MV: 78 MV: 300 10 Yrs. 5.0-13.0 3.8-5.4 12-15 MV: 39 MV: 80 MV: 250 NOTE: * FOR ADULT BLACK MALES AND FEMALES, NORMAL WBC IS 2.9-7.7 K/ML * FOR ADULT BLACK MALES AND FEMALES, NORMAL RBC,HGB, AND HCT IS 5% LESS SOURCE FOR DATA: [employer] 1800 OPERATION MANUAL( AUTOMATED BLOOD COUNTS AND DIFF.) APPENDIX B-3 WBC 10.1 10E3/uL 4.1-10.9 [facility] ([facility] CHRONIC KIDNEY DISEASE STAGING PER NKF: MALE GFR INTERPRETATION: 20-49 YRS: [...] mL/min Normal 80 and above >32 mL/min NormalNORMAL RANGES Age WBC RBC HGB HCT MCV PLT Adult M 4.1-10.9 4.20-6.30 12.0-18.0 37.0-51.0 80-97 140-440 Adult F 4.1-10.9 4.04-5.48 12.0-18.0 37.0-51.0 80-97 140-440 0- 1 Yr 5.0-20.0 3.9-5.9 15-18 MV: 44 MV: 91 MV: 277 2-9 Yr. 6.0-17.0 3.8-5.4 11-13 MV: 37 MV: 78 MV: 300 10 Yrs. 5.0-13.0 3.8-5.4 12-15 MV: 39 MV: 80 MV: 250 NOTE: * FOR ADULT BLACK MALES AND FEMALES, NORMAL WBC IS 2.9-7.7 K/ML * FOR ADULT BLACK MALES AND FEMALES, NORMAL RBC,HGB, AND HCT IS 5% LESS SOURCE FOR DATA: [employer] DYN 1800 OPERATION MANUAL( AUTOMATED BLOOD COUNTS AND DIFF.) APPENDIX B-3 HGB 13.7 g/dL 12.0-18.0 JORGE L ([facility] CHRONIC KIDNEY DISEASE STAGING PER NKF: MALE GFR INTERPRETATION: 20-49 YRS: [...] mL/min Normal 80 and above >32 mL/min NormalNORMAL RANGES Age WBC RBC HGB HCT MCV PLT Adult M 4.1-10.9 4.20-6.30 12.0-18.0 37.0-51.0 80-97 140-440 Adult F 4.1-10.9 4.04-5.48 12.0-18.0 37.0-51.0 80-97 140-440 0- 1 Yr 5.0-20.0 3.9-5.9 15-18 MV: 44 MV: 91 MV: 277 2-9 Yr. 6.0-17.0 3.8-5.4 11-13 MV: 37 MV: 78 MV: 300 10 Yrs. 5.0-13.0 3.8-5.4 12-15 MV: 39 MV: 80 MV: 250 NOTE: * FOR ADULT BLACK MALES AND FEMALES, NORMAL WBC IS 2.9-7.7 K/ML * FOR ADULT BLACK MALES AND FEMALES, NORMAL RBC,HGB, AND HCT IS 5% LESS SOURCE FOR DATA: [employer] 1800 OPERATION MANUAL( AUTOMATED BLOOD COUNTS AND DIFF.) APPENDIX B-3 MCV 100.8 fL 80.0-97.0 Above high normal [facility] ([facility] CHRONIC KIDNEY DISEASE STAGING PER NKF: MALE GFR INTERPRETATION: 20-49 YRS: [...] mL/min Normal 80 and above >32 mL/min NormalNORMAL RANGES Age WBC RBC HGB HCT MCV PLT Adult M 4.1-10.9 4.20-6.30 12.0-18.0 37.0-51.0 80-97 140-440 Adult F 4.1-10.9 4.04-5.48 12.0-18.0 37.0-51.0 80-97 140-440 0- 1 Yr 5.0-20.0 3.9-5.9 15-18 MV: 44 MV: 91 MV: 277 2-9 Yr. 6.0-17.0 3.8-5.4 11-13 MV: 37 MV: 78 MV: 300 10 Yrs. 5.0-13.0 3.8-5.4 12-15 MV: 39 MV: 80 MV: 250 NOTE: * FOR ADULT BLACK MALES AND FEMALES, NORMAL WBC IS 2.9-7.7 K/ML * FOR ADULT BLACK MALES AND FEMALES, NORMAL RBC,HGB, AND HCT IS 5% LESS SOURCE FOR DATA: [employer] DYN 1800 OPERATION MANUAL( AUTOMATED BLOOD COUNTS AND DIFF.) APPENDIX B-3 HCT 39.7 % 37.0-51.0 [facility] ([facility] CHRONIC KIDNEY DISEASE STAGING PER NKF: MALE GFR INTERPRETATION: 20-49 YRS: [...] mL/min Normal 80 and above >32 mL/min NormalNORMAL RANGES Age WBC RBC HGB HCT MCV PLT Adult M 4.1-10.9 4.20-6.30 12.0-18.0 37.0-51.0 80-97 140-440 Adult F 4.1-10.9 4.04-5.48 12.0-18.0 37.0-51.0 80-97 140-440 0- 1 Yr 5.0-20.0 3.9-5.9 15-18 MV: 44 MV: 91 MV: 277 2-9 Yr. 6.0-17.0 3.8-5.4 11-13 MV: 37 MV: 78 MV: 300 10 Yrs. 5.0-13.0 3.8-5.4 12-15 MV: 39 MV: 80 MV: 250 NOTE: * FOR ADULT BLACK MALES AND FEMALES, NORMAL WBC IS 2.9-7.7 K/ML * FOR ADULT BLACK MALES AND FEMALES, NORMAL RBC,HGB, AND HCT IS 5% LESS SOURCE FOR DATA: [employer] 1800 OPERATION MANUAL( AUTOMATED BLOOD COUNTS AND DIFF.) APPENDIX B-3 MCH 34.8 pg 26.0-32.0 Above high normal [facility] ([facility] CHRONIC KIDNEY DISEASE STAGING PER NKF: MALE GFR INTERPRETATION: 20-49 YRS: [...] mL/min Normal 80 and above >32 mL/min NormalNORMAL RANGES Age WBC RBC HGB HCT MCV PLT Adult M 4.1-10.9 4.20-6.30 12.0-18.0 37.0-51.0 80-97 140-440 Adult F 4.1-10.9 4.04-5.48 12.0-18.0 37.0-51.0 80-97 140-440 0- 1 Yr 5.0-20.0 3.9-5.9 15-18 MV: 44 MV: 91 MV: 277 2-9 Yr. 6.0-17.0 3.8-5.4 11-13 MV: 37 MV: 78 MV: 300 10 Yrs. 5.0-13.0 3.8-5.4 12-15 MV: 39 MV: 80 MV: 250 NOTE: * FOR ADULT BLACK MALES AND FEMALES, NORMAL WBC IS 2.9-7.7 K/ML * FOR ADULT BLACK MALES AND FEMALES, NORMAL RBC,HGB, AND HCT IS 5% LESS SOURCE FOR DATA: JAIME DYN 1800 OPERATION MANUAL( AUTOMATED BLOOD COUNTS AND DIFF.) APPENDIX B-3 MCHC 34.5 g/dL 31.0-36.0 [facility] ([facility] CHRONIC KIDNEY DISEASE STAGING PER NKF: MALE GFR INTERPRETATION: 20-49 YRS: [...] mL/min Normal 80 and above >32 mL/min NormalNORMAL RANGES Age WBC RBC HGB HCT MCV PLT Adult M 4.1-10.9 4.20-6.30 12.0-18.0 37.0-51.0 80-97 140-440 Adult F 4.1-10.9 4.04-5.48 12.0-18.0 37.0-51.0 80- 140-440 0- 1 Yr 5.0-20.0 3.9-5.9 15-18 MV: 44 MV: 91 MV: 277 2-9 Yr. 6.0-17.0 3.8-5.4 11-13 MV: 37 MV: 78 MV: 300 10 Yrs. 5.0-13.0 3.8-5.4 12-15 MV: 39 MV: 80 MV: 250 NOTE: * FOR ADULT BLACK MALES AND FEMALES, NORMAL WBC IS 2.9-7.7 K/ML * FOR ADULT BLACK MALES AND FEMALES, NORMAL RBC,HGB, AND HCT IS 5% LESS SOURCE FOR DATA: JAIME DYN 1800 OPERATION MANUAL( AUTOMATED BLOOD COUNTS AND DIFF.) APPENDIX B-3 Lym% 15.2 % 10.0-58.5 [facility] ([facility] CHRONIC KIDNEY DISEASE STAGING PER NKF: MALE GFR INTERPRETATION: 20-49 YRS: [...] mL/min Normal 80 and above >32 mL/min NormalNORMAL RANGES Age WBC RBC HGB HCT MCV PLT Adult M 4.1-10.9 4.20-6.30 12.0-18.0 37.0-51.0 80-97 140-440 Adult F 4.1-10.9 4.04-5.48 12.0-18.0 37.0-51.0 80-97 140-440 0- 1 Yr 5.0-20.0 3.9-5.9 15-18 MV: 44 MV: 91 MV: 277 2-9 Yr. 6.0-17.0 3.8-5.4 11-13 MV: 37 MV: 78 MV: 300 10 Yrs. 5.0-13.0 3.8-5.4 12-15 MV: 39 MV: 80 MV: 250 NOTE: * FOR ADULT BLACK MALES AND FEMALES, NORMAL WBC IS 2.9-7.7 K/ML * FOR ADULT BLACK MALES AND FEMALES, NORMAL RBC,HGB, AND HCT IS 5% LESS SOURCE FOR DATA: [employer] 1800 OPERATION MANUAL( AUTOMATED BLOOD COUNTS AND DIFF.) APPENDIX B-3 PLT 407 10E3/uL 140-440 [facility] ([facility] CHRONIC KIDNEY DISEASE STAGING PER NKF: MALE GFR INTERPRETATION: 20-49 YRS: [...] mL/min Normal 80 and above >32 mL/min NormalNORMAL RANGES Age WBC RBC HGB HCT MCV PLT Adult M 4.1-10.9 4.20-6.30 12.0-18.0 37.0-51.0 80-97 140-440 Adult F 4.1-10.9 4.04-5.48 12.0-18.0 37.0-51.0 80-97 140-440 0- 1 Yr 5.0-20.0 3.9-5.9 15-18 MV: 44 MV: 91 MV: 277 2-9 Yr. 6.0-17.0 3.8-5.4 11-13 MV: 37 MV: 78 MV: 300 10 Yrs. 5.0-13.0 3.8-5.4 12-15 MV: 39 MV: 80 MV: 250 NOTE: * FOR ADULT BLACK MALES AND FEMALES, NORMAL WBC IS 2.9-7.7 K/ML * FOR ADULT BLACK MALES AND FEMALES, NORMAL RBC,HGB, AND HCT IS 5% LESS SOURCE FOR DATA: [employer] 1800 OPERATION MANUAL( AUTOMATED BLOOD COUNTS AND DIFF.) APPENDIX B-3 RDW-CV 12.7 % 11.5-14.5 [facility] ([facility] CHRONIC KIDNEY DISEASE STAGING PER NKF: MALE GFR INTERPRETATION: 20-49 YRS: [...] mL/min Normal 80 and above >32 mL/min NormalNORMAL RANGES Age WBC RBC HGB HCT MCV PLT Adult M 4.1-10.9 4.20-6.30 12.0-18.0 37.0-51.0 80-97 140-440 Adult F 4.1-10.9 4.04-5.48 12.0-18.0 37.0-51.0 80-97 140-440 0- 1 Yr 5.0-20.0 3.9-5.9 15-18 MV: 44 MV: 91 MV: 277 2-9 Yr. 6.0-17.0 3.8-5.4 11-13 MV: 37 MV: 78 MV: 300 10 Yrs. 5.0-13.0 3.8-5.4 12-15 MV: 39 MV: 80 MV: 250 NOTE: * FOR ADULT BLACK MALES AND FEMALES, NORMAL WBC IS 2.9-7.7 K/ML * FOR ADULT BLACK MALES AND FEMALES, NORMAL RBC,HGB, AND HCT IS 5% LESS SOURCE FOR DATA: [employer] 1800 OPERATION MANUAL( AUTOMATED BLOOD COUNTS AND DIFF.) APPENDIX B-3 Neut% 72.3 % 37.0-92.0 [facility] ([facility] CHRONIC KIDNEY DISEASE STAGING PER NKF: MALE GFR INTERPRETATION: 20-49 YRS: [...] mL/min Normal 80 and above >32 mL/min NormalNORMAL RANGES Age WBC RBC HGB HCT MCV PLT Adult M 4.1-10.9 4.20-6.30 12.0-18.0 37.0-51.0 80-97 140-440 Adult F 4.1-10.9 4.04-5.48 12.0-18.0 37.0-51.0 80-97 140-440 0- 1 Yr 5.0-20.0 3.9-5.9 15-18 MV: 44 MV: 91 MV: 277 2-9 Yr. 6.0-17.0 3.8-5.4 11-13 MV: 37 MV: 78 MV: 300 10 Yrs. 5.0-13.0 3.8-5.4 12-15 MV: 39 MV: 80 MV: 250 NOTE: * FOR ADULT BLACK MALES AND FEMALES, NORMAL WBC IS 2.9-7.7 K/ML * FOR ADULT BLACK MALES AND FEMALES, NORMAL RBC,HGB, AND HCT IS 5% LESS SOURCE FOR DATA: [employer] DYN 1800 OPERATION MANUAL( AUTOMATED BLOOD COUNTS AND DIFF.) APPENDIX B-3 MXD% 12.5 % 0.1-24.0 JORGE L ([facility] CHRONIC KIDNEY DISEASE STAGING PER NKF: MALE GFR INTERPRETATION: 20-49 YRS: [...] mL/min Normal 80 and above >32 mL/min NormalNORMAL RANGES Age WBC RBC HGB HCT MCV PLT Adult M 4.1-10.9 4.20-6.30 12.0-18.0 37.0-51.0 80-97 140-440 Adult F 4.1-10.9 4.04-5.48 12.0-18.0 37.0-51.0 80-97 140-440 0- 1 Yr 5.0-20.0 3.9-5.9 15-18 MV: 44 MV: 91 MV: 277 2-9 Yr. 6.0-17.0 3.8-5.4 11-13 MV: 37 MV: 78 MV: 300 10 Yrs. 5.0-13.0 3.8-5.4 12-15 MV: 39 MV: 80 MV: 250 NOTE: * FOR ADULT BLACK MALES AND FEMALES, NORMAL WBC IS 2.9-7.7 K/ML * FOR ADULT BLACK MALES AND FEMALES, NORMAL RBC,HGB, AND HCT IS 5% LESS SOURCE FOR DATA: [employer] DYN 1800 OPERATION MANUAL( AUTOMATED BLOOD COUNTS AND DIFF.) APPENDIX B-3 Lym# 1.5 10E3/uL 0.6-4.1 [facility] ([facility] CHRONIC KIDNEY DISEASE STAGING PER NKF: MALE GFR INTERPRETATION: 20-49 YRS: [...] mL/min Normal 80 and above >32 mL/min NormalNORMAL RANGES Age WBC RBC HGB HCT MCV PLT Adult M 4.1-10.9 4.20-6.30 12.0-18.0 37.0-51.0 80-97 140-440 Adult F 4.1-10.9 4.04-5.48 12.0-18.0 37.0-51.0 80-97 140-440 0- 1 Yr 5.0-20.0 3.9-5.9 15-18 MV: 44 MV: 91 MV: 277 2-9 Yr. 6.0-17.0 3.8-5.4 11-13 MV: 37 MV: 78 MV: 300 10 Yrs. 5.0-13.0 3.8-5.4 12-15 MV: 39 MV: 80 MV: 250 NOTE: * FOR ADULT BLACK MALES AND FEMALES, NORMAL WBC IS 2.9-7.7 K/ML * FOR ADULT BLACK MALES AND FEMALES, NORMAL RBC,HGB, AND HCT IS 5% LESS SOURCE FOR DATA: [employer] 1800 OPERATION MANUAL( AUTOMATED BLOOD COUNTS AND DIFF.) APPENDIX B-3 MPV 9.6 fL 9.0-13.0 [facility] ([facility] CHRONIC KIDNEY DISEASE STAGING PER NKF: MALE GFR INTERPRETATION: 20-49 YRS: [...] mL/min Normal 80 and above >32 mL/min NormalNORMAL RANGES Age WBC RBC HGB HCT MCV PLT Adult M 4.1-10.9 4.20-6.30 12.0-18.0 37.0-51.0 80-97 140-440 Adult F 4.1-10.9 4.04-5.48 12.0-18.0 37.0-51.0 80-97 140-440 0- 1 Yr 5.0-20.0 3.9-5.9 15-18 MV: 44 MV: 91 MV: 277 2-9 Yr. 6.0-17.0 3.8-5.4 11-13 MV: 37 MV: 78 MV: 300 10 Yrs. 5.0-13.0 3.8-5.4 12-15 MV: 39 MV: 80 MV: 250 NOTE: * FOR ADULT BLACK MALES AND FEMALES, NORMAL WBC IS 2.9-7.7 K/ML * FOR ADULT BLACK MALES AND FEMALES, NORMAL RBC,HGB, AND HCT IS 5% LESS SOURCE FOR DATA: [employer] 1800 OPERATION MANUAL( AUTOMATED BLOOD COUNTS AND DIFF.) APPENDIX B-3 Neut# 7.3 % 2.0-7.8 [facility] ([facility] CHRONIC KIDNEY DISEASE STAGING PER NKF: MALE GFR INTERPRETATION: 20-49 YRS: [...] mL/min Normal 80 and above >32 mL/min NormalNORMAL RANGES Age WBC RBC HGB HCT MCV PLT Adult M 4.1-10.9 4.20-6.30 12.0-18.0 37.0-51.0 80-97 140-440 Adult F 4.1-10.9 4.04-5.48 12.0-18.0 37.0-51.0 80-97 140-440 0- 1 Yr 5.0-20.0 3.9-5.9 15-18 MV: 44 MV: 91 MV: 277 2-9 Yr. 6.0-17.0 3.8-5.4 11-13 MV: 37 MV: 78 MV: 300 10 Yrs. 5.0-13.0 3.8-5.4 12-15 MV: 39 MV: 80 MV: 250 NOTE: * FOR ADULT BLACK MALES AND FEMALES, NORMAL WBC IS 2.9-7.7 K/ML * FOR ADULT BLACK MALES AND FEMALES, NORMAL RBC,HGB, AND HCT IS 5% LESS SOURCE FOR DATA: JAIME DYN 1800 OPERATION MANUAL( AUTOMATED BLOOD COUNTS AND DIFF.) APPENDIX B-3 MXD# 1.3 10E3/uL 0.0-1.8 [facility] ([facility] CHRONIC KIDNEY DISEASE STAGING PER NKF: MALE GFR INTERPRETATION: 20-49 YRS: [...] mL/min Normal 80 and above >32 mL/min NormalNORMAL RANGES Age WBC RBC HGB HCT MCV PLT Adult M 4.1-10.9 4.20-6.30 12.0-18.0 37.0-51.0 80-97 140-440 Adult F 4.1-10.9 4.04-5.48 12.0-18.0 37.0-51.0 80-97 140-440 0- 1 Yr 5.0-20.0 3.9-5.9 15-18 MV: 44 MV: 91 MV: 277 2-9 Yr. 6.0-17.0 3.8-5.4 11-13 MV: 37 MV: 78 MV: 300 10 Yrs. 5.0-13.0 3.8-5.4 12-15 MV: 39 MV: 80 MV: 250 NOTE: * FOR ADULT BLACK MALES AND FEMALES, NORMAL WBC IS 2.9-7.7 K/ML * FOR ADULT BLACK MALES AND FEMALES, NORMAL RBC,HGB, AND HCT IS 5% LESS SOURCE FOR DATA: [employer] 1800 OPERATION MANUAL( AUTOMATED BLOOD COUNTS AND DIFF.) APPENDIX B-3 ID Date Data Source [id number] 11/09/2019 01:59:00 PM EDT [facility] ([facility] Name Value Range Interpretation Code Description Data Tere rce(s) Supporting Document(s) Respiratory Panel Laboratory test result [facility] ([facility] This respiratory PCR panel detects Influ lance A H1, H3 and 2009 H1 viruses, Influenza B virus, Resp iratory syncytial virus, Human metapneumovirus, Parainfluenza virus 1, 2, 3 and 4, Adenovirus, Rhinovirus/Enterovirus, Coronavirus HKU1, NL63, OC43 and 229E, Bordetella pertussis, Mycoplasma pneumoniae and Chlamydia pneumoniae. NEGATIVE by MULTIPLEXED NUCLEIC ACID PCR ID Date Data Source [id number] 11/09/2019 12:56:00 PM EDT [facility] ([facility] Name Value Range Interpretation Code Description Data Tere rce(s) Supporting Document(s) Thyrotropin [Units/volume] in Serum or Plasma 1.670 uIU/ML 0. 358-3.740 Normal (applies to non-numeric results) [facility] By: Y By: Y Magnesium [Mass/volume] in Serum or Plasma 1.6 mg/dL 1.8-2.4 Belo w low normal [facility] ([facility] By: Y By: Y Thyroxine (T4) free [Mass/volume] in Serum or Plasma 1.64 ng/dL 0.76-1.46 Above high normal [facility] ([facility] ) By: Y By: Y ID Date Data Source [id number] 11/09/2019 12:56:00 PM EDT [facility] ([facility] Name Value Range Interpretation Code Description Data Tere rce(s) Supporting Document(s) Glucose, Fasting 113 mg/dL 70-100 Above high normal M [facility] ([facility] Blood Urea Nitrogen 35 mg/dL 7-18 Above high normal [facility] ([facility] Potassium Serum 3.6 meq/L 3.5-5.1 Normal (applies to non-numeric results) [facility] ([facility] Creatinine For GFR 1.57 mg/dL 0.55-1.30 Above high normal [facility] ([facility] Glomerular Filtration Rate 33.8 Below low normal [facility] ([facility] <content>Units are mL/min/1.73 m2</content>
<content></content>
<content>Chronic Kidney Disease Staging per NKF:</content>
<content></content>
<content>Stage I & II GFR >=60 Normal to Mildly Decreased</content>
<content>Stage III GFR 30- 59 Moderately Decreased</content>
<content>Stage IV GFR 15-29 Severely Decreased</content>
<content>Stage V GFR <15 Very Little GFR Left</content>
<content>ESRD GFR <15 on END USER SUPPORT SPECIALIST</content>
<content></content> Sodium Level 131 meq/L 136-145 Below low normal [facility] ([facility] Carbon Dioxide Level 22 meq/L 21-32 Normal (applies to non-num racquel results) [facility] ([facility] Anion Gap 10 meq/L 8-16 Normal (applies to non-numeric resul ts) [facility] ([facility] Chloride Level 99 meq/L 98-107 Normal (applies to non-numeric r esults) [facility] ([facility] Calcium Level 10.7 mg/dL 8.8-10.2 Above high normal [facility] ([facility] ID Date Data Source [id number] 11/09/2019 12:56:00 PM EDT [facility] ([facility] Name Value Range Interpretation Code Description Data Tere rce(s) Supporting Document(s) MB/CK Relative Index 2.29 Normal (applies to non-num racquel results) [facility] <content>DIAGNOSIS CRITERIA</content>
<content>MMB ng/ml Relative Index (RI)</content>
<content>NON-AMI < or = 5 N/A</content>
<content>WOOD ZONE > 5 < or = 4</content>
<content>AMI > 5 > 4</content>
<content></content> CK-MB Value Mass 1.9 ng/mL Normal (applies to non-numeric results) [facility] CPK Creatine Phosphokinase 83 U/L 26-192 Urszula l (applies to non-numeric results) [facility] ) Troponin I Laboratory test result Normal (applies to non-n umeric results) [facility] ([facility] <content>Troponin I Reference Interval f or Siemens [place] LOCI:</content>
<content></content>
<content>99th Percentile= 0.00-0.045 ng/ml</content>
<content></content>
<content>Risk Stratification:</content>
<content><= 0.10 ng/ml Decreased Risk for Adverse Clinical</content>
<content>Events.</content>
<content>0.10-1.50 ng/ml Increased Risk for Adverse Clinical</content>
<content>Events. Evaluation of additional</content>
<content>criterion and/or repeat testing in 2-6</content>
<content>hours is suggested to rule out myocardial</content>
<content>damage.</content>
<content>>= 1.50 ng/ml Indicative of Myocardial Injury.</content>
<content></content> ID Date Data Source [id number] 11/09/2019 12:56:00 PM EDT [facility] ([facility] Name Value Range Interpretation Code Description Data Tere rce(s) Supporting Document(s) aPTT in Platelet poor plasma by Coagulation assay 27.1 s 25.0-38.4 Normal (applies to non-numeric results) [facility] ID Date Data Source [id number] 11/09/2019 12:56:00 PM EDT [facility] ([facility] Name Value Range Interpretation Code Description Data Tere rce(s) Supporting Document(s) Prothrombin Time 13.0 s 11.8-14.0 Normal (applies to non-numeric results) [facility] ([facility] Inr 1.01 Normal (applies to non-numeric resul ts) [facility] THERAPUTIC HUMAN INR VALUES INDICATIONS NORMAL RANGES PROPHYLAXIS/TREATMENT OF: VENOUS THROMBOSIS 2.0-3.0 PULMONARY EMBOLISM 2.0-3.0 PREVENTION OF SYSTEMIC EMBOLISM FROM: TISSUE HEART VALVES 2.0-3.0 ACUTE MYOCARDIAL INFARCTION 2.0-3.0 VALVULAR HEART DISEASE 2.0-3.0 ATRIAL FIBRILLATION 2.0-3.0 MECHANICAL VALVES(HIGH RISK) 2.5-3.5 RECURRENT MYOCARDIAL INFARCTION 2.5-3.5 ID Date Data Source [id number] 11/09/2019 12:56:00 PM EDT [facility] ([facility] Name Value Range Interpretation Code Description Data Tere rce(s) Supporting Document(s) Red Blood Count 4.19 10 4.00-5.40 Normal (applies to non-numeric results) [facility] ([facility] White Blood Count 13.8 10 4.0-10.0 Above high normal [facility] ([facility] Hemoglobin 15.0 g/dL 12.0-15.5 Normal (applies to non-numeric resul ts) [facility] ([facility] Mean Corpuscular Volume 103.1 fl 80.0-96.0 Above high normal [facility] ([facility] Hematocrit 43.2 % 36.0-47.0 Normal (applies to non-numeric resul ts) [facility] ([facility] Red Cell Distribution Width 12.5 % 11.5-14.5 Norm al (applies to non-numeric results) [facility] ([facility] ) Mean Corpuscular Hemoglobin 35.8 pg 27.0-33.0 Above high normal [facility] ([facility] Mean Corpuscular HGB Conc 34.7 g/dL 32.0-36.5 Normal (applies to non-numeric results) [facility] ([facility] ) Platelet Count, Automated 309 10 150-450 Normal (applies to non-numeric results) [facility] ([facility] ) Lymph % 13.9 % 24.0-44.0 Below low normal [facility] ( [facility] Neutrophils % 75.7 % 36.0-66.0 Above high normal [facility] ([facility] Immature Granulocyte % 1.6 % 0-3.0 Normal (applies to non-n umeric results) [facility] ([facility] Eos % 0.4 % 0.0-3.0 Normal (applies to non-numeric resul ts) [facility] ([facility] Baso % 0.5 % 0.0-1.0 Normal (applies to non-numeric resul ts) [facility] ([facility] [place] % 7.9 % 0.0-5.0 Above high normal [facility] ([facility] Neutrophils # 10.4 10 1.5-8.5 Above high normal [facility] ([facility] Nucleated Red Blood Cell % 0.0 % 0-0 Normal (applies to n on-numeric results) [facility] ([facility] Lymph # 1.9 10 1.5-5.0 Normal (applies to non-numeric resul ts) [facility] ([facility] [place] # 1.1 10 0.0-0.8 Above high normal [facility] ([facility] Eos # 0.1 10 0.0-0.5 Normal (applies to non-numeric resul ts) [facility] ([facility] Baso # 0.1 10 0.0-0.2 Normal (applies to non-numeric resul ts) [facility] ([facility] ID Date Data Source [id number] 11/09/2019 12:44:00 PM EDT [facility] ([facility] Name Value Range Interpretation Code Description Data Tere rce(s) Supporting Document(s) Glucose [Mass/volume] in Capillary blood by Glucometer 111 mg/dL 83-110 Above high normal [facility] ([facility] Procedure Social History Code Duration Value Status Description Data Source(s ) Smoking 06/20/2020 12:00:00 AM EDT Patient has never smoked co mpleted Patient has never smoked [facility] ([facility]) Vital Signs ID Date Data Source [id number] Name Value Range Interpretation Code Description Data Source(s) Oxygen saturation in Arterial blood by Pulse oximetry 98 % 98 % [facility] ([facility] Body mass index (BMI) [Ratio] 26.8 kg/m2 26.8 k g/m2 [facility] ([facility] [place] body weight 105 [lb_av] 105 [lb_av] [facility] ([facility] Body weight 142.00 [lb_av] 142.00 [lb_av] [facility] ([facility] Body height 61 [in_i] 61 [in_i] [facility] ([facility] 5'1" Respiratory rate 16 /min 16 /min [facility] ( [facility] Heart rate 87 /min 87 /min MEDENT ([facility] Body temperature 97.1 [degF] 97.1 [degF] MEDENT ([facility] Diastolic blood pressure 54 mm[Hg] 54 mm[Hg] MEDENT ([facility] Systolic blood pressure 92 mm[Hg] 92 mm[Hg] M EDENT ([facility] Body weight 144.00 [lb_av] 144.00 [lb_av] MEDEN T ([facility] Body height 61 [in_i] 61 [in_i] MEDENT ([facility] 5'1" Respiratory rate 16 /min 16 /min MEDENT ( [facility] Heart rate 103 /min 103 /min MEDENT ([facility] Body temperature 97.8 [degF] 97.8 [degF] MEDENT ([facility] Diastolic blood pressure 64 mm[Hg] 64 mm[Hg] MEDENT ([facility] Systolic blood pressure 102 mm[Hg] 102 mm[Hg] M EDENT ([facility] Oxygen saturation in Arterial blood by Pulse oximetry 99 % 99 % MEDENT ([facility] Body mass index (BMI) [Ratio] 27.2 kg/m2 27.2 k g/m2 MEDENT ([facility] [place] body weight 105 [lb_av] 105 [lb_av] MEDEN T ([facility] Oxygen saturation in Arterial blood by Pulse oximetry 98 % 98 % MEDENT ([facility] Body mass index (BMI) [Ratio] 26.8 kg/m2 26.8 k g/m2 MEDENT ([facility] [place] body weight 105 [lb_av] 105 [lb_av] MEDEN T ([facility] Body weight 142.00 [lb_av] 142.00 [lb_av] MEDEN T ([facility] Body height 61 [in_i] 61 [in_i] MEDENT ([facility] 5'1" Respiratory rate 16 /min 16 /min MEDENT ( [facility] Heart rate 100 /min 100 /min MEDENT ([facility] Body temperature 97.3 [degF] 97.3 [degF] MEDENT ([facility] Diastolic blood pressure 58 mm[Hg] 58 mm[Hg] MEDENT ([facility] Systolic blood pressure 96 mm[Hg] 96 mm[Hg] M EDENT ([facility] Body mass index (BMI) [Ratio] 27.8 kg/m2 27.8 k g/m2 MEDENT ([facility] Body weight 147.00 [lb_av] 147.00 [lb_av] MEDEN T ([facility] Body height 61 [in_i] 61 [in_i] MEDENT ([facility] 5'1" Body temperature 96.8 [degF] 96.8 [degF] MEDENT ([facility]) Oxygen saturation in Arterial blood by Pulse oximetry 98 % 98 % MEDENT ([facility] Body mass index (BMI) [Ratio] 28.5 kg/m2 28.5 k g/m2 MEDENT ([facility] [place] body weight 105 [lb_av] 105 [lb_av] MEDEN T ([facility] Body weight 151.00 [lb_av] 151.00 [lb_av] MEDEN T ([facility] Body height 61 [in_i] 61 [in_i] MEDENT ([facility] 5'1" Respiratory rate 16 /min 16 /min MEDENT ( [facility] Heart rate 86 /min 86 /min MEDENT ([facility] Body temperature 97.4 [degF] 97.4 [degF] MEDENT ([facility] Diastolic blood pressure 54 mm[Hg] 54 mm[Hg] MEDENT ([facility] Systolic blood pressure 104 mm[Hg] 104 mm[Hg] M EDENT ([facility] Oxygen saturation in Arterial blood by Pulse oximetry 98 % 98 % MEDENT ([facility] Body mass index (BMI) [Ratio] 29.3 kg/m2 29.3 k g/m2 MEDENT ([facility] [place] body weight 105 [lb_av] 105 [lb_av] MEDEN T ([facility] Body weight 155.00 [lb_av] 155.00 [lb_av] MEDEN T ([facility] Body height 61 [in_i] 61 [in_i] MEDENT ([facility] 5'1" Respiratory rate 16 /min 16 /min MEDENT ( [facility] Heart rate 91 /min 91 /min MEDENT ([facility] Body temperature 97.3 [degF] 97.3 [degF] MEDENT ([facility] Diastolic blood pressure 64 mm[Hg] 64 mm[Hg] MEDENT ([facility] Systolic blood pressure 110 mm[Hg] 110 mm[Hg] M EDENT ([facility] Body weight 156.00 [lb_av] 156.00 [lb_av] MEDEN T ([facility] Body height 61 [in_i] 61 [in_i] MEDENT ([facility] 5'1" Respiratory rate 18 /min 18 /min MEDENT ( [facility] Heart rate 100 /min 100 /min MEDENT ([facility] Body temperature 97.6 [degF] 97.6 [degF] MEDENT ([facility] Diastolic blood pressure 74 mm[Hg] 74 mm[Hg] MEDENT ([facility] Systolic blood pressure 128 mm[Hg] 128 mm[Hg] M EDENT ([facility] Oxygen saturation in Arterial blood by Pulse oximetry 98 % 98 % MEDENT ([facility] Body mass index (BMI) [Ratio] 29.5 kg/m2 29.5 k g/m2 MEDENT ([facility] Oxygen saturation in Arterial blood by Pulse oximetry 98 % 98 % MEDENT ([facility] Body mass index (BMI) [Ratio] 30.0 kg/m2 30.0 k g/m2 MEDENT ([facility] Body weight 159.00 [lb_av] 159.00 [lb_av] MEDEN T ([facility] Body height 61 [in_i] 61 [in_i] MEDENT ([facility] 5'1" Respiratory rate 20 /min 20 /min MEDENT ( [facility] Heart rate 100 /min 100 /min MEDENT ([facility] Body temperature 98.6 [degF] 98.6 [degF] MEDENT ([facility] Diastolic blood pressure 80 mm[Hg] 80 mm[Hg] MEDENT ([facility] Systolic blood pressure 136 mm[Hg] 136 mm[Hg] M EDENT ([facility] Oxygen saturation in Arterial blood by Pulse oximetry 96 % 96 % MEDENT ([facility] Body mass index (BMI) [Ratio] 30.0 kg/m2 30.0 k g/m2 MEDENT ([facility] Body weight 159.00 [lb_av] 159.00 [lb_av] MEDEN T ([facility] Body height 61 [in_i] 61 [in_i] MEDENT ([facility] 5'1" Respiratory rate 16 /min 16 /min MEDENT ( [facility] Heart rate 106 /min 106 /min MEDENT ([facility] Body temperature 97.8 [degF] 97.8 [degF] MEDENT ([facility] Diastolic blood pressure 64 mm[Hg] 64 mm[Hg] MEDENT ([facility] Systolic blood pressure 114 mm[Hg] 114 mm[Hg] M EDENT ([facility] Body mass index (BMI) [Ratio] 30.2 kg/m2 30.2 k g/m2 MEDENT ([facility]) Body height 61 [in_i] 61 [in_i] MEDENT ([facility]) 5'1" Body weight 160.00 [lb_av] 160.00 [lb_av] MEDEN T ([facility]) Body temperature 98.5 [degF] 98.5 [degF] MEDENT ([facility]) Oxygen saturation in Arterial blood by Pulse oximetry 98 % 98 % MEDENT ([facility], [facility]) Respiratory rate 18 /min 18 /min MEDENT ( [facility], [facility]) Heart rate 97 /min 97 /min MEDENT ([facility], [facility]) Diastolic blood pressure 85 mm[Hg] 85 mm[Hg] MEDENT ([facility], [facility]) Systolic blood pressure 141 mm[Hg] 141 mm[Hg] M BARNEY ([facility], [facility]) Oxygen saturation in Arterial blood by Pulse oximetry 97 % 97 % MEDNESHA ([facility] Body mass index (BMI) [Ratio] 31.4 kg/m2 31.4 k g/m2 MEDENT ([facility] Body weight 166.00 [lb_av] 166.00 [lb_av] ARNALDOEN T ([facility] Body height 61 [in_i] 61 [in_i] JORGE L ([facility] 5'1" Respiratory rate 18 /min 18 /min MEDNESHA ( [facility] Heart rate 90 /min 90 /min MEDNESHA ([facility] Body temperature 97.5 [degF] 97.5 [degF] MEDENT ([facility] Diastolic blood pressure 80 mm[Hg] 80 mm[Hg] MEDNESHA ([facility] Systolic blood pressure 110 mm[Hg] 110 mm[Hg] M BARNEY ([facility]
[2020-10-24 13:44] LABS: BASO # 0.1 10^3/uL (0.0-0.2); BASO % 0.8 % (0.0-1.0); EOS # 0.2 10^3/uL (0.0-0.5); EOS % 2.4 % (0.0-3.0); HEMATOCRIT 37.3 % (36.0-47.0); HEMOGLOBIN 12.5 g/dl (12.0-15.5); LYMPH % 11.1 % (24.0-44.0); MEAN CORPUSCULAR HEMOGLOBIN 33.9 pg (27.0-33.0); MEAN CORPUSCULAR HGB CONC 33.5 g/dl (32.0-36.5); MEAN CORPUSCULAR VOLUME 101.1 fl (80.0-96.0); MONO # 0.8 10^3/uL (0.0-0.8); MONO % 9.7 % (2.0-8.0); NEUTROPHILS # 6.5 10^3/uL (1.5-8.5); NEUTROPHILS % 75.5 % (36.0-66.0); PLATELET COUNT, AUTOMATED 270 10^3/uL (150-450); RED BLOOD COUNT 3.69 10^6/uL (4.00-5.40); WHITE BLOOD COUNT 8.6 10^3/uL (4.0-10.0)
[2020-10-24 14:20] LABS: CREATININE FOR GFR 2.21 MG/DL (0.55-1.30); GLOMERULAR FILTRATION RATE 22.7 (>32); POTASSIUM SERUM 3.5 MEQ/L (3.5-5.1)
[2020-10-24 14:21] LABS: ALBUMIN 2.9 GM/DL (3.2-5.2); BILIRUBIN,TOTAL 0.6 MG/DL (0.2-1.0); CALCIUM LEVEL 9.7 MG/DL (8.8-10.2); FREE T4 1.13 NG/DL (0.76-1.46); THYROID STIMULATING HORMONE 0.155 uIU/ML (0.358-3.740); TOTAL PROTEIN 6.5 GM/DL (6.4-8.2)
[2020-10-24] MEDS: NS 1,000 ML IV SCH (14:22)
[2020-10-24] MEDS ORDERED: METOCLOPRAMIDE INJ 10MG/2ML VIAL (J2765 PER 1) IV ONE (14:45)
[2020-10-24] MEDS ORDERED: NS 1,000 ML IV ONE (14:45)
[2020-10-24] MEDS ORDERED: OMEP-221 PO (15:45)
[2020-10-24] MEDS ORDERED: ALBUTEROL 90 MCG/ACT 8GM HFA INHALER INH PRN (15:45)
--- OUTSIDE RECORDS SUMMARY | 2020-10-24 15:50 | CCD ---
Author Author [facility] Organization [facility] Address Unknown Phone Unavailable Care Team Providers Care Dimpling Machine Operator Name Role Phone Geraldo Watt Unavailable Unavailable [...] D Evan PA Unavailable Unavailable Shukri, D Evna PA Unavailable Unavailable Shukri, D Evan PA [...] is protected by Article 27-F of the [facility] Public Health law. If you continue you may have access to information: Regarding HIV / AIDS; Provided by facilities licensed or operated by the [facility] Office of Mental Health; or Provided by the [facility] Office for People With Developmental Disabilities. If such information is present, then the following [facility] mandated warning applies: This information has been [...] law may result in a fine or alf sentence or both. A general authorization for [...] Male Problem [facility] ([facility]) Unknown Female Problem MED[facility] ([facility]) Encounters Encounter Providers Location Date Indications Data Source(s ) Outpatient Attender: Evan MCDONNELL [facility] 01:00:00 PM EST [facility] Outpatient Attender: Evan MCDONNELL [facility] 12:30:00 PM EST [facility] ([facility] Outpatient Attender: Evan MCDONNELL [facility] 01/2020 02:00:00 PM EST [facility] ([facility] OFFICE OUTPATIENT NEW 30 MINUTES Attender: RACHELLE MCDONNELL Phys ical Therapy 06/20/2020 01:00:00 PM EDT MEDENT ([facility]) Outpatient Attender: Evan MCDONNELL [facility] 02:20:00 PM EDT [facility] ([facility] Outpatient Attender: Evan MCDONNELL [facility] 03:00:00 PM EDT [facility] ([facility] Outpatient Attender: Evan MCDONNELL [facility] 12/2019 02:20:00 PM EDT [facility] ([facility] Outpatient Attender: Evan MCDONNELL [facility] 02:20:00 PM EDT [facility] ([facility] Outpatient Attender: Evan MCDONNLEL [facility] 01/2020 01:30:00 PM EDT [facility] ([facility] Outpatient Attender: Evan VALLECILLO eferrer: Evan Watt PAConsultant: Evan MCDONNELL 12/06/2019 11:24:00 AM EDT - 12/06/2019 11:34: 00 AM EDT [facility] Patient discharged. Outpatient Attender: Evan MCDONNELL [facility] 01/2020 09:00:00 AM EST MED[facility] ([facility] Immunizations Vaccine Date Status Description Data Source(s) [...] MOUTH EVERY DAY SOLD: 09/10/2020 [facility] Benazepril hydrochloride 20 MG / Hydroch lorothiazide 12.5 MG Oral Tablet [Lotensin HCT] Lotensin HCT 09/06/2020 12:00:00 AM EST ORAL active MEDENT ([facility] ) buspirone hydrochloride 5 MG Oral Tablet BUSPIRONE HCL 08/01/2020 12:00:00 AM EST tablet 30 TAKE ONE TABLET BY MOUTH THREE TIMES A DAY NEEDED FOR ANXIETY TAKE ONE TABLET BY MOUTH THREE TIMES A DAY NEEDED F OR ANXIETY SOLD: 08/01/2020 [facility] buspirone hydrochloride 5 MG Oral Tablet Buspirone HCL 07/31/2020 12:00:00 AM EST ORAL active MEDENT ([facility] Benazepril hydrochloride 20 MG Oral Tablet [Lotensin] Lotens in 07/24/2020 12:00:00 AM EST ORAL completed MEDENT ([facility] Potassium Chloride 10 MEQ Extended Release Oral Tablet Potassium Chloride Nany ER 07/19/2020 12:00:00 AM EST ORAL active MEDENT ([facility] 10 mEq 07/19/2020 12:00:00 [...] H FOOD FOR 5 DAYS SOLD: 07/12/2020 [facility] 10 mg 07/12/2020 12:00:00 AM EST capsule 14 TAKE ONE CAPSULE BY MOUTH EVERY 12 HOURS NEEDED FOR ABDOMINAL PAIN TAKE ONE CAPSULE BY MOUTH EVERY 12 HOURS NEEDED FOR ABDOMINAL PAIN SOLD: 07/12/2020 [facility] 2.5-0.025 mg 07/08/2020 12:00:00 AM EST tablet 56 TAKE ONE TO TWO TABLETS BY MOUTH FOUR TIMES A DAY NEEDED FOR DIARRHEA MAXIMUM DAILY DOSE = EIGHT TABLETS TAKE ONE TO TWO TABLETS BY MOUTH FOUR TI MES A DAY NEEDED FOR DIARRHEA MAXIMUM DAILY DOSE = EIGHT TABLETS SOLD: 07/08/2020 [facility] Atropine Sulfate 0.025 MG / Diphenoxylat e Hydrochloride 2.5 MG Oral Tablet [Lomotil] Lomotil 07/07/2020 12:00:00 AM EST ORAL activ e MEDENT ([facility] 20-12.5 mg 06/29/2020 12:00:00 AM EDT tablet 90 TAKE ONE TABLET BY MOUTH EVERY DAY TAKE ONE TABLET BY MOUTH EVERY DAY SOLD: 07/01/2020 [facility] 112 mcg 06/29/2020 12:00:00 AM EDT tablet 90 TAKE ONE TABLET BY MOUTH EVERY DAY TAKE ONE TABLET BY MOUTH EVERY DAY SOLD: 07/01/2020 [facility] Atropine Sulfate 0.56311 MG/ML / Hyoscya mine Sulfate 0.0207 MG/ML / Phenobarbital 3.24 MG/ML / Scopolamine Hydrobromide 0.0013 MG/ML Oral Solution 16.2-0.1037 -0.0194 mg/5 mL PHENOBARBITAL/HYOSCYAMINE SULF/ATROPINE SULF/SCOPOLAMINE HB 06/09/2020 12:00:00 AM EDT elixir 120 TAKE 5ML BY MOUTH TWO TIMES A DAY MAXIMUM DAILY DOSE = 10ML TAKE 5ML BY MOUTH TWO TIMES A DAY MAXIMUM DAILY DOSE = 10ML SOLD: 06/10/2020 [facility] Cyclobenzaprine hydrochloride 10 MG Oral Tablet CYCLOBENZAPR INE HCL 06/08/2020 12:00:00 AM EDT tablet 30 TAKE ONE TABLET BY MOUTH AT BEDTIME TAKE ONE TABLET BY MOUTH AT BEDTIME SOLD: 06/10/2020 [facility] Atropine Sulfate 0.53387 MG/ML / Hyoscya mine Sulfate 0.0207 MG/ML [...] Sodium 03/21/2020 12:00:00 AM EDT active MEDENT ([facility] 1 % 03/21/2020 12:00:00 AM [...] Medrol 02/15/2020 12:00:00 AM EDT completed MEDENT ([facility] 4 mg 02/15/2020 12:00:00 AM [...] 12:00:00 AM EDT ORAL active MEDENT ([facility] 112 mcg 01/04/2020 12:00:00 AM EDT tablet 90 TAKE ONE TABLET BY MOUTH EVERY DAY REPLACES THE 125MG DOSE 01/13/2018 TAKE ONE TABLET BY MOUTH EVERY DAY REPLACES THE 125MG DOSE 01/13/2018 SOLD: 01/06/2020 [facility] Methylprednisolone 4 MG Oral Tablet [Medrol] Medrol 12:00:00 AM EDT completed MED[facility] ([facility] 4 mg 12/27/2019 12:00:00 AM [...] 12/10/2019 12:00:00 AM EDT ORAL completed [facility] ([facility] 20 mg 12/06/2019 12:00:00 AM EDT tablet 90 TAKE ONE TABLET BY MOUTH EVERY DAY TAKE ONE TABLET BY MOUTH EVERY DAY SOLD: 12/06/2019 [facility] 40 mg 12/06/2019 12:00:00 AM [...] MOUTH EVERY DAY SOLD: 09/25/2020 [facility] 40 mg 12/06/2019 12:00:00 AM EDT capsule,delayed release (DR/EC) 90 TAKE ONE CAPSULE BY MOUTH EVERY DAY TAKE ONE CAPSULE BY MOUTH EVERY DAY SOLD: 04/09/2020 [facility] 10 mg 12/06/2019 12:00:00 AM [...] 12/06/2019 12:00:00 AM EDT ORAL active MEDENT ([facility] Dicyclomine Hydrochloride 10 MG Oral Capsule Dicyclomine HCL 12/06/2019 12:00:00 AM EDT ORAL completed MED[facility] ([facility] Benazepril hydrochloride 20 MG Oral Tablet [Lotensin] Lotens in 12/06/2019 12:00:00 AM EDT ORAL completed [facility] ([facility] 250-50 mcg/dose 11/29/2019 12:00:00 AM [...] FOR 10 DAYS SOLD : 11/03/2019 [facility] Methylprednisolone Sodium Succinate To 125 MG 11/03/2019 1 2:00:00 AM EST completed MEDENT ([facility]) Medication administered onsite 4 mg 11/03/2019 12:00:00 AM EST tablets,dose pack 21 DIRECTED WITH FOOD DIRECTED WITH FOOD SOLD: 11/03/2019 [facility] Methylprednisolone 4 MG Oral Tablet Methylprednisolone 12/2019 12:00:00 AM EST ORAL active MEDENT ([facility]) Doxycycline Monohydrate 100 MG Oral Capsule Doxycycline Swift hydrate 11/03/2019 12:00:00 AM EST ORAL active M EDENT ([facility]) 20-12.5 mg 10/04/2019 12:00:00 AM EST tablet 90 TAKE ONE TABLET BY MOUTH EVERY DAY TAKE ONE TABLET BY MOUTH EVERY DAY SOLD: 10/06/2019 [facility] 112 mcg 10/04/2019 12:00:00 AM EST tablet [...] FOR FOR SHORTNESS OF BREATH SOLD: 09/07/2019 [facility] 200 ACTUAT Albuterol 0.09 MG/ACTUAT Metered Dose [...] AM EST ORAL active [facility] ([facility] Insurance Providers Payer name Policy type / Coverage type Policy ID Covered democrat ID Covered democrat's relationship to garza Policy Garza Plan Information MEDICARE [id number] SP [id number] BCBS EMPIRE KARI DIV [id number] SP [id number] [facility] [id number] SP [id number] SELF PAY ONLY MEDICARE [id number] SP [id number] MEDICARE PART A -O/P [id number] 18 [id number] EMPIRE BLUE 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 SHIELD -O/P [id number] 18 [id number] EMPIRE BLUE CROSS BLUE SHIELD -O/P [id number] 18 [id number] [place] Medicare Primary [id number] Self [id number] [facility] [place] Medigap Part B [id number] Self [id number] [employer] [place] Medigap Part B [id number] Self [id number] Medicare Natl Gov't Servi Medicare Primary [id number] Self [id number] MEDICARE [id number] SP [id number] A BCBS EMPIRE KARI DIV [id number] SP [id number] [place] Medicare Primary [id number] Self [id number] [employer] [place] Medigap Part B [id number] Self [id number] Medicare [facility] Medicare Primary [id number] Self [id number] [employer] [place] Medigap Part B [id number] Self [id number] Medicare Natl Gov't Servi Medicare Primary [id number] Self [id number] [facility](MCA[facility]) O [id number] S [id number] MEDICARE [id number] S [id number] A [facility] C [id number] S [id number] [place] Plan Medigap Part B [id number] Family Dependent [id number] Medicare - [facility] Medicare Primary [id number] Self [id number] BCBS EMPIRE KARI DIV UNAVAILABLE UNAVAILABLE MEDICAID UNAVAILABLE UNAVAILA BLE UN COMMUNITY PLAN MCDO [id number] SP [id number] UNITED HEALTHCARE [id number] UN COMMUNITY PLAN [facility] [id number] SP [id number] BCBS EMPIRE KARI DIV [id number] UNITED HEALTHCARE [id number] [place] Plan-[employer] Medigap Part B [id number] Self [id number] Medicare (Part B) Medicare Primary [id number] Family Depende nt [id number] [facility] [place] [facility] Medigap Part B [id number] Family Depen dent [id number] Medicare - [facility] Medicare Primary [id number] Self [id number] [place] Plan-[employer] Medigap Part B [id number] Self [id number] [place] [facility] Medigap Part B Self Medicare [facility] Medicare Primary Self BCBS EMPIRE KARI DIV [id number] [id number] Problems, Conditions, and Diagnoses Code Display Name Description Problem Type Effective Dates Data Source(s) 890662952 Hypomagnesemia Hypomagnesemia Problem 07/10/2020 12:00: 00 AM EST [facility] ([facility] [id number] Hypokalemia Hypokalemia Problem 07/10/2020 12:00:00 AM EST [facility] ([facility] N18.3 Chronic kidney disease stage 3 Chronic kidney disease stage 3 Problem 12/06/2019 12:00:00 AM EDT [facility] ([facility] 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 Problem 12/06/2019 12:00:00 AM EDT [facility] ([facility] N390 Urinary tract infection, site not specif ied Urinary tract infection, site not specified Diagnosis 12/06/2019 11:24:00 AM EDT [facility] Results ID Date Data Source [id number] 10/24/2020 01:31:00 PM EST [facility] Name Value Range Interpretation Code Description Data Tere rce(s) Supporting Document(s) Magnesium [Mass/volume] in Serum or Plasma 1.7 mg/dL 1.8-2.4 Belo w low normal [facility] ([facility] ID Date Data Source [id number] 10/24/2020 01:31:00 PM EST [facility] ([facility] Name Value Range Interpretation Code Description Data Tere rce(s) Supporting Document(s) White Blood Count 8.6 10 4.0-10.0 Normal (applies to non-numeri c results) [facility] ([facility] Red Blood Count 3.69 10 4.00-5.40 Below low normal MED ENT ([facility] Hemoglobin 12.5 g/dL 12.0-15.5 Normal (applies to non-numeric resul ts) [facility] ([facility] Mean Corpuscular Hemoglobin 33.9 pg 27.0-33.0 Above high normal [facility] ([facility] Hematocrit 37.3 % 36.0-47.0 Normal (applies to non-numeric resul ts) [facility] ([facility] Mean Corpuscular Volume 101.1 fl 80.0-96.0 Above high normal [facility] ([facility] Red Cell Distribution Width 12.9 % 11.5-14.5 Norm al (applies to non-numeric results) [facility] ([facility] ) Mean Corpuscular HGB Conc 33.5 g/dL 32.0-36.5 Normal (applies to non-numeric results) [facility] ([facility] ) Neutrophils % 75.5 % 36.0-66.0 Above high normal MEDE NT ([facility] Platelet Count, Automated 270 10 150-450 Normal (applies to non-numeric results) [facility] ([facility] ) Lymph % 11.1 % 24.0-44.0 Below low normal MED[facility] ( [facility] Swift % 9.7 % 2.0-8.0 Above high normal [facility] ([facility] Baso % 0.8 % 0.0-1.0 Normal (applies to non-numeric resul ts) [facility] ([facility] Eos % 2.4 % 0.0-3.0 Normal (applies to non-numeric resul ts) [facility] ([facility] Immature Granulocyte % 0.5 % 0-3.0 Normal (applies to non-n umeric results) [facility] ([facility] Nucleated Red Blood Cell % 0.0 % 0-0 Normal (applies to n on-numeric results) [facility] ([facility] Neutrophils # 6.5 10 1.5-8.5 Normal (applies to non-numeric re sults) [facility] ([facility] Lymph # 1.0 10 1.5-5.0 Below low normal [facility] ( [facility] Swift # 0.8 10 0.0-0.8 Normal (applies to non-numeric resul ts) [facility] ([facility] Eos # 0.2 10 0.0-0.5 Normal (applies to non-numeric resul ts) [facility] ([facility] Baso # 0.1 10 0.0-0.2 Normal (applies to non-numeric resul ts) [facility] ([facility] ID Date Data Source [id number] 10/10/2020 01:05:00 PM EST [facility] ([facility] Name Value Range Interpretation Code Description Data Tere rce(s) Supporting Document(s) Laboratory test finding (navigational concept) Laboratory test result MEDENT ([facility] Test: COVID-19 Nasal/Naspharynx Result: POSITIVE for 2019-nCoV Reference Units: Not detected NOTE: The COVID-19 assay is under Emergency Use Authorization(EUA) by the U.S. Food and Drug Administration. [facility] is designated as a high complexity laboratory by the Clinical Laboratory Improvement Amendments of 1988(CLIA) and is qualified to perform this test. ASSAY INFORMATION: Real Time RT-PCR ID Date Data Source [id number] 10/10/2020 12:00:00 AM EST [facility] Name Value Range Interpretation Code Description Data Tere rce(s) Supporting Document(s) SARS-CoV-2 (COVID-19) RNA [Presence] in Respiratory specimen by ANA CRISTINA with probe detection Positive for 2019-nCoV [facility] This lab was ordered by [facility] and reported by [employer] ID Date Data Source [id number] 07/24/2020 02:41:00 PM EST [facility] ([facility] Name Value Range Interpretation Code Description Data Tere rce(s) Supporting Document(s) Magnesium [Mass/volume] in Serum or Plasma 1.8 mg/dL 1.6-2.3 [facility] ([facility] ID Date Data Source [id number] 07/24/2020 02:40:00 PM EST [facility] ([facility] Name Value Range Interpretation Code Description Data Tere rce(s) Supporting Document(s) Glu 118 mg/dL 70-110 Above high normal [facility] ([facility] [...] 25 mg/dL 8-23 Above high normal [facility] ([facility] CHRONIC KIDNEY DISEASE [...] 1.6 mg/dL 0.5-1.0 Above high normal [facility] ([facility] CHRONIC KIDNEY DISEASE [...] mL/min Normal BUN/Creatinine Ratio 15.0 Calc MED[facility] ([facility] CHRONIC KIDNEY DISEASE [...] mL/min Normal Na 137 mmol/L 136-145 [facility] ([facility] CHRONIC KIDNEY DISEASE STAGING PER [...] mL/min Normal K 4.4 mmol/L 3.5-5.1 [facility] ([facility] CHRONIC KIDNEY DISEASE STAGING PER [...] mmol/L 98.0-107.0 Above high normal MEDEN T ([facility] CHRONIC KIDNEY DISEASE [...] mL/min Normal CA 9.7 mg/dL 8.6-10.2 [facility] ([facility] CHRONIC KIDNEY DISEASE STAGING [...] mL/min Normal A/G Ratio 1.6 Calc [facility] CHRONIC KIDNEY DISEASE STAGING PER [...] above >32 mL/min Normal Globulin 2.2 Calc JORGE L [facility] CHRONIC KIDNEY DISEASE STAGING PER [...] mL/min Normal Alb 3.6 g/dL 3.4-4.8 [facility] CHRONIC KIDNEY DISEASE STAGING [...] Normal Ast (Sgot) 18 U/L 0-40 [facility] ([facility] CHRONIC KIDNEY DISEASE STAGING PER [...] Normal Alt (SGPT) 11 U/L 0-41 [facility] ([facility] CHRONIC KIDNEY DISEASE STAGING PER [...] mL/min Normal Alp 69.7 U/L 35-129 MEDENT ([facility] CHRONIC KIDNEY DISEASE STAGING [...] mL/min Normal Osmolality-Calculated 279.5 Calc MED ENT ([facility] CHRONIC KIDNEY DISEASE [...] above >32 mL/min Normal eGFR 35 # [facility] ( [facility] [...] Comment Laboratory test result Above high normal JORGE L ([facility] CHRONIC KIDNEY DISEASE [...] and above >32 mL/min Normal eGFR Non-Afr. Lao 30 # MEDNESHA ([facility] CHRONIC KIDNEY DISEASE [...] >32 mL/min Normal ID Date Data Source [id number] 07/17/2020 01:36:00 PM EST JORGE L ([facility] Name Value Range Interpretation Code Description Data Tere rce(s) Supporting Document(s) Magnesium [Mass/volume] in Serum or Plasma 1.4 mg/dL 1.6-2.3 Belo w low normal JORGE L ([facility] ID Date Data Source [id number] 07/17/2020 01:36:00 PM EST MEDNESHA ([facility] Name Value Range Interpretation Code Description Data Tere rce(s) Supporting Document(s) Glu 95 mg/dL 70-110 JORGE L ([facility] CHRONIC KIDNEY DISEASE STAGING [...] >32 mL/min Normal BUN 10 mg/dL 8-23 MEDNESHA ([facility] CHRONIC KIDNEY DISEASE STAGING PER [...] >32 mL/min Normal BUN/Creatinine Ratio 8.5 CALC MEDNESHA ([facility] CHRONIC KIDNEY DISEASE [...] 1.2 mg/dL 0.5-1.0 Above high normal MEDENT ([facility] [...] mL/min Normal Na 136 mmol/L 136-145 [facility] CHRONIC KIDNEY DISEASE STAGING [...] >32 mL/min Normal Alb 3.5 g/dL 3.4-4.8 JORGE L ([facility] CHRONIC KIDNEY DISEASE STAGING PER [...] >32 mL/min Normal A/G Ratio 1.7 CALC JORGE L ([facility] CHRONIC KIDNEY [...] >32 mL/min Normal Alp 81.5 U/L 35-129 JORGE L ([facility] CHRONIC KIDNEY [...] >32 mL/min Normal Globulin 2.1 CALC [facility] CHRONIC KIDNEY DISEASE STAGING [...] Normal Alt (SGPT) 15 U/L 0-41 [facility] ([facility] CHRONIC KIDNEY [...] mL/min Normal Ast (Sgot) 23 U/L 0-40 [facility] ([facility] CHRONIC KIDNEY [...] mL/min Normal Tbili 0.24 mg/dL 0.0-1.2 [facility] ([facility] [...] Normal Osmolality-Calculated 271.1 CALC MED ENT ([facility] CHRONIC [...] >32 mL/min Normal Anion Gap 20 mmol/L [facility] ([facility] [...] above >32 mL/min Normal eGFR 49 # MED[facility] ( [facility] CKD-EPI eGFR Non-Afr. Lao 43 # MEDENT ([facility] CKD-EPI ID Date Data Source [id number] 07/10/2020 09:18:00 AM EST MEDENT ([facility] Name Value Range Interpretation Code Description Data Tere rce(s) Supporting Document(s) Laboratory test finding (navigational concept) 38.0 % 3 8.0-51.0 Normal (applies to non-numeric results) [facility] ([facility] Laboratory test finding (navigational concept) 112 mg/dL 7 0-105 Above high normal MED[facility] ([facility] ) Laboratory test finding (navigational concept) 135 meq/L 1 36-145 Below low normal [facility] ([facility] ) Laboratory test finding (navigational concept) 5.0 mg/dL 4 .5-5.3 Normal (applies to non-numeric results) [facility] ([facility] Laboratory test finding (navigational concept) 2.8 meq/L 3 .5-5.1 Below lower panic limits MED[facility] ([facility] ) Laboratory test finding (navigational concept) 15.0 MM/L 2 3.0-27.0 Below low normal [facility] ([facility] ) Laboratory test finding (navigational concept) 108 meq/L 9 8-109 Normal (applies to non-numeric results) [facility] ([facility] Laboratory test finding (navigational concept) 1.5 mg/dL 0 .6-1.3 Above high normal [facility] ([facility] ) Laboratory test finding (navigational concept) 22 mg/dL 8 -26 Normal (applies to non-numeric results) [facility] ([facility]) ID Date Data Source [id number] 07/10/2020 09:17:00 AM EST [facility] ([facility] Name Value Range Interpretation Code Description Data Tere rce(s) Supporting Document(s) Lactate [Mass/volume] in Serum or Plasma 1.5 mmol/L 0.4-2.0 Normal (applies to non-numeric results) [facility] ([facility]) Y/N query for Sepsis Lactate Rule: Y ID Date Data Source [id number] 07/10/2020 09:16:00 AM EST [facility] Name Value Range Interpretation Code Description Data Tere rce(s) Supporting Document(s) Magnesium [Mass/volume] in Serum or Plasma 1.5 mg/dL 1.8-2.4 Belo w low normal MED[facility] ([facility] Lipoprotein lipase [Enzymatic activity/volume] in Serum or P lasma 322 U/L 73-393 Normal (applies to non-numeric results) [facility] ([facility] ID Date Data Source [id number] 07/10/2020 09:16:00 AM EST [facility] ([facility] Name Value Range Interpretation Code Description Data Tere rce(s) Supporting Document(s) Ast/Sgot 12 U/L 7-37 Normal (applies to non-numeric resul ts) [facility] ([facility] Alt/SGPT 14 U/L 12-78 Normal (applies to non-numeric resul ts) [facility] ([facility] Bilirubin,Total 0.4 mg/dL 0.2-1.0 Normal (applies to non-numeric results) [facility] ([facility] Alkaline Phosphatase 78 U/L 45-117 Normal (applies to non-num racquel results) [facility] ([facility] Albumin 2.6 GM/DL 3.2-5.2 Below low normal MED[facility] ( [facility] Bilirubin,Direct 0.2 mg/dL 0.0-0.2 Normal (applies to non-numeric results) [facility] ([facility] Total Protein 5.8 GM/DL 6.4-8.2 Below low normal MEDEN T ([facility] Albumin/Globulin Ratio 0.8 1.2-2.2 Below low normal [facility] ([facility] ID Date Data Source [id number] 07/10/2020 09:16:00 AM EST [facility] ([facility] Name Value Range Interpretation Code Description Data Tere rce(s) Supporting Document(s) Prothrombin Time 13.3 s 12.5-14.3 Normal (applies to non-numeric results) [facility] ([facility] Inr 0.99 Normal (applies to non-numeric resul ts) [facility] ([facility] THERAPUTIC HUMAN INR VALUES INDICATIONS NORMAL RANGES PROPHYLAXIS/TREATMENT OF: VENOUS THROMBOSIS 2.0-3.0 PULMONARY EMBOLISM 2.0-3.0 PREVENTION OF SYSTEMIC EMBOLISM FROM: TISSUE HEART VALVES 2.0-3.0 ACUTE MYOCARDIAL INFARCTION 2.0-3.0 VALVULAR HEART DISEASE 2.0-3.0 ATRIAL FIBRILLATION 2.0-3.0 MECHANICAL VALVES(HIGH RISK) 2.5-3.5 RECURRENT MYOCARDIAL INFARCTION 2.5-3.5 ID Date Data Source [id number] 07/10/2020 09:16:00 AM EST [facility] ([facility] Name Value Range Interpretation Code Description Data Tere rce(s) Supporting Document(s) White Blood Count 10.0 10 4.0-10.0 Normal (applies to non-numeri c results) [facility] ([facility] Red Blood Count 3.52 10 4.00-5.40 Below low normal MED ENT ([facility] Hemoglobin 11.9 g/dL 12.0-15.5 Below low normal [facility] ( [facility] Mean Corpuscular Volume 101.1 fl 80.0-96.0 Above high normal [facility] ([facility] Hematocrit 35.6 % 36.0-47.0 Below low normal [facility] ( [facility] Mean Corpuscular Hemoglobin 33.8 pg 27.0-33.0 Above high normal [facility] ([facility] Mean Corpuscular HGB Conc 33.4 g/dL 32.0-36.5 Normal (applies to non-numeric results) [facility] ([facility] Red Cell Distribution Width 12.5 % 11.5-14.5 Norm al (applies to non-numeric results) [facility] ([facility] ) Platelet Count, Automated 356 10 150-450 Normal (applies to non-numeric results) [facility] ([facility] ) Neutrophils % 77.1 % 36.0-66.0 Above high normal MEDE NT ([facility] Lymph % 11.0 % 24.0-44.0 Below low normal [facility] ( [facility] Eos % 2.3 % 0.0-3.0 Normal (applies to non-numeric resul ts) [facility] ([facility] Swift % 8.6 % 0.0-5.0 Above high normal [facility] ([facility] Baso % 0.5 % 0.0-1.0 Normal (applies to non-numeric resul ts) [facility] ([facility] Immature Granulocyte % 0.5 % 0-3.0 Normal (applies to non-n umeric results) [facility] ([facility] Neutrophils # 7.7 10 1.5-8.5 Normal (applies to non-numeric re sults) [facility] ([facility] Nucleated Red Blood Cell % 0.0 % 0-0 Normal (applies to n on-numeric results) [facility] ([facility] Lymph # 1.1 10 1.5-5.0 Below low normal [facility] ( [facility] Eos # 0.2 10 0.0-0.5 Normal (applies to non-numeric resul ts) [facility] ([facility] Swift # 0.9 10 0.0-0.8 Above high normal [facility] ([facility] Baso # 0.1 10 0.0-0.2 Normal (applies to non-numeric resul ts) [facility] ([facility] ID Date Data Source [id number] 03/21/2020 03:35:00 PM EDT [facility] ([facility] Name Value Range Interpretation Code Description Data Tere rce(s) Supporting Document(s) Thyrotropin [Units/volume] in Serum or Plasma 0.718 ulU/mL 0.60-4.8 [facility] ([facility] ID Date Data Source [id number] 01/04/2020 02:29:00 PM EDT [facility] ([facility] Name Value Range Interpretation Code Description Data Tere rce(s) Supporting Document(s) Urine Culture, Routine Laboratory test result [facility] ([facility] SRC:URINE Bacteria identified in Urine by Culture Laboratory test result [facility] ([facility] SRC:URINE ID Date Data Source [id number] 01/04/2020 02:28:00 PM EDT [facility] ([facility] Name Value Range Interpretation Code Description Data Tere rce(s) Supporting Document(s) Appearance of Urine Laboratory test result [facility] ([facility] Specific [place] 1.020 1.00-1.03 [facility] ([facility] Color Urine Laboratory test result M EDENT ([facility] PH Urine 5.5 5.0-8.0 [facility] Glucose Urine Laboratory test result [facility] ([facility] Blood Urine Laboratory test result M EDENT ([facility] Bilirubin.total [Presence] in Urine by Test strip Laboratory alma delia t result Above high normal [facility] ([facility] ) Ketones Laboratory test result [facility] ([facility] Urobilinogen 0.2 EU/dl 0.2-1.0 [facility] Protein Urine Laboratory test result [facility] ([facility] Nitrite Laboratory test result [facility] ([facility] Leukocytes Laboratory test result Above high normal [facility] ([facility] ID Date Data Source [id number] 12/06/2019 02:49:00 PM EDT JORGE L ([facility] Name Value Range Interpretation Code Description Data Tere rce(s) Supporting Document(s) Culture Urine Laboratory test result JORGE L ([facility] <content>_CULTURE URINE_</content>
<content>^$377593</content>
<content>^^614994</content>
<content>$$623310</content>
<content>^^464903</content>
<content>$$ 862328</content>
<content>$$601340</content>
<content>$$556582</content>
<content>$$ 023605</content>
<content>$$137963</content>
<content>$$759163</content>
<content> $$497229</content>
<content>$$724291</content>
<content>$$077072</conten t>
<content>$$221012</content>
<content>$$634246</content>
<content> $$978246</content>
<content>$$801922</content>
<content>$$819389</content>
<content>$$47814 0</content>
<content>$$316211</content>
<content>$$832260</content>
<content>$$372118</content>
<content>$$687700</content>
<content>$$513112</content>
<content>$$ 320791</content>
<content>$$152363</content>
<content>$$404484</content>
<content> ^^181552</content>
<content>$$102541</content>
<content>$$464023</conten t>
<content>$$769099</content>
<content></content>
<content>-- Continued on next page --</content>
<content>Patient: LUIS Ragsdale Order: [id number] Page 2</content>
<content>Culture: CULTURE URINE Status: Final</rosalino nt>
<content> < /content>
<content></content>
<content></content>
<content>-- Continued on next page --</content>
<content>Patient: LUIS Ragsdale Order: [id number] Page 2</content>
<content>Culture: CULTURE URINE Status: Prelim</content>
<content> < /content>
<content></content>
<content>$$077487</content>
<content>$ $227121</content>
<content></content>
<content>REPORTED DATE/TIME: 12/10/2019 10:05</content>
<content>Culture: CULTURE [...]
<content></content>
<content></content>
<content> Patient: LUIS Ragsdale Order: [id number] Page 3</content>
<content>Culture: CULTURE URINE Status: Final</content>
[...]
<content> Vancomycin</content>
<content></content>
<content>P1 Test performed by: [facility] [place]ER[place] #: [id number]</content>
<content>[address]</content>
<content> [id number]</content>
<content>[place] [address]</content>
<content>[employer] : Tate Wells MD NPI #:</content>
<content>Leave Manager :</content>
<content>12/09/19.0612.XMT.SENT REF</content>
<content>12/10/19.1045.XMT.SENT REF</content>
<content>12/10/19.1045.MD .to [facility] via fax</content>
<content></content>
<content></content> ID Date Data Source [id number] 12/06/2019 02:48:00 PM EDT [facility] ([facility] Name Value Range Interpretation Code Description Data Tere rce(s) Supporting Document(s) Magnesium [Mass/volume] in Serum or Plasma 2.1 mg/dL 1.6-2.3 [facility] ([facility] ID Date Data Source [id number] 12/06/2019 02:48:00 PM EDT [facility] ([facility] Name Value Range Interpretation Code Description Data Tere rce(s) Supporting Document(s) Color Urine Laboratory test result M EDENT ([facility] Specific [place] 1.020 1.00-1.03 [facility] ([facility] Appearance of Urine [...] [facility] Urobilinogen 0.2 EU/dl 0.2-1.0 [facility] ([facility] Blood Urine Laboratory test result M EDENT ([facility] Protein Urine Laboratory test result [facility] ([facility] Leukocytes Laboratory test result Above high normal [facility] ([facility] Nitrite Laboratory test result [facility] ([facility] ID Date Data Source [id number] 12/10/2019 10:44:00 AM EDT [facility] Name Value Range Interpretation Code Description Data Tere rce(s) Supporting Document(s) CULTURE URINE [facility] _CULTURE URINE_$$468907$$231058$$692588$$547702$$691424$$841470$$405243$$151113$$914854$$ 954662$$576869$$140538$$493021$$804392$$986121$$273694$$794116$$154166$$580619$$ 018806$$039113$$772866$$985282$$624652$$893218$$613245$$289507 -- Continued on next page --Patient: LUIS Ragsdale Order: [id number] Page 2Culture: CULTURE URINE Status: Final ==== -- Continued on next page --Patient: LUIS Ragsdale Order: [id number] Page 2Culture: CULTURE URINE Status: Prelim =====$$877700$$[id number] DATE/TIME: 12/10/2019 10:05Culture: CULTURE URINE Status: FinalIsolate [...] 12/09/2019 03:47 ET Gram negative rodsUrine Culture,Comprehensive: [id number] coli Flag: AIsolate 2 Enterococcus faecalis Flag: A . . . . . . .710,000-25,000 colony forming units per mL Previous result entered on 12/09/2019 03:47 ET Microbiological testing to rule out the presence of possible pathogensis in progress.Enterococcus faecalis Flag: APatient: LUIS Ragsdale Order: [id number] Page 3Culture: CULTURE URINE Status: Final ISOLATE [...] R R Vancomycin P1 Test performed by: [facility] #: [id number] [address] [place] [address] [id number] [facility] [id number] Director : Tate Wells MD NPI #:Leave Manager : 12/09/19.0612.XMT.SENT REF 12/10/19.1045.XMT.SENT REF 12/10/19.1045. .to [facility] via fax ID Date Data Source [id number] 12/06/2019 02:09:00 PM EDT [facility] ([facility] Name Value Range Interpretation Code Description Data Tere rce(s) Supporting Document(s) Glu 115 mg/dL 70-110 Above high normal [facility] ([facility] CHRONIC KIDNEY DISEASE [...] 1.2 mg/dL 0.5-1.0 Above high normal [facility] (Family [...] DIFF.) APPENDIX B-3 BUN 14 mg/dL 04-[address] [facility] CHRONIC KIDNEY DISEASE STAGING [...] HCT IS 5% LESS SOURCE FOR DATA: [employer] DYN 1800 OPERATION MANUAL( AUTOMATED BLOOD COUNTS AND DIFF.) APPENDIX B-3 K 3.9 mmol/L 3.5-5.1 [facility] ([facility] CHRONIC KIDNEY DISEASE STAGING PER [...] DIFF.) APPENDIX B-3 BUN/Creatinine Ratio 12.[address] [facility] ([facility] CHRONIC KIDNEY DISEASE [...] 140-440 Adult F 4.1-10.9 4.04-5.48 12.0-18.0 37.0-51.0 -97 140-440 0- 1 Yr 5.0-20.0 3.9-5.9 15-18 [...] Na 130 mmol/L 136-145 Below low normal [facility] ( [facility] CHRONIC KIDNEY [...] Co2 18.2 mmol/L 22.0-29.0 Below low normal [facility] ([facility] CHRONIC KIDNEY DISEASE [...] HCT IS 5% LESS SOURCE FOR DATA: [employer] 1800 OPERATION MANUAL( AUTOMATED BLOOD COUNTS AND DIFF.) APPENDIX B-3 CL 96.5 mmol/L 98.0-107.0 Below low normal [facility] ([facility] CHRONIC KIDNEY DISEASE [...] HCT IS 5% LESS SOURCE FOR DATA: [employer] 1800 OPERATION MANUAL( AUTOMATED BLOOD COUNTS AND DIFF.) APPENDIX B-3 CA 10.0 mg/dL 8.6-10.[address] [facility] ([facility] CHRONIC KIDNEY DISEASE STAGING [...] HCT IS 5% LESS SOURCE FOR DATA: [employer] DYN 1800 OPERATION MANUAL( AUTOMATED BLOOD COUNTS AND DIFF.) APPENDIX B-3 A/G Ratio 1.5 CALC [facility] ([facility] CHRONIC KIDNEY DISEASE STAGING [...] DIFF.) APPENDIX B-3 Alb 3.7 g/dL 3.4-4.8 JORGE L [facility] CHRONIC KIDNEY DISEASE STAGING [...] HCT IS 5% LESS SOURCE FOR DATA: [employer] 1800 OPERATION MANUAL( AUTOMATED BLOOD COUNTS AND [...] HCT IS 5% LESS SOURCE FOR DATA: [employer] DYN 1800 OPERATION MANUAL( AUTOMATED BLOOD COUNTS AND DIFF.) APPENDIX B-3 Globulin 2.5 CALC [facility] CHRONIC KIDNEY DISEASE STAGING [...] DIFF.) APPENDIX B-3 Alp 81.1 U/L 35-129 [facility] CHRONIC KIDNEY DISEASE STAGING [...] HCT IS 5% LESS SOURCE FOR DATA: [employer] 1800 OPERATION MANUAL( AUTOMATED BLOOD COUNTS AND DIFF.) APPENDIX B-3 Ast (Sgot) 16 U/L 0-[address] [facility] ([facility] CHRONIC KIDNEY DISEASE STAGING [...] DIFF.) APPENDIX B-3 Tbili 0.33 mg/dL 0.0-1.2 [facility] CHRONIC KIDNEY DISEASE STAGING PER NKF: [...] APPENDIX B-3 Alt (SGPT) 13 U/L 0-41 [facility] CHRONIC KIDNEY DISEASE STAGING [...] HCT IS 5% LESS SOURCE FOR DATA: [employer] 1800 OPERATION MANUAL( AUTOMATED BLOOD COUNTS AND DIFF.) APPENDIX B-3 eGFR 49 # [facility] ( [facility] CHRONIC KIDNEY DISEASE [...] HCT IS 5% LESS SOURCE FOR DATA: [employer] 1800 OPERATION MANUAL( AUTOMATED BLOOD COUNTS AND DIFF.) APPENDIX B-3 Anion Gap 19 mmol/L [facility] CHRONIC KIDNEY DISEASE STAGING [...] HCT IS 5% LESS SOURCE FOR DATA: [employer] 1800 OPERATION MANUAL( AUTOMATED BLOOD COUNTS AND DIFF.) APPENDIX B-3 Osmolality-Calculated 261.3 CALC MED [facility] ([facility] CHRONIC [...] HCT IS 5% LESS SOURCE FOR DATA: [employer] DYN 1800 OPERATION MANUAL( AUTOMATED BLOOD COUNTS AND DIFF.) APPENDIX B-3 eGFR Non-Afr. Lao 43 # [facility] ([facility] CHRONIC KIDNEY DISEASE [...] HCT IS 5% LESS SOURCE FOR DATA: [employer] 1800 OPERATION MANUAL( AUTOMATED BLOOD COUNTS AND DIFF.) APPENDIX B-3 ID Date Data Source [id number] 12/06/2019 02:09:00 PM EDT [facility] ([facility] Name Value Range Interpretation Code Description Data Tere rce(s) Supporting Document(s) RBC 3.94 10E6/uL 4.20-6.30 Below low normal [facility] CHRONIC KIDNEY DISEASE [...] DIFF.) APPENDIX B-3 WBC 10.1 10E3/uL 4.1-10.9 [facility] CHRONIC KIDNEY DISEASE STAGING [...] DIFF.) APPENDIX B-3 HGB 13.7 g/dL 12.0-18.[address] [facility] ([facility] CHRONIC KIDNEY DISEASE STAGING [...] HCT IS 5% LESS SOURCE FOR DATA: [employer] DYN 1800 OPERATION MANUAL( AUTOMATED BLOOD COUNTS AND DIFF.) APPENDIX B-3 MCV 100.8 fL 80.0-97.0 Above high normal [facility] CHRONIC KIDNEY DISEASE [...] HCT IS 5% LESS SOURCE FOR DATA: [employer] 1800 OPERATION MANUAL( AUTOMATED BLOOD COUNTS AND DIFF.) APPENDIX B-3 HCT 39.7 % 37.0-51.[address] [facility] ([facility] CHRONIC KIDNEY DISEASE STAGING [...] HCT IS 5% LESS SOURCE FOR DATA: [employer] 1800 OPERATION MANUAL( AUTOMATED BLOOD COUNTS AND DIFF.) APPENDIX B-3 MCH 34.8 pg 26.0-32.0 Above high normal [facility] ([facility] CHRONIC KIDNEY DISEASE [...] HCT IS 5% LESS SOURCE FOR DATA: [employer] 1800 OPERATION MANUAL( AUTOMATED BLOOD COUNTS AND DIFF.) APPENDIX B-3 MCHC 34.5 g/dL 31.0-36.0 [facility] CHRONIC KIDNEY DISEASE STAGING [...] HCT IS 5% LESS SOURCE FOR DATA: [employer] 1800 OPERATION MANUAL( AUTOMATED BLOOD COUNTS AND DIFF.) APPENDIX B-3 Lym% 15.2 % 10.0-58.[address] [facility] ([facility] CHRONIC KIDNEY DISEASE STAGING [...] DIFF.) APPENDIX B-3 PLT 407 10E3/uL 140-[address] [facility] ([facility] CHRONIC KIDNEY DISEASE [...] HCT IS 5% LESS SOURCE FOR DATA: [employer] DYN 1800 OPERATION MANUAL( AUTOMATED BLOOD COUNTS AND DIFF.) APPENDIX B-3 RDW-CV 12.7 % 11.5-14.5 [facility] CHRONIC KIDNEY DISEASE STAGING [...] APPENDIX B-3 Neut% 72.3 % 37.0-92.0 [facility] ([facility] CHRONIC KIDNEY [...] DIFF.) APPENDIX B-3 MXD% 12.5 % 0.1-24.0 [facility] CHRONIC KIDNEY DISEASE STAGING [...] HCT IS 5% LESS SOURCE FOR DATA: [employer] 1800 OPERATION MANUAL( AUTOMATED BLOOD COUNTS AND DIFF.) APPENDIX B-3 Lym# 1.5 10E3/uL 0.6-4.1 [facility] CHRONIC KIDNEY DISEASE [...] HCT IS 5% LESS SOURCE FOR DATA: [employer] 1800 OPERATION MANUAL( AUTOMATED BLOOD COUNTS AND DIFF.) APPENDIX B-3 MPV 9.6 fL 9.0-13.[address] [facility] CHRONIC KIDNEY DISEASE STAGING [...] HCT IS 5% LESS SOURCE FOR DATA: [employer] 1800 OPERATION MANUAL( AUTOMATED BLOOD COUNTS AND DIFF.) APPENDIX B-3 Neut# 7.3 % 2.0-7.[address] [facility] CHRONIC KIDNEY DISEASE STAGING [...] HCT IS 5% LESS SOURCE FOR DATA: [employer] 1800 OPERATION MANUAL( AUTOMATED BLOOD COUNTS AND DIFF.) APPENDIX B-3 MXD# 1.3 10E3/uL 0.0-1.8 [facility] CHRONIC KIDNEY DISEASE [...] HCT IS 5% LESS SOURCE FOR DATA: [employer] 1800 OPERATION MANUAL( AUTOMATED BLOOD COUNTS AND DIFF.) APPENDIX B-3 ID Date Data Source [id number] 11/09/2019 01:59:00 PM EDT [facility] ([facility] Name Value Range Interpretation Code Description Data Tere rce(s) Supporting Document(s) Respiratory Panel Laboratory test result [facility] ([facility] This respiratory PCR panel detects Influ lance A H1, H3 and 2009 H1 viruses, Influenza B virus, Resp iratory syncytial virus, Human metapneumovirus, Parainfluenza virus 1, 2, 3 and 4, Adenovirus, Rhinovirus/Enterovirus, Coronavirus HKU1, NL63, OC43 and 229E, Bordetella pertussis, Mycoplasma pneumoniae and Chlamydia pneumoniae. NEGATIVE by MULTIPLEXED NUCLEIC ACID PCR ID Date Data Source [id number] 11/09/2019 12:56:00 PM EDT [facility] Name Value Range Interpretation Code Description Data Tere rce(s) Supporting Document(s) Thyrotropin [Units/volume] in Serum or Plasma 1.670 uIU/ML 0. 358-3.740 Normal (applies to non-numeric results) [facility] By: Y By: Y Magnesium [Mass/volume] in Serum or Plasma 1.6 mg/dL 1.8-2.4 Belo w low normal [facility] ([facility] By: Y By: Y Thyroxine (T4) free [Mass/volume] in Serum or Plasma 1.64 ng/dL 0.76-1.46 Above high normal [facility] ([facility] ) By: Y By: Y ID Date Data Source [id number] 11/09/2019 12:56:00 PM EDT [facility] ([facility] Name Value Range Interpretation Code Description Data Tere rce(s) Supporting Document(s) Glucose, Fasting 113 mg/dL 70-100 Above high normal M EDENT ([facility] Blood Urea Nitrogen 35 mg/dL 7-18 Above high normal [facility] ([facility] Potassium Serum 3.6 meq/L 3.5-5.1 Normal (applies to non-numeric results) [facility] ([facility] Creatinine For GFR 1.57 mg/dL 0.55-1.30 Above high normal [facility] ([facility] Glomerular Filtration Rate 33.8 Below low normal [facility] ([facility] <content>Units are mL/min/1.73 m2</content>
<content></content>
<content>Chronic Kidney Disease Staging per NKF:</content>
<content></content>
<content>Stage I & II GFR >=60 Normal to Mildly Decreased</content>
<content>Stage III GFR 30- 59 Moderately Decreased</content>
<content>Stage IV GFR 15-29 Severely Decreased</content>
<content>Stage V GFR <15 Very Little GFR Left</content>
<content>ESRD GFR <15 on BOOM WORKER</content>
<content></content> Sodium Level 131 meq/L 136-145 Below low normal [facility] ([facility] Carbon Dioxide Level 22 meq/L 21-32 Normal (applies to non-num racquel results) [facility] ([facility] Anion Gap 10 meq/L 8-16 Normal (applies to non-numeric resul ts) [facility] ([facility] Chloride Level 99 meq/L 98-107 Normal (applies to non-numeric r esults) [facility] ([facility] Calcium Level 10.7 mg/dL 8.8-10.2 Above high normal [facility] ([facility] ID Date Data Source [id number] 11/09/2019 12:56:00 PM EDT [facility] ([facility] Name Value Range Interpretation Code Description Data Tere rce(s) Supporting Document(s) MB/CK Relative Index 2.29 Normal (applies to non-num racquel results) [facility] ([facility] <content>DIAGNOSIS CRITERIA</content>
<content>MMB ng/ml Relative Index (RI)</content>
<content>NON-AMI < or = 5 N/A</content>
<content>WOOD ZONE > 5 < or = 4</content>
<content>AMI > 5 > 4</content>
<content></content> CK-MB Value Mass 1.9 ng/mL Normal (applies to non-numeric results) [facility] ([facility] CPK Creatine Phosphokinase 83 U/L 26-192 Urszula l (applies to non-numeric results) [facility] ([facility] ) Troponin I Laboratory test result Normal (applies to non-n umeric results) [facility] ([facility] <content>Troponin I Reference Interval f or [employer]ens [place] LOCI:</content>
<content></content>
<content>99th Percentile= 0.00-0.045 ng/ml</content>
<content></content>
<content>Risk Stratification:</content>
<content><= 0.10 ng/ml Decreased Risk for Adverse Clinical</content>
<content>Events.</content>
<content>0.10-1.50 ng/ml Increased Risk for Adverse Clinical</content>
<content>Events. Evaluation of additional</content>
<content>criterion and/or repeat testing in 2-6</content>
<content>hours is suggested to rule out myocardial</content>
<content>damage.</content>
<content>>= 1.50 ng/ml Indicative of Myocardial Injury.</content>
<content></content> ID Date Data Source [id number] 11/09/2019 12:56:00 PM EDT [facility] Name Value Range Interpretation Code Description Data Tere rce(s) Supporting Document(s) aPTT in Platelet poor plasma by Coagulation assay 27.1 s 25.0-38.4 Normal (applies to non-numeric results) [facility] ([facility] ID Date Data Source [id number] 11/09/2019 12:56:00 PM EDT [facility] ([facility] Name Value Range Interpretation Code Description Data Tere rce(s) Supporting Document(s) Prothrombin Time 13.0 s 11.8-14.0 Normal (applies to non-numeric results) [facility] ([facility] Inr 1.01 Normal (applies to non-numeric resul ts) [facility] ([facility] THERAPUTIC HUMAN INR VALUES INDICATIONS NORMAL RANGES PROPHYLAXIS/TREATMENT OF: VENOUS THROMBOSIS 2.0-3.0 PULMONARY EMBOLISM 2.0-3.0 PREVENTION OF SYSTEMIC EMBOLISM FROM: TISSUE HEART VALVES 2.0-3.0 ACUTE MYOCARDIAL INFARCTION 2.0-3.0 VALVULAR HEART DISEASE 2.0-3.0 ATRIAL FIBRILLATION 2.0-3.0 MECHANICAL VALVES(HIGH RISK) 2.5-3.5 RECURRENT MYOCARDIAL INFARCTION 2.5-3.5 ID Date Data Source [id number] 11/09/2019 12:56:00 PM EDT [facility] ([facility] Name Value Range Interpretation Code Description Data Tere rce(s) Supporting Document(s) Red Blood Count 4.19 10 4.00-5.40 Normal (applies to non-numeric results) [facility] ([facility] White Blood Count 13.8 10 4.0-10.0 Above high normal [facility] ([facility] Hemoglobin 15.0 g/dL 12.0-15.5 Normal (applies to non-numeric resul ts) [facility] ([facility] Mean Corpuscular Volume 103.1 fl 80.0-96.0 Above high normal [facility] ([facility] Hematocrit 43.2 % 36.0-47.0 Normal (applies to non-numeric resul ts) [facility] ([facility] Red Cell Distribution Width 12.5 % 11.5-14.5 Norm al (applies to non-numeric results) [facility] ([facility] ) Mean Corpuscular Hemoglobin 35.8 pg 27.0-33.0 Above high normal [facility] ([facility] Mean Corpuscular HGB Conc 34.7 g/dL 32.0-36.5 Normal (applies to non-numeric results) [facility] ([facility] ) Platelet Count, Automated 309 10 150-450 Normal (applies to non-numeric results) [facility] ([facility] ) Lymph % 13.9 % 24.0-44.0 Below low normal [facility] ( [facility] Neutrophils % 75.7 % 36.0-66.0 Above high normal [facility] ([facility] Immature Granulocyte % 1.6 % 0-3.0 Normal (applies to non-n umeric results) [facility] ([facility] Eos % 0.4 % 0.0-3.0 Normal (applies to non-numeric resul ts) [facility] ([facility] Baso % 0.5 % 0.0-1.0 Normal (applies to non-numeric resul ts) [facility] ([facility] Swift % 7.9 % 0.0-5.0 Above high normal [facility] ([facility] Neutrophils # 10.4 10 1.5-8.5 Above high normal [facility] ([facility] Nucleated Red Blood Cell % 0.0 % 0-0 Normal (applies to n on-numeric results) [facility] ([facility] Lymph # 1.9 10 1.5-5.0 Normal (applies to non-numeric resul ts) [facility] ([facility] Swift # 1.1 10 0.0-0.8 Above high normal [facility] ([facility] Eos # 0.1 10 0.0-0.5 Normal (applies to non-numeric resul ts) [facility] ([facility] Baso # 0.1 10 0.0-0.2 Normal (applies to non-numeric resul ts) [facility] ([facility] ID Date Data Source [id number] 11/09/2019 12:44:00 PM EDT [facility] ([facility] Name Value Range Interpretation Code Description Data Tere rce(s) Supporting Document(s) Glucose [Mass/volume] in Capillary blood by Glucometer 111 mg/dL 83-110 Above high normal [facility] ([facility] ) Procedure Social History Code Duration Value Status Description Data Source(s ) Smoking 06/20/2020 12:00:00 AM EDT Patient has never smoked co mpleted Patient has never smoked [facility] ([facility] ) Vital Signs ID Date Data Source UNK Name Value Range Interpretation Code Description Data Source(s) Oxygen saturation in Arterial blood by Pulse oximetry 98 % 98 % [facility] ([facility] Body mass index (BMI) [Ratio] 26.8 kg/m2 26.8 k g/m2 [facility] ([facility] Burton body weight 105 [lb_av] 105 [lb_av] [facility] T ([facility] Body weight 142.00 [lb_av] 142.00 [lb_av] [facility] T ([facility] Body height 61 [in_i] 61 [in_i] [facility] ([facility] 5'1" Respiratory rate 16 /min 16 /min [facility] ( [facility] Heart rate 87 /min 87 /min [facility] ([facility] Body temperature 97.1 [degF] 97.1 [degF] [facility] ([facility] Diastolic blood pressure 54 mm[Hg] 54 mm[Hg] [facility] ([facility] Systolic blood pressure 92 mm[Hg] 92 mm[Hg] M [facility]ENT ([facility] Oxygen saturation in Arterial blood by Pulse oximetry 99 % 99 % [facility] ([facility] Body mass index (BMI) [Ratio] 27.2 kg/m2 27.2 k g/m2 [facility] ([facility] Burton body weight 105 [lb_av] 105 [lb_av] [facility] T ([facility] Body weight 144.00 [lb_av] 144.00 [lb_av] [facility] T ([facility] Body height 61 [in_i] 61 [in_i] [facility] ([facility] 5'1" Respiratory rate 16 /min 16 /min [facility] ( [facility] Heart rate 103 /min 103 /min [facility] ([facility] Body temperature 97.8 [degF] 97.8 [degF] [facility] ([facility] Diastolic blood pressure 64 mm[Hg] 64 mm[Hg] [facility] ([facility] Systolic blood pressure 102 mm[Hg] 102 mm[Hg] M [facility]ENT ([facility] Oxygen saturation in Arterial blood by Pulse oximetry 98 % 98 % [facility] ([facility] Body mass index (BMI) [Ratio] 26.8 kg/m2 26.8 k g/m2 [facility] ([facility] Burton body weight 105 [lb_av] 105 [lb_av] [facility] T ([facility] Body weight 142.00 [lb_av] 142.00 [lb_av] [facility] T ([facility] Body height 61 [in_i] 61 [in_i] [facility] ([facility] 5'1" Respiratory rate 16 /min 16 /min [facility] ( [facility] Heart rate 100 /min 100 /min [facility] ([facility] Body temperature 97.3 [degF] 97.3 [degF] [facility] ([facility] Diastolic blood pressure 58 mm[Hg] 58 mm[Hg] [facility] ([facility] Systolic blood pressure 96 mm[Hg] 96 mm[Hg] M [facility]ENT ([facility] Body mass index (BMI) [Ratio] 27.8 kg/m2 27.8 k g/m2 [facility] ([facility]) Body weight 147.00 [lb_av] 147.00 [lb_av] [facility] T ([facility]) Body height 61 [in_i] 61 [in_i] [facility] ([facility]) 5'1" Body temperature 96.8 [degF] 96.8 [degF] [facility] ([facility]) Oxygen saturation in Arterial blood by Pulse oximetry 98 % 98 % [facility] ([facility] Body mass index (BMI) [Ratio] 28.5 kg/m2 28.5 k g/m2 [facility] ([facility] Burton body weight 105 [lb_av] 105 [lb_av] [facility] T ([facility] Body weight 151.00 [lb_av] 151.00 [lb_av] [facility] T ([facility] Body height 61 [in_i] 61 [in_i] [facility] ([facility] 5'1" Respiratory rate 16 [...] k g/m2 [facility] ([facility] Burton body weight 105 [lb_av] 105 [lb_av] [facility] T ([facility] Body weight 155.00 [lb_av] 155.00 [lb_av] [facility] T ([facility] Body height 61 [in_i] 61 [in_i] [facility] ([facility] 5'1" Respiratory rate 16 [...] Body height 61 [in_i] 61 [in_i] [facility] ([facility] 5'1" Respiratory rate 18 [...] Body height 61 [in_i] 61 [in_i] [facility] ([facility] 5'1" Respiratory rate 20 /min 20 /min [facility] ( [facility] Heart rate 100 /min 100 /min [facility] ([facility] Body temperature 98.6 [degF] 98.6 [degF] [facility] ([facility] Diastolic blood pressure 80 mm[Hg] 80 mm[Hg] [facility] ([facility] Systolic blood pressure 136 mm[Hg] 136 mm[Hg] M [facility]ENT ([facility] Oxygen saturation in Arterial blood by Pulse oximetry 96 % 96 % [facility] ([facility] Body mass index (BMI) [Ratio] 30.0 kg/m2 30.0 k g/m2 [facility] ([facility] Body weight 159.00 [lb_av] 159.00 [lb_av] [facility] T ([facility] Body height 61 [in_i] 61 [in_i] [facility] ([facility] 5'1" Respiratory rate 16 /min 16 /min [facility] ( [facility] Heart rate 106 /min 106 /min [facility] ([facility] Body temperature 97.8 [degF] 97.8 [degF] [facility] ([facility] Diastolic blood pressure 64 mm[Hg] 64 mm[Hg] [facility] ([facility] Systolic blood pressure 114 mm[Hg] 114 mm[Hg] M [facility] ([facility] Body mass index (BMI) [Ratio] 30.2 kg/m2 30.2 k g/m2 [facility] ([facility]) Body height 61 [in_i] 61 [in_i] [facility] ([facility], [facility]) 5'1" Body weight 160.00 [lb_av] 160.00 [lb_av] [facility] T ([facility], [facility]) Body temperature 98.5 [degF] 98.5 [degF] [facility] ([facility], [facility]) Oxygen saturation in Arterial blood by Pulse oximetry 98 % 98 % [facility] ([facility], [facility]) Respiratory rate 18 /min 18 /min [facility] ( [facility], [facility]) Heart rate 97 /min 97 /min [facility] ([facility], [facility]) Diastolic blood pressure 85 mm[Hg] 85 mm[Hg] [facility] ([facility], [facility]) Systolic blood pressure 141 mm[Hg] 141 mm[Hg] M [facility] ([facility], [facility]) Oxygen saturation in Arterial blood by Pulse oximetry 97 % 97 % [facility] ([facility] Body mass index (BMI) [Ratio] 31.4 kg/m2 31.4 k g/m2 [facility] ([facility] Body weight 166.00 [lb_av] 166.00 [lb_av] [facility] T ([facility] Body height 61 [in_i] 61 [in_i] [facility] ([facility] 5'1" Respiratory rate 18 /min 18 /min [facility] ( [facility] Heart rate 90 /min 90 /min [facility] ([facility] Body temperature 97.5 [degF] 97.5 [degF] [facility] ([facility] Diastolic blood pressure 80 mm[Hg] 80 mm[Hg] JORGE L ([facility] Systolic blood pressure 110 mm[Hg] 110 mm[Hg] Kelly CORLEY ([facility]
--- NOTE | 2020-10-24 16:07 | HPEPDOC ---
General Date of Admission 10/24/20 Date of Service: Oct 24, 2020 Chief Complaint The patient is a 80-year-old female admitted with a reason for visit of Nausea. Source: Patient, RN/MD History of Present Illness 80 year old independent female with PMH of Asthma, Latent TB, DM, HTN, was exposed to granddaughter who was tested positive for COVID in the first week of Oct. After that she had some cold, sinus congestion and increased cough so she was tested on 10/10/20 and came back positive. She did not have any other respiratory symptoms. But she has not been feeling well for the past 4 to 5 days, weak tired, poor appetite, nausea. She was taking pepto bismol to help with these. Yesterday she started having crampy abdominal pain located in the center of her abdomen and diarrhea. The pain was about 7/10 in intensity when the cramps would come and would be relieved after a bowel movement. The color was greenish to black in color which she thought was due to the peptobismol. Today she was very tired and weak and could hardly get out of bed. SHe normally drives but has not been able to do so for the past several days. SO she was brought to the ED. In ED she was found to have dehydration and RADHA. Home Medications Scheduled Benazepril/Hydrochlorothiazide (Benazepril-Hctz 20-12.5 mg Tab) 1 Each Tablet, 1 TAB PO DAILY, (Reported) Cholecalciferol (Vitamin D3) (Vitamin D3) 1,000 Unit Tablet, 1,000 UNITS PO DAILY, (Reported) Levothyroxine Sodium (Levothyroxine Sodium) 112 Mcg Tablet, 112 MCG PO DAILY, (Reported) Magnesium Chloride (Mag64) 64 Mg Tablet.dr, 128 MG PO DAILY, (Reported) Salmeterol/Fluticasone (Advair 250-50 Diskus) 14 Puff/Inhaler Aerp, 1 PUFF INH BID, (Reported) Scheduled PRN Omeprazole (Omeprazole) 40 Mg Capsule.dr, 40 MG PO DAILY PRN for HEARTBURN, (Reported) Allergies Coded Allergies: diphenhydramine (Verified Allergy, Unknown, resp distress, 11/09/19) Sulfa (Sulfonamide Antibiotics) (Verified Adverse Reaction, Unknown, "can't tolerate them", 11/09/19) codeine (Verified Adverse Reaction, Unknown, "works the opposite way", 11/09/19) doxycycline (Verified Adverse Reaction, Unknown, stomach upset, 11/09/19) moxifloxacin (Verified Adverse Reaction, Unknown, "can't tolerate them", 11/09/19) Past Medical History Medical History Asymptomatic COVID-19 infection on 10/10/20, Hypertension, Asthma, hypothyroidism, hypomagnesemia, history of TB status post treatment, history of right bundle- branch block Surgical History Partial hysterectomy Tonsillectomy appendectomy Family History Father: kidney failure. at 34 y/o Mother: Healthy. at 94 y/o Social History * Smoker: Denies Alcohol: rarely Drugs: denies A-FIB/CHADSVASC A-FIB History Current/History of A-Fib/PAF?: No Review of Systems Constitutional: Reports: Weakness, Fatigue; Denies: Chills, Fever, Night Sweats Eyes: Denies: Pain, Vision change ENT: Denies: Head Aches, Ear Pain, Dysphagia Skin: Denies: Rash, Lesions, Breakdown Pulmonary: Denies: Dyspnea, Cough Cardiovascular: Denies: Chest Pain, Palpitations, Orthopnea, Paroxysmal Noc. Dyspnea, Lt Headedness Gastrointestinal: Reports: Nausea, Abdominal Pain, Diarrhea Genitourinary: Denies: Dysuria, Frequency, Incontinence, Retention Hematologic: Denies: Bruising, Bleeding Excessively Musculoskeletal: Denies: Neck Pain, Back Pain, Joint Pain, Muscle Pain, Spasms Physical Examination General Exam: Positive: Alert, Cooperative, No Acute Distress Eye Exam: Positive: PERRLA, Conjunctiva & lids normal, EOMI; Negative: Sclera icteric ENT Exam: Positive: Atraumatic, Mucous membr. moist/pink, Pharynx Normal Neck Exam: Positive: Supple; Negative: JVD, thyromegaly Chest Exam: Positive: Clear to auscultation, Normal air movement Heart Exam: Positive: Rate Normal, Regular Rhythm, Normal S1, Normal S2; Negative: Murmurs, Rubs Abdomen Exam: Positive: Normal bowel sounds, Soft, Tenderness (in the periumbilical area), Other (No guarding or rigidity or rebound); Negative: Hepatospenomegaly Vital Signs Vital Signs Date Time Temp Pulse Resp B/P (MAP) Pulse Ox O2 Delivery O2 Flow Rate FiO2 10/24/20 13:11 96.9 10/24/20 13:09 95 100 10/24/20 12:59 18 116/59 (78) Room Air Laboratory Data Labs 24H Laboratory Tests 2 10/24/20 13:31: Immature Granulocyte % (Auto) 0.5, Neutrophils (%) (Auto) 75.5H, Lymphocytes (%) (Auto) 11.1L, Monocytes (%) (Auto) 9.7H, Eosinophils (%) (Auto) 2.4, Basophils (%) (Auto) 0.8, Neutrophils # (Auto) 6.5, Lymphocytes # (Auto) 1.0L, Monocytes # (Auto) 0.8, Eosinophils # (Auto) 0.2, Basophils # (Auto) 0.1, Nucleated Red Blood Cells % (auto) 0.0, Anion Gap 13, Glomerular Filtration Rate 22.7L, Calcium Level 9.7, Magnesium Level 1.7L, Total Bilirubin 0.6, Aspartate Amino Transf (AST/SGOT) 23, Alanine Aminotransferase (ALT/SGPT) 22, Alkaline Phosphatase 99, Total Protein 6.5, Albumin 2.9L, Albumin/Globulin Ratio 0.8L, Thyroid Stimulating Hormone (TSH) 0.155L, Free Thyroxine 1.13 CBC/BMP Laboratory Tests 10/24/20 13:31 Assessment/Plan 80 year old independent female with PMH of Asthma, Latent TB, DM, HTN, hypothyroid, GERD was exposed to granddaughter who was tested positive for COVID in the first week of Oct. After that she had some cold, sinus congestion and increased cough so she was tested on 10/10/20 and came back positive. She did not have any other respiratory symptoms. But she has not been feeling well for the past 4 to 5 days, weak tired, poor appetite, nausea. THen she started having crampy abdominal pain and diarrhea so came to the ED. In ED she was found to have Dehydration and RADHA so she was admitted to the hospital. RADHA due to diarrhea, poor oral intake on the back ground of ACEI and diuretics will give IVF hold ACEI and diuretics. Diarrhea likely due to COVID -19 infection I do not think this is a bacterial infection as there is no elevated WBC or fever. will order GI panel. Recent COVID-19 infection on 10/10/20 No respiratory symptoms Hypertension hold acei and diuretics. Hypomagnesemia replaced Asthma continue advair albuterol prn Hypothyroid synthroid GERD PPI. Plan / VTE VTE Prophylaxis Ordered?: Yes BENI COATS MD Oct 24, 2020 15:06
[2020-10-24] MEDS ORDERED: MAG SULF 1GM/100ML (MAG RUN) 1 GM in IV 1 EA IV ONE (16:30)
[2020-10-24] MEDS: ONDANSETRON 4MG/2ML VIAL IV SCH ×2 (17:57→20:40)
[2020-10-24 22:00] VITALS: BP 127/62
[2020-10-24] MEDS: ADVAIR HFA 230/21MCG INHALER INH SCH (22:00)
[2020-10-24] MEDS ORDERED: ACETAMINOPHEN TAB 650MG DOSE (2X325MG) PO ONE (22:30)
[2020-10-25] MEDS: NS 1,000 ML IV SCH ×2 (03:24→09:45)
[2020-10-25] MEDS: ONDANSETRON 4MG/2ML VIAL IV SCH ×4 (03:45→21:43)
[2020-10-25 06:00] VITALS: BP 102/50
[2020-10-25 06:00] LABS: BASO # 0.1 10^3/uL (0.0-0.2); EOS # 0.3 10^3/uL (0.0-0.5); EOS % 6.1 % (0.0-3.0); HEMATOCRIT 31.9 % (36.0-47.0); HEMOGLOBIN 10.7 g/dl (12.0-15.5); LYMPH # 0.8 10^3/uL (1.5-5.0); LYMPH % 17.4 % (24.0-44.0); MEAN CORPUSCULAR HEMOGLOBIN 34.2 pg (27.0-33.0); MEAN CORPUSCULAR HGB CONC 33.5 g/dl (32.0-36.5); MEAN CORPUSCULAR VOLUME 101.9 fl (80.0-96.0); MONO # 0.6 10^3/uL (0.0-0.8); MONO % 12.6 % (2.0-8.0); NEUTROPHILS % 62.5 % (36.0-66.0); PLATELET COUNT, AUTOMATED 221 10^3/uL (150-450); RED BLOOD COUNT 3.13 10^6/uL (4.00-5.40); WHITE BLOOD COUNT 4.8 10^3/uL (4.0-10.0)
[2020-10-25 06:38] LABS: CALCIUM LEVEL 8.4 MG/DL (8.8-10.2); CREATININE FOR GFR 1.52 MG/DL (0.55-1.30); POTASSIUM SERUM 3.6 MEQ/L (3.5-5.1)
[2020-10-25 07:37] LABS: MAGNESIUM LEVEL 2.1 MG/DL (1.8-2.4)
[2020-10-25] MEDS: ADVAIR HFA 230/21MCG INHALER INH SCH ×2 (08:01→20:31)
[2020-10-25] MEDS: PANTOPRAZOLE 40MG VIAL (C9113 PER 1) IV SCH (08:13)
[2020-10-25] MEDS: ENOXAPARIN 30MG/0.3ML SYRINGE (J1650 PER 10MG) SC SCH (08:17)
--- NOTE | 2020-10-25 10:44 | IPNPDOC ---
Subjective Date Seen The patient was seen on 10/25/20. Subjective Chief Complaint/HPI Feeling better today. More energy but still very poor appetite, Did not have any further diarrhea overnight Objective Physical Examination General Exam: Positive: Alert, Cooperative, No Acute Distress Eye Exam: Positive: PERRLA, Conjunctiva & lids normal, EOMI; Negative: Sclera icteric ENT Exam: Positive: Atraumatic, Mucous membr. moist/pink, Pharynx Normal Neck Exam: Positive: Supple; Negative: JVD, thyromegaly Chest Exam: Positive: Clear to auscultation, Normal air movement Heart Exam: Positive: Rate Normal, Regular Rhythm, Normal S1, Normal S2; Negative: Murmurs, Rubs Abdomen Exam: Positive: Normal bowel sounds, Soft, Other (No guarding or rigidity or rebound); Negative: Tenderness Extremity Exam: Negative: Clubbing, Cyanosis, Edema Skin Exam: Positive: Nl turgor and temperature; Negative: Rash, Breakdown Assessment /Plan Assessment 80 year old independent female with PMH of Asthma, Latent TB, DM, HTN, hypothyroid, GERD was exposed to granddaughter who was tested positive for COVID in the first week of Oct. After that she had some cold, sinus congestion and increased cough so she was tested on 10/10/20 and came back positive. She did not have any other respiratory symptoms. But she has not been feeling well for the past 4 to 5 days, weak tired, poor appetite, nausea. THen she started having crampy abdominal pain and diarrhea so came to the ED. In ED she was found to have Dehydration and RADHA so she was admitted to the hospital. RADHA due to diarrhea, poor oral intake on the back ground of ACEI and diuretics improving hold ACEI and diuretics. Diarrhea likely due to COVID -19 infection GI panel negative Recent COVID-19 infection on 10/10/20 No respiratory symptoms Hypertension hold acei and diuretics. Hypomagnesemia replaced Asthma continue advair albuterol prn Hypothyroid synthroid GERD PPI. Plan/VTE VTE Prophylaxis Ordered?: Yes VS, I&O, 24H, Fishbone Vital Signs/I&O Vital Signs Date Time Temp Pulse Resp B/P (MAP) Pulse Ox O2 Delivery O2 Flow Rate FiO2 10/25/20 06:00 98.4 77 18 102/50 (67) 99 Room Air I&O- Last 24 Hours up to 6 AM 10/25/20 06:00 Intake Total 1425 ml Output Total 720 ml Balance 705 ml Laboratory Data 24H LABS Laboratory Tests 2 10/24/20 13:31: Immature Granulocyte % (Auto) 0.5, Neutrophils (%) (Auto) 75.5H, Lymphocytes (%) (Auto) 11.1L, Monocytes (%) (Auto) 9.7H, Eosinophils (%) (Auto) 2.4, Basophils (%) (Auto) 0.8, Neutrophils # (Auto) 6.5, Lymphocytes # (Auto) 1.0L, Monocytes # (Auto) 0.8, Eosinophils # (Auto) 0.2, Basophils # (Auto) 0.1, Nucleated Red Blood Cells % (auto) 0.0, Anion Gap 13, Glomerular Filtration Rate 22.7L, Calcium Level 9.7, Magnesium Level 1.7L, Total Bilirubin 0.6, Aspartate Amino Transf (AST/SGOT) 23, Alanine Aminotransferase (ALT/SGPT) 22, Alkaline Phosphatase 99, Total Protein 6.5, Albumin 2.9L, Albumin/Globulin Ratio 0.8L, Thyroid Stimulating Hormone (TSH) 0.155L, Free Thyroxine 1.13 10/25/20 05:21: Immature Granulocyte % (Auto) 0.4, Neutrophils (%) (Auto) 62.5, Lymphocytes (%) (Auto) 17.4L, Monocytes (%) (Auto) 12.6H, Eosinophils (%) (Auto) 6.1H, Basophils (%) (Auto) 1.0, Neutrophils # (Auto) 3.0, Lymphocytes # (Auto) 0.8L, Monocytes # (Auto) 0.6, Eosinophils # (Auto) 0.3, Basophils # (Auto) 0.1, Nucleated Red Blood Cells % (auto) 0.0, Anion Gap 12, Glomerular Filtration Rate 35.0, Calcium Level 8.4L, Magnesium Level 2.1 CBC/BMP Laboratory Tests 10/24/20 13:31 10/25/20 05:21 Microbiology Microbiology 10/24/20 Gastrointestinal Tract Panel (PCR) - Final, Complete BENI COATS MD Oct 25, 2020 10:44
[2020-10-25 14:00] VITALS: BP 117/63
[2020-10-25] MEDS ORDERED: ACETAMINOPHEN 325 MG TAB PO ONE (21:30)
[2020-10-25 22:00] VITALS: BP 124/65
[2020-10-26] MEDS: ONDANSETRON 4MG/2ML VIAL IV SCH ×2 (03:03→08:13)
[2020-10-26] MEDS: NS 1,000 ML IV SCH (05:23)
[2020-10-26 06:00] VITALS: BP 121/62
[2020-10-26 06:15] LABS: BASO % 1.2 % (0.0-1.0); EOS # 0.3 10^3/uL (0.0-0.5); EOS % 8.8 % (0.0-3.0); HEMATOCRIT 30.8 % (36.0-47.0); HEMOGLOBIN 9.9 g/dl (12.0-15.5); LYMPH # 0.9 10^3/uL (1.5-5.0); LYMPH % 25.9 % (24.0-44.0); MEAN CORPUSCULAR HEMOGLOBIN 33.3 pg (27.0-33.0); MEAN CORPUSCULAR HGB CONC 32.1 g/dl (32.0-36.5); MEAN CORPUSCULAR VOLUME 103.7 fl (80.0-96.0); MONO # 0.4 10^3/uL (0.0-0.8); MONO % 13.1 % (2.0-8.0); NEUTROPHILS # 1.7 10^3/uL (1.5-8.5); NEUTROPHILS % 50.7 % (36.0-66.0); PLATELET COUNT, AUTOMATED 218 10^3/uL (150-450); RED BLOOD COUNT 2.97 10^6/uL (4.00-5.40); WHITE BLOOD COUNT 3.3 10^3/uL (4.0-10.0)
[2020-10-26 06:29] LABS: CALCIUM LEVEL 8.2 MG/DL (8.8-10.2); CREATININE FOR GFR 1.23 MG/DL (0.55-1.30); GLOMERULAR FILTRATION RATE 44.7 (>32); POTASSIUM SERUM 3.5 MEQ/L (3.5-5.1)
[2020-10-26] MEDS: ADVAIR HFA 230/21MCG INHALER INH SCH (07:12)
[2020-10-26] MEDS: PANTOPRAZOLE 40MG VIAL (C9113 PER 1) IV SCH (08:13)
[2020-10-26] MEDS: ENOXAPARIN 30MG/0.3ML SYRINGE (J1650 PER 10MG) SC SCH (08:13)
[2020-10-26] MEDS ORDERED: LEVOTHYROXINE 112MCG TABLET (0.112MG) PO SCH (09:00)
--- NOTE | 2020-10-29 22:59 | DS.PDOC ---
Discharge Summary General Date of Admission Oct 24, 2020 at 15:39 Date of Discharge 10/26/20 Discharge Summary PROCEDURES PERFORMED DURING STAY: [None]. DISCHARGE DIAGNOSES: RADHA Viral diarrhea with dehydration COVID-19 infection 10/10/20 Hypomagnesemia SECONDARY DIAGNOSIS: Hypertension, Asthma, hypothyroidism, hypomagnesemia, history of TB status post treatment, history of right bundle-branch block COMPLICATIONS/CHIEF COMPLAINT: Acute Kidney Injury. HOSPITAL COURSE: 80 year old independent female with PMH of Asthma, Latent TB, DM, HTN, hypothyroid, GERD was exposed to granddaughter who was tested positive for COVID in the first week of Oct. After that she had some cold, sinus congestion and increased cough so she was tested on 10/10/20 and came back positive. She did not have any other respiratory symptoms. But she has not been feeling well for the past 4 to 5 days, weak tired, poor appetite, nausea. THen she started having crampy abdominal pain and diarrhea so came to the ED. In ED she was found to have Dehydration and RADHA so she was admitted to the hospital. RADHA due to diarrhea, poor oral intake on the back ground of ACEI and diuretics improving hold ACEI and diuretics for 5 days Diarrhea likely due to COVID -19 infection GI panel negative Recent COVID-19 infection on 10/10/20 No respiratory symptoms Hypertension hold acei and diuretics for 5 days Hypomagnesemia replaced Asthma continue advair albuterol prn Hypothyroid synthroid GERD PPI. DISCHARGE MEDICATIONS: Please see below. ALLERGIES: Please see below. PHYSICAL EXAMINATION ON DISCHARGE: VITAL SIGNS: Please see below. General Exam: Positive: Alert, Cooperative, No Acute Distress Eye Exam: Positive: PERRLA, Conjunctiva & lids normal, EOMI; Negative: Sclera icteric ENT Exam: Positive: Atraumatic, Mucous membr. moist/pink, Pharynx Normal Neck Exam: Positive: Supple; Negative: JVD, thyromegaly Chest Exam: Positive: Clear to auscultation, Normal air movement Heart Exam: Positive: Rate Normal, Regular Rhythm, Normal S1, Normal S2; Negative: Murmurs, Rubs Abdomen Exam: Positive: Normal bowel sounds, Soft, Other (No guarding or rigidity or rebound); Negative: Tenderness Extremity Exam: Negative: Clubbing, Cyanosis, Edema Skin Exam: Positive: Nl turgor and temperature; Negative: Rash, Breakdown LABORATORY DATA: Please see below. ACTIVITY: [As tolerated]. DIET: As tolerated DISPOSITION: 01 Home, Self-Care. DISCHARGE INSTRUCTIONS: PMD in 1 week DISCHARGE CONDITION: [Stable]. TIME SPENT ON DISCHARGE: 35 minutes. Vital Signs/I&Os Vital Signs Date Time Temp Pulse Resp B/P (MAP) Pulse Ox O2 Delivery O2 Flow Rate FiO2 10/26/20 06:00 98.4 96 20 121/62 (81) 99 10/25/20 14:00 Room Air Laboratory Data CBC/BMP Item Value Date Time White Blood Count 3.3 10^3/uL L 10/26/20527 Red Blood Count 2.97 10^6/uL L 10/26/20527 Hemoglobin 9.9 g/dl L 10/26/20527 Hematocrit 30.8 % L 10/26/20527 Mean Corpuscular Volume 103.7 fl H 10/26/20527 Mean Corpuscular Hemoglobin 33.3 pg H 10/26/20527 Mean Corpuscular Hemoglobin Concent 32.1 g/dl 10/26/20527 Red Cell Distribution Width 12.9 % 10/26/20527 Platelet Count 218 10^3/uL 10/26/20527 Immature Granulocyte % (Auto) 0.3 % 10/26/20527 Neutrophils (%) (Auto) 50.7 % 10/26/20527 Lymphocytes (%) (Auto) 25.9 % 10/26/20527 Monocytes (%) (Auto) 13.1 % H 10/26/20527 Eosinophils (%) (Auto) 8.8 % H 10/26/20527 Basophils (%) (Auto) 1.2 % H 10/26/20527 Neutrophils # (Auto) 1.7 10^3/uL 10/26/20 0528 Lymphocytes # (Auto) 0.9 10^3/uL L 10/26/20527 Monocytes # (Auto) 0.4 10^3/uL 10/26/20 0528 Eosinophils # (Auto) 0.3 10^3/uL 10/26/20 0528 Basophils # (Auto) 0.0 10^3/uL 10/26/20 0528 Nucleated Red Blood Cells % (auto) 0.0 % 2/25/21 0528 Sodium Level 145 MEQ/L 10/26/20 05 Potassium Level 3.5 MEQ/L 10/26/20 05 Chloride Level 121 MEQ/L H 10/26/20 05 Carbon Dioxide Level 15 MEQ/L L 10/26/20 05 Anion Gap 9 MEQ/L 10/26/20 0528 Blood Urea Nitrogen 27 MG/DL H 10/26/20 0528 Creatinine 1.23 MG/DL 10/26/20 05 Glomerular Filtration Rate 44.7 10/26/20 05 Fasting Glucose 85 MG/DL 10/26/20 0528 Calcium Level 8.2 MG/DL L 10/26/20 05 Microbiology Microbiology 10/24/20 Gastrointestinal Tract Panel (PCR) - Final, Complete Discharge Medications Scheduled Cholecalciferol (Vitamin D3) (Vitamin D3) 1,000 Unit Tablet, 1,000 UNITS PO DAILY, (Reported) Levothyroxine Sodium (Levothyroxine Sodium) 112 Mcg Tablet, 112 MCG PO DAILY, (Reported) Magnesium Chloride (Mag64) 64 Mg Tablet.dr, 128 MG PO DAILY, (Reported) Salmeterol/Fluticasone (Advair 250-50 Diskus) 14 Puff/Inhaler Aerp, 1 PUFF INH BID, (Reported) Scheduled PRN Omeprazole (Omeprazole) 40 Mg Capsule.dr, 40 MG PO DAILY PRN for HEARTBURN, (Reported) Allergies Coded Allergies: diphenhydramine (Verified Allergy, Unknown, resp distress, 11/09/19) Sulfa (Sulfonamide Antibiotics) (Verified Adverse Reaction, Unknown, "can't tolerate them", 11/09/19) codeine (Verified Adverse Reaction, Unknown, "works the opposite way", 11/09/19) doxycycline (Verified Adverse Reaction, Unknown, stomach upset, 11/09/19) moxifloxacin (Verified Adverse Reaction, Unknown, "can't tolerate them", 11/09/19) BENI COATS MD Oct 29, 2020 22:59
== END 2020-10-26 09:27 | disposition home or self-care (01) | DRG 392 ==
LOC: EDBD 12:47 → M ED 12:47 → M ED INP 15:39 → M MSPAV 16:57
PROVIDERS: ADMIT Internal Medicine Nephrology; ATTEND Internal Medicine Nephrology
DX: A08.4 Viral intestinal infection, unspecified (principal); N17.9 Acute kidney failure, unspecified; I10 Essential (primary) hypertension; J45.909 Unspecified asthma, uncomplicated; E83.42 Hypomagnesemia; E86.0 Dehydration; E03.9 Hypothyroidism, unspecified; Z22.7 Latent tuberculosis; I45.10 Unspecified right bundle-branch block; E11.9 Type 2 diabetes mellitus without complications; K21.9 Gastro-esophageal reflux disease without esophagitis; Z79.899 Other long term (current) drug therapy; Z88.2 Allergy status to sulfonamides; Z88.5 Allergy status to narcotic agent; Z88.8 Allergy status to other drugs, medicaments and biological substances

== ENCOUNTER → 2023-04-04 | Outpatient (CLI) | payer MEDICARE, BC, OTHER ==
[~2023-04-04] MED LIST changes: +ADVICAP PO; +ALBU2.5V10 INH; -ALBU83IN INH; -D31000TA2 PO; +ELIQ2.5T; +OMEP40CA5 PO; +PRED10TA2 PO; +VITA100093 PO
== END ==
LOC: M WUC 10:07
PROVIDERS: ATTEND Physician Assistant
DX: M17.11 Unilateral primary osteoarthritis, right knee (principal)

== ENCOUNTER → 2023-11-13 | Outpatient (CLI) | payer MEDICARE, BC, OTHER ==
[~2023-11-13] MED LIST changes: +ALBU8.5H; +BENA20TA6
[2023-11-13 13:36] LABS: HEMATOCRIT 38.2 % (36.0-47.0); HEMOGLOBIN 12.6 g/dl (12.0-15.5); MEAN CORPUSCULAR HEMOGLOBIN 35.2 pg (27.0-33.0); MEAN CORPUSCULAR VOLUME 106.7 fl (80.0-96.0); PLATELET COUNT, AUTOMATED 278 10^3/uL (150-450); RED BLOOD COUNT 3.58 10^6/uL (4.00-5.40)
[2023-11-13 13:37] LABS: ALBUMIN 3.4 G/DL (3.2-5.2); BILIRUBIN,TOTAL 0.7 MG/DL (0.3-1.2); CALCIUM LEVEL 9.6 MG/DL (8.3-10.6); CHOLESTEROL RISK RATIO 3.02 (<5); CREATININE FOR GFR 1.58 MG/DL (0.55-1.30); GLOMERULAR FILTRATION RATE 33.2 (>32); LDL CHOLESTEROL 117.8 MG/DL (<100); POTASSIUM SERUM 4.4 MMOL/L (3.5-5.1); THYROID STIMULATING HORMONE 11.802 uIU/ML (0.55-4.78); TOTAL PROTEIN 6.4 G/DL (5.7-8.2)
[2023-11-14 08:36] LABS: WHITE BLOOD COUNT 7.4 10^3/uL (4.0-10.0)
== END ==
LOC: M WUC 08:56
PROVIDERS: ATTEND Physician Assistant
DX: I10 Essential (primary) hypertension (principal); E78.5 Hyperlipidemia, unspecified; E03.9 Hypothyroidism, unspecified

== ENCOUNTER → 2024-08-10 | Outpatient (CLI) | payer MEDICARE, BC, OTHER ==
[~2024-08-10] MED LIST changes: -ADV250INH INH; +ADVA1AER9 INH; +DIPH1TAB80 PO; -DIPH2.5T14 PO
[2024-08-10 10:53] LABS: HEMOGLOBIN 12.1 g/dl (12.0-15.5); MEAN CORPUSCULAR HEMOGLOBIN 36.6 pg (27.0-33.0); MEAN CORPUSCULAR HGB CONC 33.6 g/dl (32.0-36.5); MEAN CORPUSCULAR VOLUME 108.8 fl (80.0-96.0); PLATELET COUNT, AUTOMATED 206 10^3/uL (150-450); RED BLOOD COUNT 3.31 10^6/uL (4.00-5.40)
[2024-08-10 11:23] LABS: ALBUMIN 3.1 G/DL (3.2-5.2); BILIRUBIN,TOTAL 0.5 MG/DL (0.3-1.2); CALCIUM LEVEL 9.7 MG/DL (8.3-10.6); CREATININE FOR GFR 1.32 MG/DL (0.55-1.30); GLOMERULAR FILTRATION RATE 40.8 (>32); POTASSIUM SERUM 4.1 MMOL/L (3.5-5.1); THYROID STIMULATING HORMONE 0.859 uIU/ML (0.55-4.78); TOTAL PROTEIN 6.3 G/DL (5.7-8.2)
[2024-08-11 07:08] LABS: WHITE BLOOD COUNT 7.1 10^3/uL (4.0-10.0)
== END ==
LOC: M WUC 08:26
PROVIDERS: ATTEND Physician Assistant
DX: E03.9 Hypothyroidism, unspecified (principal); I48.91 Unspecified atrial fibrillation; I10 Essential (primary) hypertension